=== PATIENT | female | born 1970 | race Caucasian/White ===

== ENCOUNTER 2019-08-10 10:29 | Outpatient (CLI) | payer BC, SELFPAY ==
--- NOTE | ~2019-08-10 | US_ITS ---
EXAMINATION: US thyroid DATE: 08/10/2019 11:09 INDICATION: Nontoxic goiter. Foc's. TECHNIQUE: Multiple ultrasound images of the thyroid were obtained. COMPARISON: None. FINDINGS: The right thyroid lobe measures 6.2 x 3.6 x 2.7 cm. The left thyroid lobe measures 5.5 x 2.1 x 2.5 c m. There is diffuse heterogeneously decreased echogenicity with coarsened echotexture and diffusely increased vascular flow on color Doppler throughout both thyroid lobes consistent with given history of Fco's thyroiditis. Again seen are couple relatively well-defined and homogeneous isoechoic s olid nodules (TI-RADS 3, mildly suspicious , FNA if >=2.5 cm, annual followup is >1.5 cm) in the de ep left thyroid lobe, the larger measuring 2.2 x 1.4 x 1.4 cm and 1.1 x 1.1 x 1.1 cm. Also unchanged is a well-defined round solid hypoechoic nodule with peripheral rim calcification measuring 10 x 9 x 9 mm in the right thyroid lobe. (TI-RADS 4, moderately suspicious , FNA if >=1.5 cm, annual followup is >1 cm). IMPRESSION: 1. Enlarged heterogeneous and hypervascular thyroid consistent with given history of Fco's thyr oiditis. 2. No interval change in a few thyroid nodules which remains below size criteria for biopsy and phillip nued annual ultrasound would be recommended. Reviewed, dictated and finalized at location A. IMPRESSION: 1. Enlarged heterogeneous and hypervascular thyroid consistent with given histo ry of Fco's thyroiditis. 2. No interval change in a few thyroid nodules which remains below size criteri a for biopsy and continued annual ultrasound would be recommended.
== END 2019-08-10 10:30 | disposition home or self-care (01) ==
PROVIDERS: PCP Internal Medicine; Visit Provider Internal Medicine Endocrinology, Diabetes & Metabolism
DX: E04.2 Nontoxic multinodular goiter (principal); E06.3 Autoimmune thyroiditis
CPT/HCPCS: 76536

== ENCOUNTER → 2020-01-04 13:46 | Outpatient (CLI) | payer BC, SELFPAY ==
--- NOTE | ~2020-01-04 | MM_ITS ---
EXAMINATION: MM screening tiago BI w mariam HISTORY: Screening mammogram TECHNIQUE: Craniocaudal and mediolateral oblique 3-D tomosynthesis images were obtained and synthetic 2-D images were generated. CAD analysis was submitted and interpreted. COMPARISON: 10/06/2018, 09/18/2017, 08/22/2016 bilateral digital screening mammogram examinations BREAST PARENCHYMAL COMPOSITION: The breasts are almost entirely fatty. FINDINGS: There is no evidence of suspicious mass, calcification, or architectural distortion to sugg est malignancy in either breast. There has been no suspicious interval change. IMPRESSION: 1. No mammographic evidence of malignancy. 2. Recommend routine screening mammography in one year. BI-RADS Category 1: Negative Reviewed, dictated and finalized at location A.
== END ==
PROVIDERS: PCP Internal Medicine; Visit Provider Nurse Practitioner
DX: Z12.31 Encounter for screening mammogram for malignant neoplasm of breast (principal)
CPT/HCPCS: 77063; 77067

== ENCOUNTER → 2020-06-13 11:17 | Outpatient (CLI) | payer BC, SELFPAY ==
--- NOTE | ~2020-06-13 | US_ITS ---
EXAMINATION: US thyroid DATE: 06/13/2020 11:43 INDICATION: Thyroid nodule. Fco's thyroiditis. TECHNIQUE: Multiple ultrasound images of the thyroid were obtained. COMPARISON: None. FINDINGS: The right thyroid lobe measures 5.2 x 3.3 x 3.1 cm. The left thyroid lobe measures 5.5 x 3.3 x 2.8 c m. Unchanged 10 mm solid hypoechoic TI-RADS 4 nodule with well-defined peripheral margin, in places echogenic and likely partially calcified. There is a new 2.0 cm wider than tall very hypoechoic poten tially anechoic nodules in the right thyroid with posterior acoustic enhancement, unclear whether cys tic TI RADS 1 or solid TI RADS 4 nodule. There are a couple isoechoic solid nodules with smooth faizan ns and without echogenic foci (TI-RADS 3, mildly suspicious , FNA if >=2.5 cm, annual followup is >1. 5 cm) at the deep inferior left thyroid lobe. The larger measures 2.2 x 1.9 x 1.6 cm which is mildly increased from prior measurements of 2.0 x 1.2 x 1.4 cm. The smaller and more cephalad nodule has inc reased from 1.1 cm to 1.3 cm in maximal diameter. There is heterogeneous decreased ecstasy with coars ened echotexture throughout the remainder of the thyroid consistent with given history of Fco's thyroiditis. IMPRESSION: 1. New 2 cm very hypoechoic nodules in the right thyroid lobe, unclear whether cystic TI RADS 1 or so lid TI RADS 4, the latter which would meet criteria for biopsy. Would recommend scheduling patient fo r ultrasound-guided biopsy which could be deferred if upon real-time evaluation the lesion appears de finitively cystic. 2. A few additional bilateral thyroid nodules which remain below consensus criteria for biopsy and wo uld recommend one-year follow-up ultrasound. Reviewed, dictated and finalized at location A. CONSULTANT IMPRESSION: 1. New 2 cm very hypoechoic nodules in the right thyroid lobe, unclear whether cystic TI RADS 1 or solid TI RADS 4, the latter which would meet criteria for b iopsy. Would recommend scheduling patient for ultrasound-guided biopsy which co uld be deferred if upon real-time evaluation the lesion appears definitively cy stic. 2. A few additional bilateral thyroid nodules which remain below consensus crit eria for biopsy and would recommend one-year follow-up ultrasound.
== END ==
PROVIDERS: Visit Provider Internal Medicine Endocrinology, Diabetes & Metabolism
DX: E04.1 Nontoxic single thyroid nodule (principal); R91.8 Other nonspecific abnormal finding of lung field
CPT/HCPCS: 76536

== ENCOUNTER → 2021-01-14 15:46 | Outpatient (CLI) | payer BC, SELFPAY ==
--- NOTE | ~2021-01-14 | MM_ITS ---
EXAMINATION: MM screening tiago BI w mariam HISTORY: Screening TECHNIQUE: Craniocaudal and mediolateral oblique 3-D tomosynthesis images were obtained and synthetic 2-D images were generated. CAD analysis was submitted and interpreted. COMPARISON: Comparison to multiple prior studies sequentially, with oldest reviewed study dated 07/28. BREAST PARENCHYMAL COMPOSITION: There are scattered areas of fibroglandular density. FINDINGS: There is no evidence of suspicious mass, calcification, or architectural distortion to sugg est malignancy in either breast. There has been no suspicious interval change. IMPRESSION: 1. No mammographic evidence of malignancy. 2. Recommend routine screening mammography in one year. BI-RADS Category 1: Negative Reviewed, dictated and finalized at location A.
== END ==
PROVIDERS: PCP Internal Medicine; Visit Provider Nurse Practitioner
DX: Z12.31 Encounter for screening mammogram for malignant neoplasm of breast (principal)
CPT/HCPCS: 77063; 77067

== ENCOUNTER 2022-04-15 00:08 | Day surgery (SDC) | payer BC, SELFPAY ==
[2022-04-01 14:44] VITALS: BMI 40.7
[2022-04-15 06:46] VITALS: BP 143/77; PULSE 95; RESP 18; TEMP 36.9; O2SAT 99
[2022-04-15 06:47] LABS: Glucose Point of Care 104 mg/dl (65-105)
[2022-04-15] MEDS: LACTATED RINGERS 1,000 ML 150 ML IV CONT (06:49)
--- NOTE | 2022-04-15 07:19 | SUR.PREOP ---
Pt reports LMP February 2022. Unable to urinate at this time. Pt denies any possibility of . Ok for no UPreg per Dr Tovar.
--- NOTE | 2022-04-15 07:21 | P.PNAN_ITS ---
Anes - Initial Pre Proc Eval Procedure: Operation Date: 04/15/22 08:00 Proposed Procedures p Screening Colonoscopy - Greg Jasso MD Date/Time: 04/15/22 07:21 Surgeon: Greg Jasso MD Pre Op Diagnosis: neoplasm screening Patient Data Age: 51 Gender: F Height: 1.57 m Weight: 99.9 kg Last Vital Signs Temp 98.5 F 04/15/22 06:46 Pulse 95 04/15/22 06:46 Resp 18 04/15/22 06:46 BP 143/77 H 04/15/22 06:46 Pulse Ox 99 04/15/22 06:46 O2 Del Method Room Air 04/15/22 06:46 Allergies Allergy/AdvReac Type Severity Reaction Status Date / Time No Known Allergies Allergy Verified 04/15/22 06:37 Home Medications Medication Instructions Recorded Confirmed Type icosapent ethyl 1 gram capsule 2 g PO BID 04/01/22 04/15/22 History (Vascepa) levothyroxine 75 mcg tablet 75 mcg PO DAILY 04/01/22 04/15/22 History (Synthroid) lisinopril 20 mg tablet 20 mg PO DAILY 04/01/22 04/15/22 History metformin 500 mg tablet,extended 500 mg PO DAILY 04/01/22 04/15/22 History release 24 hr metoprolol tartrate 25 mg tablet 25 mg PO BID 04/01/22 04/15/22 History semaglutide 0.25 mg or 0.5 mg (2 0.5 mg subcut DAILY 04/01/22 04/15/22 History mg/1.5 mL) subcutaneous pen injector (Ozempic) sertraline 50 mg tablet 50 mg PO DAILY 04/01/22 04/15/22 History Laboratory Tests 04/15/22 06:43 POC Capillary Glucose 104 mg/dl mg/dl (65-105) Patient hx anesthesia problems: none Family hx anesthesia problems: none Results Review: All pre-operative results and documents have been reviewed as part of the pre- operative evaluation. [facility] Family History Family History (Updated 05/26/16 @ 09:57 by DOCTOR UNKNOWN) Other Cerebrovascular accident Depression Diabetes mellitus Family history of malignant neoplasm of bone Family history of malignant neoplasm of thyroid Family history of osteoporosis Family history of thyroid disease Hypertension Social History Social History Smoking status: Never smoker Alcohol intake: never Spiritual care concerns: No Anes - Eval Final PreProcedure Day of Procedure 04/15/22 07:21 Patient weight: morbidly obese Heart: regular rate and rhythm Lungs: clear to auscultation Airway: Mallampati scale class II Neurological: alert and oriented Last oral intake: >/= 8 hours ASA classification: III Emergent: no Anesthetic plan: proceed Anesthesia type and monitoring: general GIVS and standard monitoring Results Review: All pre-operative results and documents have been reviewed as part of the pre- operative evaluation. Informed Consent: The patient's anesthetic plan and its attendant risks and benefits were discussed with the patient/family/POA. Questions were solicited and answers provided to the satisfaction of the patient/family/POA.
--- NOTE | 2022-04-15 07:46 | PM.HPGS ---
History of Present Illness History of Present Illness Consent: Risks, benefits, and alternatives have been discussed and questions answered. Patient agrees to proceed with procedure. Chief complaint: neoplasm screening Narrative: Alice Vazquez is a 51 year old female here for first screening colonoscopy Review of Systems Constitutional: Constitutional: Denies headache(s) and Denies weakness Eyes: Eyes: Denies blurry vision ENT: Reports Normal hearing present, Denies headache(s) and Denies neck pain Cardiovascular: Cardiovascular: Denies chest pain and Denies dyspnea Respiratory: Respiratory: Denies dyspnea Gastrointestinal: Gastrointestinal: Reports no additional gastrointestinal complaints Genitourinary: Genitourinary: Denies dysuria Musculoskeletal: Musculoskeletal: Denies neck pain Integumentary/Breasts: Skin/Breast: Denies dry skin Neurologic: Reports Normal hearing present, Denies headache(s) and Denies weakness Psychiatric: Psychiatric: Denies anxiety Endocrine: Endocrine: Denies change in body appearance Hematologic/Lymphatic: Hematologic/Lymphatic: Denies easy bleeding Allergic/Immunologic: Allergic/Immunologic: Denies urticaria [facility] Past Medical History Medical History (Updated 04/15/22 @ 07:47 by Greg Jasso MD) Colon cancer screening Family History Family History (Updated 05/26/16 @ 09:57 by DOCTOR UNKNOWN) Other Cerebrovascular accident Depression Diabetes mellitus Family history of malignant neoplasm of bone Family history of malignant neoplasm of thyroid Family history of osteoporosis Family history of thyroid disease Hypertension Social History Social History Smoking status: Never smoker Alcohol intake: never Spiritual care concerns: No Meds Home Medications and Allergies Home Medications Medication Instructions Recorded Confirmed Type icosapent ethyl 1 gram capsule 2 g PO BID 04/01/22 04/15/22 History (Vascepa) levothyroxine 75 mcg tablet 75 mcg PO DAILY 04/01/22 04/15/22 History (Synthroid) lisinopril 20 mg tablet 20 mg PO DAILY 04/01/22 04/15/22 History metformin 500 mg tablet,extended 500 mg PO DAILY 04/01/22 04/15/22 History release 24 hr metoprolol tartrate 25 mg tablet 25 mg PO BID 04/01/22 04/15/22 History semaglutide 0.25 mg or 0.5 mg (2 0.5 mg subcut DAILY 04/01/22 04/15/22 History mg/1.5 mL) subcutaneous pen injector (Ozempic) sertraline 50 mg tablet 50 mg PO DAILY 04/01/22 04/15/22 History Allergies Allergy/AdvReac Type Severity Reaction Status Date / Time No Known Allergies Allergy Verified 04/15/22 06:37 Vital Signs Vital Signs - 24 hr 04/15/22 06:46 Temperature 98.5 F Pulse Rate 95 Respiratory Rate 18 Blood Pressure 143/77 H Pulse Oximetry 99 Oxygen Delivery Room Air Exam Const: General: comfortable and no acute distress HENMT: Face/Nose/Sinus: Normal nares present Eyes: General: appearance normal, both eyes and all related structures Neck: Neck: no JVD Resp: Auscultation: clear to auscultation bilaterally Cardio: Rate: regular rate Rhythm: regular rhythm GI: Inspection: non-distended GI Palp: Yes Soft to palpation Skin: General skin exam: normal color Neuro: General: gait normal Speech: normal speech Extrem: General: normal to inspection Psych: Mental Status: mental status grossly normal Assessment and Plan Assessment and plan (1) Colon cancer screening: Code(s): Z12.11 - Encounter for screening for malignant neoplasm of colon Status: Acute Assessment and Plan: colonoscopy
[2022-04-15 08:18] VITALS: BP 98/54; PULSE 83; RESP 22; O2SAT 98
[2022-04-15 08:28] VITALS: BP 103/54; PULSE 84; RESP 22; O2SAT 94
[2022-04-15 08:38] VITALS: BP 108/64; PULSE 80; RESP 20; O2SAT 93
== END 2022-04-15 08:48 | disposition home or self-care (01) ==
PROVIDERS: PCP Internal Medicine; Visit Provider Internal Medicine Gastroenterology
PROC: 0DJD8ZZ Inspection of Lower Intestinal Tract, Via Natural or Artificial Opening Endoscopic (ICD-10-PCS; CPT 45378; principal; 2022-04-15 08:00)
DX: Z12.11 Encounter for screening for malignant neoplasm of colon (principal); D12.2 Benign neoplasm of ascending colon; K57.30 Diverticulosis of large intestine without perforation or abscess without bleeding; K64.8 Other hemorrhoids; Z79.84 Long term (current) use of oral hypoglycemic drugs; Z79.899 Other long term (current) drug therapy; E66.01 Morbid (severe) obesity due to excess calories; Z68.41 Body mass index [BMI] 40.0-44.9, adult
CPT/HCPCS: 45385; 45381; 82948; 88305; J2704; J7120

== ENCOUNTER → 2022-04-18 11:13 | Outpatient (CLI) | payer BC, SELFPAY ==
--- NOTE | ~2022-04-18 | MM_ITS ---
EXAMINATION: MM screening tiago BI w mariam HISTORY: Screening mammogram TECHNIQUE: Craniocaudal and mediolateral oblique 3-D tomosynthesis images were obtained and synthetic 2-D images were generated. CAD analysis was submitted and interpreted. COMPARISON: 01/14/2021, 01/04/2020, 10/06/2018 bilateral screening mammogram examinations BREAST PARENCHYMAL COMPOSITION: The breasts are almost entirely fatty. FINDINGS: There is no evidence of suspicious mass, calcification, or architectural distortion to sugg est malignancy in either breast. There has been no suspicious interval change. IMPRESSION: 1. No mammographic evidence of malignancy. 2. Recommend routine screening mammography in one year. BI-RADS Category 1: Negative Reviewed, dictated and finalized at location A. R OPERATOR
== END ==
PROVIDERS: PCP Internal Medicine; Visit Provider Nurse Practitioner
DX: Z12.31 Encounter for screening mammogram for malignant neoplasm of breast (principal)
CPT/HCPCS: 77063; 77067

== ENCOUNTER 2023-07-15 13:25 | Outpatient (CLI) | payer BC, SELFPAY ==
--- NOTE | ~2023-07-15 | MM_ITS ---
EXAMINATION: MM screening tiago BI w mariam HISTORY: Screening mammogram TECHNIQUE: Craniocaudal and mediolateral oblique 3-D tomosynthesis images were obtained and synthetic 2-D images were generated. CAD analysis was submitted and interpreted. COMPARISON: 04/18/2022, 01/14/2021 bilateral screening mammogram examinations BREAST PARENCHYMAL COMPOSITION: The breasts are almost entirely fatty. FINDINGS: There is no evidence of suspicious mass, calcification, or architectural distortion to sugg est malignancy in either breast. There has been no suspicious interval change. IMPRESSION: 1. No mammographic evidence of malignancy. 2. Recommend routine screening mammography in one year. BI-RADS Category 1: Negative Reviewed, dictated and finalized at location A.
== END 2023-07-15 13:26 ==
LOC: MICIMG 13:26
PROVIDERS: PCP Nurse Practitioner; Visit Provider Nurse Practitioner
DX: Z12.31 Encounter for screening mammogram for malignant neoplasm of breast (principal)
CPT/HCPCS: 77063; 77067

== ENCOUNTER 2023-10-05 10:45 | Outpatient (CLI) | payer BC, SELFPAY ==
--- NOTE | ~2023-10-05 | US_ITS ---
EXAMINATION: US thyroid DATE: 10/05/2023 11:03 INDICATION: Fco's thyroiditis. TECHNIQUE: Multiple ultrasound images of the thyroid were obtained. COMPARISON: Ultrasound 06/13/2020, 02/13/2016, 11/13/17 FINDINGS: The right thyroid lobe measures 7.7 x 3.1 x 2.9 cm. The left thyroid lobe measures 7.0 x 3.6 x 3.2 c m. The thyroid is diffusely heterogeneous and hypoechoic without any normal parenchyma. Vascularity is normal. In the right thyroid lobe, there is a 3.7 cm mixed cystic and solid, hyperechoic, wider th an tall nodule with smooth margin without echogenic foci (TI-RADS TR2). IMPRESSION: 1. Chronically heterogeneous thyroid, likely chronic lymphocytic (Fco) thyroiditis. 2. Right thyroid nodule, likely not clinically significant. No follow-up is needed. Reviewed, dictated and finalized at location E. IMPRESSION: 1. Chronically heterogeneous thyroid, likely chronic lymphocytic (Fco) th yroiditis. 2. Right thyroid nodule, likely not clinically significant. No follow-up is nee ded.
== END 2023-10-05 10:46 ==
PROVIDERS: PCP Nurse Practitioner; Visit Provider Internal Medicine
DX: E06.3 Autoimmune thyroiditis (principal)
CPT/HCPCS: 76536

== ENCOUNTER 2024-05-17 12:35 | Outpatient (CLI) | payer BC, SELFPAY ==
--- NOTE | ~2024-05-17 | US_ITS ---
EXAMINATION: US THYROID BIOPSY DATE: 05/17/2024 17:55 HONING JOB SETTER INDICATION: Bilateral thyroid nodules TECHNIQUE: The procedure for biopsy of the thyroid nodules and its benefits and risks were explained to the wally ent. Potential risk included were not limited to bleeding, infection, and nondiagnostic specimen. The right neck was prepped and draped in the usual sterile manner. 3 cc 1% lidocaine was used for local anesthesia. [6 passes were made with a 25G needle into the righ t-sided thyroid nodule. Appropriate needle location was documented with continuous sonographic willis nce. The specimens were passed to the cytopathologist in the room. All needles were removed and a sterile bandage applied over the biopsy site. Attention was then turned to the left neck. The left neck was prepped and draped in the usual sterile manner. 3 cc 1% lidocaine was used for local anesthesia. [6 passes were made with a 25G needle into the left -sided thyroid nodule. Appropriate needle location was documented with continuous sonographic guidan ce. The specimens were passed to the cytopathologist in the room. All needles were removed and a sterile bandage applied over the biopsy site. The patient tolerated the procedures without immediate complications or complaints. FINDINGS: Sonographic imaging demonstrates the needles advanced into the bilateral thyroid nodules fo r biopsy. IMPRESSION: 1. Successful ultrasound guided biopsy of bilateral thyroid nodules. Please refer to pathology repo rt for final histologic analysis. Reviewed, dictated and finalized at location A. NG JOB SETTER IMPRESSION: 1. Successful ultrasound guided biopsy of bilateral thyroid nodules. Please r efer to pathology report for final histologic analysis.
--- OUTSIDE RECORDS SUMMARY | 2024-05-17 13:09 | XMS_ITS ---
Author Organization [facility] Address [address] [place] [address] Care Team Providers Care Search Engine Optimization Specialist Name Role Phone Gautam Parker MD Primary Care Provider Marcia Watson Unavailable [phone] REASON FOR VISIT SCIT - Traditional Schedule Allergy immunotherapy Medications Medication SIG (Take, Route, Frequency, Duration) Notes Start Date End Date Status SIT (TRADITIONAL) variable per schedule SC per schedule for to be determined Active Encounters Encounter Location Date Provider Diagnosis [facility] [address] [place] [id number] 05/09/2024 Marcia Wade Allergic rhinitis du e to pollen J30.1 ; Other allergic rhinitis J30.89 and Other chronic allergic conjunctivitis H10.45 Assessments Encounter Date Diagnosis (ICD Code) Assessment Notes Treatment Notes Treatment Clinical Notes Section Notes 05/09/2024 Allergic rhinitis due to pollen (ICD-10 - J30.1) 05/09/2024 Other allergic rhinitis (ICD-10 - J30.89) 05/09/2024 Other chronic allergic conjunctivitis (ICD-10 - H10.45) Plan Of Treatment Medication Medication Name Sig Start Date Stop Date Notes SIT (TRADITIONAL) variable per schedule SC per schedule for to be determined Next Appt Details Follow Up: 1 Week, Reason: Provider Name:Marcia brown, 06/06/2024 09:00:00 AM, [address], [place], [address], Progress Notes * Arik VAZQUEZ:1970 (53 yo F)Acc No.[id number]:05/09/2024 SCIT-Aeroallergen Patient:Alice BERNAL Provider:?Marcia Wade MD :1970???Age:53 Y???Sex:Female D ate:05/09/2024 Address:[address] [place], [place] [phone] Pcp:Gautam Parker MD Subjective: * Chief Complaints: * ???SCIT - Traditional [place] Allergy immunotherapy * HPI: ???*Introduction:? The patient is here for scheduled immunotherapy. Please see the attached specialty form regarding the specifics of the administration of these vaccines. As per our protocol, they must undergo a screening health questionnaire (medication changes, reaction(s) to last immunotherapy dose(s), current health status, ACT (if appropriate), self-injectable epinephrine on patient(?) and peak flow (if appropriate)). Also, the patient must wait in our office for 30 minutes after receiving the vaccine(s). Furthermore, every patient must have an epinephrine pen (self-injectable) with them at the time of administration--and carry if for the following 1.5 hours after they leave our office. The patient must also have taken their antihistamine the day of the injection, preferably 2 hours prior. The consent form for SCIT (subcutaneous immunotherapy) is on file. * Medical History:? * Surgical History:? * Hospitalization/Major Diagno stic Procedure:? * Medications:? Objective: * Vitals:? Assessment: * Assessment: 1.?Allergic rhinitis due to pollen - J30.1 (Primary)???2.?Other allergic rhinitis - J30.89???3.?Other chronic allergic conjunctivitis - H10.45??? Plan: * Treatment: * Procedure Codes:?67502 IMMUN OTHERAPY INJECTIONS * Follow Up:?1 Week * Billing Information: * Visit Code:? * Procedure Codes:? 43038 IMMUNOTHERAPY INJECTIONS. * K ARCHER Sign off status: Completed true * Provider:?Marcia Wade MD Date:?04/21 Generated for Karin rosario/Margie/Vernonitting on:?05/17/2024 01:08 PM SHANK ARCHER History and Physical Notes * HPI (History of Present Illness) Category Sub-Category Detail Notes Category Not es *Introduction The patient is here for scheduled immunotherapy. Please see the attached specialty form regarding the specifics of the administration of these vaccines. As per our protocol, they must undergo a screening health questionnaire (medication changes, reaction(s) to last immunotherapy dose(s), current health status, ACT (if appropriate), self-injectable epinephrine on patient(?) and peak flow (if appropriate)). Also, the patient must wait in our office for 30 minutes after receiving the vaccine(s). Furthermore, every patient must have an epinephrine pen (self-injectable) with them at the time of administration--and carry if for the following 1.5 hours after they leave our office. The patient must also have taken their antihistamine the day of the injection, preferably 2 hours prior. The consent form for SCIT (subcutaneous immunotherapy) is on file.
--- OUTSIDE RECORDS SUMMARY | 2024-05-17 13:09 | XMS_ITS | Clinical Summary ---
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 Gender Identity Not on file Sexual Orientation Not on file Plan of Treatment Health Maintenance Due Date Last Done Comments Hepatitis C Virus (HCV) Screening 1970 TdaP Immunization 1970 Hepatitis B Immunization (1 of 3 - 19+ 3-dose series) 1990 Pap Smear 1992 Cervical Cancer Screening (CCS) 2001 HPV/Cotest 2001 Colonoscopy 2016 Colorectal Cancer Screening 2016 Cologuard 2021 Immunochemical Fecal Occult Blood 2021 Mammogram 2021 Pneumococcal Immunization (5 0+ years) (1 of 1 - PCV) 2021 Zoster Immunization (1 of 2) 2021 Influenza Immunization (#1) 2023 04/21/2020 SARS-COV-2 Immunization ( season) 2023 03/12/2021, 08/06/2020, 07/16/2020 Respiratory Syncytial Virus (RSV) Immunization (Adult) (1 - 1-dose 75+ series) 2046 Meningococcal Immunization (ACWY) Aged Out No longer eligible b ased on patient's age to complete this topic Pneumococcal Immunization Combined Aged Out No longer eligible b ased on patient's age to complete this topic Rotavirus Immunization Aged Out No lo nger eligible based on patient's age to complete this topic
--- OUTSIDE RECORDS SUMMARY | 2024-05-17 13:09 | XMS_ITS ---
Author Organization [facility] Address [address] [place] [address] Care Team Providers Care Cold Storage Superintendent Name Role Phone Gautam Parker MD Primary Care Provider Marcia Watson Unavailable [phone] REASON FOR VISIT SCIT - Traditional Schedule Allergy immunotherapy Medications Medication SIG (Take, Route, Frequency, Duration) Notes Start Date End Date Status SIT (TRADITIONAL) variable per schedule SC per schedule for to be determined Active Encounters Encounter Location Date Provider Diagnosis [facility] [address] [place] [phone] 04/11/2024 Marcia Wade Allergic rhinitis du e to pollen J30.1 ; Other allergic rhinitis J30.89 and Other chronic allergic conjunctivitis H10.45 Assessments Encounter Date Diagnosis (ICD Code) Assessment Notes Treatment Notes Treatment Clinical Notes Section Notes 04/11/2024 Allergic rhinitis due to pollen (ICD-10 - J30.1) 04/11/2024 Other allergic rhinitis (ICD-10 - J30.89) 04/11/2024 Other chronic allergic conjunctivitis (ICD-10 - H10.45) Plan Of Treatment Medication Medication Name Sig Start Date Stop Date Notes SIT (TRADITIONAL) variable per schedule SC per schedule for to be determined Next Appt Details Follow Up: 1 Week, Reason: Provider Name:Marcia brown, 06/06/2024 09:00:00 AM, [address], [address], [place], [address], Progress Notes * Arik VAZQUEZ:1970 (53 yo F)Acc No.[id number]:04/11/2024 SCIT-Aeroallergen Patient:Alice BERNAL Provider:?Marcia Wade MD :1970???Age:53 Y???Sex:Female D ate:04/11/2024 Address:[address] [place], [place] [phone] Pcp:Gautam Parker MD Subjective: * Chief Complaints: [...] - H10.45??? Plan: * Treatment: * Procedure Codes:?87332 IMMUN OTHERAPY INJECTIONS * Follow Up:?1 Week * Billing Information: * Visit Code:? * Procedure Codes:? 68992 IMMUNOTHERAPY INJECTIONS. * GER SURGERY Sign off status: Completed true * Provider:?Marcia Wade MD Date:?03/21 Generated for Karin rosario/Margie/Vernonitting on:?05/17/2024 01:09 PM MANAGER SURGERY History and Physical Notes * HPI (History [...]
--- OUTSIDE RECORDS SUMMARY | 2024-05-17 13:09 | XMS_ITS ---
Author Organization 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 [place] Name Role Phone Gautam Parker MD Primary Care Provider Marcia Watson Unavailable [phone] REASON FOR VISIT [facility] - Traditional Schedule Allergy immunotherapy Medications Medication SIG (Take, Route, Frequency, Duration) Notes Start Date End Date Status Levocetirizine Dihydrochloride 5 MG 1 tab(s) orally once a day (in the evening) for 30 day(s) Active Azelastine HCl 137 MCG/SPRAY 2 spray(s) intranasally 2 times a day for 90 days Active Azelastine HCl 137 MCG/SPRAY 2 spray(s) intranasally 2 times a day for 30 day(s) Active Auvi-Q 0.3 MG/0.3ML as directed intramuscularly once for 1 days Active AUVI-Q 0.3 mg as directed once intramuscularly 30 day(s) for 30 Active AZELASTINE HYDROCHLORIDE NASAL 137 mcg/inh 2 spray(s) intranasally 2 times a day for 30 day(s) Active AUVI -Q 0.3 mg as directed intramuscularly once for 1 days Active METOPROLOL TARTRATE 100 mg 1 tab(s) orally Qday Active SYNTHROID 50 mcg (0.05 mg) 1 tab(s) orally Qday Active LISINOPRIL 20 mg 1 tab(s) orally Qday Active AZELASTINE HYDROCHLORIDE NASAL 137 mcg/inh 2 spray(s) intranasally 2 times a day for 90 days Active LEVOCETIRIZINE DIHYDROCHLORIDE 5 mg 1 tab(s) orally once a day (in the evening) for 30 day(s) Active Lisinopril 20 MG 1 tab(s) orally Qday Active SIT (TRADITIONAL) variable per schedule SC per schedule for to be determined Active Auvi-Q 0.3 MG/0.3ML as directed once intramuscularly 30 day(s) for 30 Active Synthroid 50 MCG 1 tab(s) orally Qday Active Metoprolol Tartrate 100 MG 1 tab(s) orally Qday Active Encounters Encounter Location Date Provider Diagnosis [facility] [address] [place] [address] 04/05/2024 Marcia Wade Allergic rhinitis du e to pollen J30.1 ; Other allergic rhinitis J30.89 and Other chronic allergic conjunctivitis H10.45 Assessments Encounter Date Diagnosis (ICD Code) Assessment Notes Treatment Notes Treatment Clinical Notes Section Notes 04/05/2024 Allergic rhinitis due to pollen (ICD-10 - J30.1) 04/05/2024 Other allergic rhinitis (ICD-10 - J30.89) 04/05/2024 Other chronic allergic conjunctivitis (ICD-10 - H10.45) Plan Of Treatment Medication Medication Name Sig Start Date Stop Date Notes SIT (TRADITIONAL) variable per schedule SC per schedule for to be determined Next Appt Details Follow Up: 1 Week, Reason: Provider Name:Marcia brown, 06/06/2024 09:00:00 AM, [address], [address], [place], [address], Progress Notes * Alice VAZQUEZDOB:1970 (53 yo F)Acc No.[id number]:04/05/2024 [facility]-Aeroallerg[facility] Patient:?Alice VAZQUEZ Provider:?Marcia Wade MD :1970???Age:53 Y???Sex:Female D ate:04/05/2024 Address:[address] [place], [place] [id number] Pcp:Gautam Parker MD Subjective: * Chief Complaints: [...] History:? * Hospitalization/Major Diagno stic Procedure:? * Medications:?TakingSIT (TRAD ITIONAL) variable see record per schedule SC per schedule AZELASTINE HYDROCHLORIDE NASAL 137 mcg/inh spray 2 spray(s) intranasally 2 times a day LEVOCETIRIZINE DIHYDROCHLORIDE 5 mg tablet 1 tab(s) orally once a day (in the evening) AUVI -Q 0.3 mg kit as directed intramuscularly once AZELASTINE HYDROCHLORIDE NASAL 137 mcg/inh spray 2 spray(s) intranasally 2 times a day SYNTHROID 50 mcg (0.05 mg) tablet 1 tab(s) orally Qday METOPROLOL TARTRATE 100 mg tablet 1 tab(s) orally Qday LISINOPRIL 20 mg tablet 1 tab(s) orally Qday AUVI-Q 0.3 mg kit as directed once intramuscularly 30 day(s) Azelastine HCl 137 MCG/SPRAY Solution 2 spray(s) intranasally 2 times a day Levocetirizine Dihydrochloride 5 MG Tablet 1 tab(s) orally once a day (in the evening) Auvi-Q 0.3 MG/0.3ML Solution Auto-injector as directed intramuscularly once Azelastine HCl 137 MCG/SPRAY Solution 2 spray(s) intranasally 2 times a day Synthroid 50 MCG Tablet 1 tab(s) orally Qday Metoprolol Tartrate 100 MG Tablet 1 tab(s) orally Qday Lisinopril 20 MG Tablet 1 tab(s) orally Qday Auvi-Q 0.3 MG/0.3ML Solution Auto-injector as directed once intramuscularly 30 day(s) Taking SIT (TRADITIONAL) variable see record per schedule SC per schedule Taking AZELASTINE HYDROCHLORIDE NASAL 137 mcg/inh spray 2 spray(s) intranasally 2 times a day Taking LEVOCETIRIZINE DIHYDROCHLORIDE 5 mg tablet 1 tab(s) orally once a day (in the evening) Taking AUVI -Q 0.3 mg kit as directed intramuscularly once Taking AZELASTINE HYDROCHLORIDE NASAL 137 mcg/inh spray 2 spray(s) intranasally 2 times a day Taking SYNTHROID 50 mcg (0.05 mg) tablet 1 tab(s) orally Qday Taking METOPROLOL TARTRATE 100 mg tablet 1 tab(s) orally Qday Taking LISINOPRIL 20 mg tablet 1 tab(s) orally Qday Taking AUVI-Q 0.3 mg kit as directed once intramuscularly 30 day(s) Taking Azelastine HCl 137 MCG/SPRAY Solution 2 spray(s) intranasally 2 times a day Taking Levocetirizine Dihydrochloride 5 MG Tablet 1 tab(s) orally once a day (in the evening) Taking Auvi-Q 0.3 MG/0.3ML Solution Auto-injector as directed intramuscularly once Taking Azelastine HCl 137 MCG/SPRAY Solution 2 spray(s) intranasally 2 times a day Taking Synthroid 50 MCG Tablet 1 tab(s) orally Qday Taking Metoprolol Tartrate 100 MG Tablet 1 tab(s) orally Qday Taking Lisinopril 20 MG Tablet 1 tab(s) orally Qday Taking Auvi-Q 0.3 MG/0.3ML Solution Auto-injector as directed once intramuscularly 30 day(s) Objective: * Vitals:? Assessment: * Assessment: 1.?Allergic rhinitis due to pollen - J30.1 (Primary)???2.?Other allergic rhinitis - J30.89???3.?Other chronic allergic conjunctivitis - H10.45??? Plan: * Treatment: * Procedure Codes:?72943 IMMUN OTHERAPY INJECTIONS * Follow Up:?1 Week * Billing Information: * Visit Code:? * Procedure Codes:? 15544 IMMUNOTHERAPY INJECTIONS. * [employer] LEAD Sign off status: Completed true * Provider:?Marcia Wade MD Date:?03/20 Generated for Karin rosario/Margie/Kevin on:?05/17/2024 01:08 PM COMMODITY LEAD History and Physical Notes * HPI (History [...]
--- OUTSIDE RECORDS SUMMARY | 2024-05-17 13:09 | XMS_ITS | Data Portability ---
Author Organization [facility] [employer], Main Office Address [address] [place] [address] Care Team Providers Care Stacker Driver Name Role Phone KING PARKER Primary Care Provider [phone] Assessment No assessment recorded. Plan of Treatment Reminders Order Date Submit Date Provider Last Modified By Organization Details Last Modified Time Details Appointments None recorded. Lab lipid panel, serum 2022 023 [email or web address] [facility] (Lab), [address] [place], [address], 3 10:10:44 glycohemogl obin, total, blood 2022 023 [facility] (Lab), [address] [place], [address], 3 13:33:04 microalbumi n/creatinin e, ratio, urine 2022 023 [facility] (Lab), [address] [place], [address], 3 13:08:05 CMP, serum or plasma [id number] (Lab), [address] [place], [address], 3 17:10:52 TSH, serum or plasma [email or web address] (Lab), [address] [place], [address], 3 17:10:52 T4, free, serum 2022 023 [email or web address] [facility] (Lab), [address] [place], [address], 17:10:52 HbA1c (hemoglobin A1c), blood 2022 023 [id number] [facility] (Lab), [address] [place], [address], 09:58:32 microalbumi n/creatinin e, mass ratio, urine 2022 023 [email or web address] [facility] (Lab), [address] [place], [address], 09:58:32 CBC w/ auto diff 2022 023 [email or web address] [facility] (Lab), [address] [place], [address], 09:58:31 CMP, serum or plasma 2022 023 [facility] (Lab), [address] [place], [address], 09:58:31 lipid panel, serum 2022 023 [email or web address] [facility] (Lab), [address] [place], [address], 09:58:31 T4, free, serum 2022 023 [email or web address] [facility] (Lab), [address] [place], [address], 09:58:31 TSH, serum or plasma [email or web address] [place] [address] (Lab), [address] [place], [address], 3 09:58:32 glycohemogl obin, total, blood [email or web address] [place] [address] (Lab), [address] [place], [address], 4 17:32:07 TSH, serum or plasma [id number] [place] [address] (Lab), [address] [place], [address], 4 17:32:07 T4, free, serum [id number] [place] [address] (Lab), [address] [place], [address], 4 17:32:07 lipid panel, serum [id number] [place] [address] (Lab), [address] [place], [address], 4 17:32:06 CMP, serum or plasma [id number] [place] [address] Center (Lab), [address] [place], [address], 4 17:32:07 CBC w/ auto diff [email or web address] [place] [address] (Lab), [address] [place], [address], 4 17:32:06 Referral None recorded. Procedures None recorded. Surgeries None recorded. Imaging None recorded. Medication Orders Ozempic 1 mg/dose (4 mg/3 mL) subcutaneou s pen injector 2022 023 [id number], [address] [facility], [place], [place], [id number], 3 17:10:02 metformin ER 500 mg tablet,exte nded release 24 hr 2022 023 [id number], [address], [place], [place], [id number], 17:10:32 Patient TargetsNo targets recorded. Patient Instructions Encounter Date Encounter Id Patient Instructions Last Modified By Organization Details Last Modified Time 07/16/2022 [id number] Follow-up hypertension -hyperlipidemia - type 2 diabetes-anxiety disorder -obesity -of hypothyroidism all clinically stable. Has had recent blood work performed by endocrinology. Will continue with current Rx at this time. Follow-up in six months [email or web address] Not available 07/16/2022 16:12:56 01/21/2023 [id number] risk assessment* Not availabl e 01/21/2023 15:35:59 INFLUENZA VACCIN E TD/TDAP Recommended today, patient declined Ordered Pat ient will get at local pharmacy/health department PNEUMONIA VACCINE Ordered Recommended today, patient declined Patient will get at local pharmacy/health department Recommend ed at age 65 SHINGLES Ordered Recommended today, patient declined Patient will get at local pharmacy/health department MAMMOGRAM: Last Mammogram DEXA SCAN CERVICAL SCREENING/PELVIC EXAMINATION Recommended today, but patient declined Ordered No screening necessary patient is up to date COLORECTAL SCREENING: Last Colonoscopy DEPRESSION SCREENING Negative BMI Overweight continue your current weight loss efforts try to lose 5% of your body weight try to lose 10% of your body weight NUTRITION PHYSICAL ACTIVITY VISION ALCOHOL USE No alcohol use TOBACCO USE LUNG CANCER SCREENING Non Smoker-not indicated SEXUALLY ACTIVE HEPATITIS C SCREENING Not indicated GLUCOSE SCREENING LIPID SCREENING [email or web address] Not available 01/21/2023 15:24:38 Well patient evaluation and risk assessment stable. Follow-up for hypertension -hyperlipidemia -diabetes mellitus. Check blood work consisting of a CBC, CMP, lipid, thyroid, hemoglobin A1c and microalbumin. Continue on current Rx follow-up in six months FDA recommendations of a influenza, RSV, COVID, pneumococcal immunizations strongly advised. Portions of the record may have been created with voice recognition software. Occasional wrong-word or ? [id number]? substitutions may have occurred due to the inherent limitations of voice recognition software. Read the chart carefully and recognize, using context, where substitutions have occurred. Next Appt: 6 Months Approximate Date: 07/20/2023 [email or web address] Not available 01/21/2023 15:35:41 07/22/2023 [id number] Follow-up hypertension, hyperlipidemia, hypothyroidism, type 2 diabetes and anxiety disorder all clinically stable. Did increase her rosuvastatin recently 20 mg daily. Will check blood work consisting of CBC, CMP, lipid and, thyroid and hemoglobin A1c level. Will hold off for approximately for two weeks to have this done because of the recent increase in dosage of the rosuvastatin. Follow-up in six months Next Appt: 6 Months Approximate Date: 01/18/2024 Portions of the record may have been created with voice recognition software. Occasional wrong-word or ? [id number]? substitutions may have occurred due to the inherent limitations of voice recognition software. Read the chart carefully and recognize, using context, where substitutions have occurred. [email or web address] Not available 07/22/2023 15:34:03 01/20/2024 [id number] Follow-up essent ial hypertension, hyperlipidemia, hypothyroidism, obesity class two as well as Gastroenterology esophageal reflux all clinically stable. Has had recent blood work performed which looked excellent. Will continue on current Rx follow-up in six months Follow Up: 6 Months Approximate Date: 07/18/2024 Portions of the record may have been created with voice recognition software. Occasional wrong-word or ? [id number]-[id number]? substitutions may have occurred due to the inherent limitations of voice recognition software. Read the chart carefully and recognize, using context, where substitutions have occurred. [email or web address] Not available 01/20/2024 15:26:20 Reason for Referral None Reported. Results Created Date Observation Date Name Description Value Unit Range Abnormal Flag Note LastModifiedBy Organization Detail LastModifiedTime 07/08/1907/07/2022 COMPR EHENS IESHA METAB OLIC PANEL sodium 136 mmol/ L 137-14 5 low Not Available [facility] (Lab) [address] [place], [address], 07/07/2022 14:23:55 07/08/1910 0707/07/2022 COMPR EHENS IESHA METAB OLIC PANEL potassium 4.1 mmol/ L 3.5-5. 1 Not Available [facility] (Lab) [address] [place], [address], 07/07/2022 14:23:55 07/08/19 23 07/07/2022 COMPR EHENS IESHA METAB OLIC PANEL chloride 104 mmol/ L 98-107 Not Available [facility] (Lab) [address] [place], [address], 07/07/2022 14:23:55 07/08/19 23 07/07/2022 COMPR EHENS IESHA METAB OLIC PANEL carbon dioxide 25 mmol/ L 22-30 Not Available [facility] (Lab) [address] [place], [address], 07/07/2022 14:23:55 07/08/19 23 07/07/2022 COMPR EHENS IESHA METAB OLIC PANEL anion gap 11.1 mmol/ L 14-22 low Not Available [facility] (Lab) [address] [place], [address], 07/07/2022 14:23:55 07/08/19 23 07/07/2022 COMPR EHENS IESHA METAB OLIC PANEL glucose 90 mg/dL 70-99 Not Available [facility] (Lab) [address] [place], [address], 07/07/2022 14:23:55 07/08/19 23 07/07/2022 COMPR EHENS IESHA METAB OLIC PANEL BUN 12 mg/dL 8-19 Not Available [facility] (Lab) [address] [place], [address], 07/07/2022 14:23:55 07/08/19 23 07/07/2022 COMPR EHENS IESHA METAB OLIC PANEL creatinine 0.77 mg/dL 0.66-1 .25 Not Available [facility] (Lab) [address] [place], [address], 07/07/2022 14:23:55 07/08/19 23 07/07/2022 COMPR EHENS IESHA METAB OLIC PANEL GFR >60 Refer ence Range : [place] ge GFR Healt hy Adult : >60 mL/mi n/1.7 3 m2 Chron ic Kidne y Disea se: 15-60 mL/mi n/1.7 3 m2 Kidne y Failu re: <15/m L/min /1.73 m2 www.n iddk. nih.g ov The MDRD study equat ion has not been valid ated in child pao <18 years of age; pregn ant women ; the elder ly >85 years of age; or in some racia l or ethni c subgr oups, such as Hisnv nics. Outsi de the valid ated richie eters , estim ated GFR is less accur ate, requi ring clini aisha judgm ent on a case- by-ca se basis . Clini aisha inter preta tion for other races and ages must be made by the clini desiree. The MDRD study equat ion has not been valid ated for the evalu ation of serum creat inine relat ed to nutri di l statu s or medic ation usage . For perso ns <18 years of age, a pedia tric GFR calcu lator is avail able on the [facility] websi te: https :[email or web address] snell.awais elizabeth.o rg/pr ofess ional s/kdo qi/gf r_cal culat or Not Available [facility] (Lab) [address] [place], [address], 07/07/2022 14:23:55 07/08/1907/07/2022 COMPR EHENS IESHA METAB OLIC PANEL alkaline phosphatase 65 U/L 38-126 Not Available [facility] (Lab) [address] [place], [address], 07/07/2022 14:23:55 07/08/19 23 07/07/2022 COMPR EHENS IESHA METAB OLIC PANEL alanine aminotransfe rase 27 U/L 0-35 Not Available [facility] (Lab) [address] [place], [address], 07/07/2022 14:23:55 07/08/19 23 07/07/2022 COMPR EHENS IESHA METAB OLIC PANEL aspartate aminotransfe rase 26 U/L 15-37 Not Available [facility] (Lab) [address] [place], [address], 07/07/2022 14:23:55 07/08/19 23 07/07/2022 COMPR EHENS IESHA METAB OLIC PANEL bilirubin, total 0.40 mg/dL 0.20-1 .30 Not Available [facility] (Lab) [address] [place], [address], 07/07/2022 14:23:55 07/08/19 23 07/07/2022 COMPR EHENS IESHA METAB OLIC PANEL calcium 8.8 mg/dL 8.4-10 .2 Not Available [facility] (Lab) [address] [place], [address], 07/07/2022 14:23:55 07/08/19 23 07/07/2022 COMPR EHENS IESHA METAB OLIC PANEL total protein 6.9 g/dL 6.3-8. 2 Not Available [facility] (Lab) [address] [place], [address], 07/07/2022 14:23:55 07/08/19 23 07/07/2022 COMPR EHENS IESHA METAB OLIC PANEL albumin 3.8 g/dL 3.4-5. 0 Not Available [facility] (Lab) [address] [place], [address], 07/07/2022 14:23:55 07/08/19 23 07/07/2022 COMPR EHENS IESHA METAB OLIC PANEL globulin 3.1 g/dL 2.6-4. 2 Not Available [facility] (Lab) [address] [place], [address], 07/07/2022 14:23:55 07/08/19 23 07/07/2022 COMPR EHENS IESHA METAB OLIC PANEL A/G ratio 1.2 ratio 1.0-2. 0 Not Available [facility] (Lab) [address] [place], [address], 07/07/2022 14:23:55 07/08/19 23 07/07/2022 LIPID PANEL cholesterol 184 mg/dL 140-19 9 NIH SURAJ NSUS RECOM MENDA TION FOR ESTEBAN STERO L: ADULT CHILD LOW RISK: <200 <170 BORDE RLINE : <200- 239 ----- HIGH RISK: >240 >200 Not Available [facility] (Lab) [address] [place], [address], 07/07/2022 14:23:59 07/08/1907/07/2022 LIPID PANEL triglyceride s 270 mg/dL 0-150 high NIH SURAJ NSUS REPOR T RECOM MENDA TION FOR TRIGL YCERI LLUVIA: ADULT CHILD LOW RISK: <150 ----- BODER LINE: 150-1 99 ----- HIGH RISK: >200 ----- Not Available [facility] (Lab) [address] [place], [address], 07/07/2022 14:23:59 07/08/1907/07/2022 LIPID PANEL HDL cholesterol 38 mg/dL 40- low Not Available [facility] (Lab) [address] [place], [address], 07/07/2022 14:23:59 07/08/1907/07/2022 LIPID PANEL LDL cholesterol, calculated 92 mg/dL 0-130 NIH SURAJ NSUS REPOR T RECOM MENDA TIONS FOR LDL: ADULT CHILD LOW RISK <130 <110 (OPTI MAL LDL) <100 ----- BORDE RLINE : 130-1 59 ----- HIGH RISK: >160 >130 A TRIGL YCERI DE RESUL T >400 INVAL IDATE S THE CALCU LATIO N FOR LDL FRACT IONAT ION - THE LDL RESUL T WILL NOT BE REPOR ADRYAN. Not Available [facility] (Lab) [address] [place], [address], 07/07/2022 14:23:59 07/08/19 23 07/07/2022 T3 FREE free T3 3.1 pg/mL 2.77-5 .27 Not Available [facility] (Lab) [address] [place], [address], 07/07/2022 14:45:41 07/08/19 23 07/07/2022 T4 FREE free T4 0.90 NG/dL 0.78-2 .19 Not Available [facility] (Lab) [address] [place], [address], 07/07/2022 14:45:47 07/08/19 23 07/07/2022 TSH thyroid-stim ulating hormone 2.160 uIU/m L 0.465- 4.680 Not Available [facility] (Lab) [address] [place], [address], 07/07/2022 14:47:33 07/08/19 23 07/07/2022 HEMOG LOBIN A1C HA1C 6.1 % 4.0-6. 0 high Diabe teresa Scree radha Crite aiden: <5.7% Consi stent with absen ce of diabe teresa 5.7-6 .4% Consi stent with incre ased risk for diabe teresa (pred iabet es) >OR=6 .5% Consi stent with diabe teresa REFER ENCE: Diabe teresa Care 2016, 39(Lee ppl.1 ):s13 -s22 Not Available [facility] (Lab) [address] [place], [address], 07/07/2022 15:03:47 07/08/19 23 07/08/2022 INSUL IN insulin 32.1 uIU/m L 2.6-24 .9 high Perfo rmed at: [facility] n [address] [facility], [place] [address] Lab Direc tor: Reginald aguilar PhD, Phone : [phone] Not Available [facility] (Lab) [address] [place], [address], 07/08/2022 10:13:25 03/04/20 23 03/04/2023 CBC/C OMPLE TE BLD COUNT W/DIF F white blood cells 8.3 x10'3 /uL 4.2-10 .8 Not Available [facility] (Lab) [address] [place], [address], 03/04/2023 12:14:45 03/04/20 23 03/04/2023 CBC/C OMPLE TE BLD COUNT W/DIF F red blood cells 4.61 x10'6 /uL 3.80-5 .20 Not Available [facility] (Lab) [address] [place], [address], 03/04/2023 12:14:45 03/04/20 23 03/04/2023 CBC/C OMPLE TE BLD COUNT W/DIF F hemoglobin 13.1 g/dL 12.0-1 5.6 Not Available [facility] (Lab) [address] [place], [address], 03/04/2023 12:14:45 03/04/20 23 03/04/2023 CBC/C OMPLE TE BLD COUNT W/DIF F hematocrit 40.3 % 35.7-4 5.7 Not Available [facility] (Lab) [address] [place], [address], 03/04/2023 12:14:45 03/04/20 23 03/04/2023 CBC/C OMPLE TE BLD COUNT W/DIF F mean red cell volume 87.4 fL 82.0-9 9.0 Not Available [facility] (Lab) [address] [place], [address], 03/04/2023 12:14:45 03/04/2003/04/2023 CBC/C OMPLE TE BLD COUNT W/DIF F mean red cell hemoglobin 28.4 pg 27.0-3 3.0 Not Available [facility] (Lab) [address] [place], [address], 03/04/2023 12:14:45 03/04/20 23 03/04/2023 CBC/C OMPLE TE BLD COUNT W/DIF F mean RBC HGB concentratio n 32.5 g/dL 31.0-3 6.0 Not Available [facility] (Lab) [address] [place], [address], 03/04/2023 12:14:45 03/04/20 23 03/04/2023 CBC/C OMPLE TE BLD COUNT W/DIF F red cell distribution width 14.4 % 11.8-1 5.5 Not Available [facility] (Lab) [address] [place], [address], 03/04/2023 12:14:45 03/04/20 23 03/04/2023 CBC/C OMPLE TE BLD COUNT W/DIF F platelets 234 x10'3 /uL 150-40 0 Not Available [facility] (Lab) [address] [place], [address], 03/04/2023 12:14:45 03/04/20 23 03/04/2023 CBC/C OMPLE TE BLD COUNT W/DIF F mean platelet volume 10.5 fL 9.0-12 .4 Not Available [facility] (Lab) [address] [place], [address], 03/04/2023 12:14:45 03/04/20 23 03/04/2023 CBC/C OMPLE TE BLD COUNT W/DIF F neutrophils 57.7 % 39.0-7 2.0 Not Available [facility] (Lab) [address] [place], [address], 03/04/2023 12:14:45 03/04/20 23 03/04/2023 CBC/C OMPLE TE BLD COUNT W/DIF F lymphocytes 30.8 % 16.0-4 7.0 Not Available [facility] (Lab) [address] [place], [address], 03/04/2023 12:14:45 03/04/20 23 03/04/2023 CBC/C OMPLE TE BLD COUNT W/DIF F monocytes 8.3 % 5.0-12 .0 Not Available [facility] (Lab) [address] [place], [address], 03/04/2023 12:14:45 03/04/2003/04/2023 CBC/C OMPLE TE BLD COUNT W/DIF F eosinophils 2.0 % 1.0-7. 0 Not Available [facility] (Lab) [address] [place], [address], 03/04/2023 12:14:45 03/04/2003/04/2023 CBC/C OMPLE TE BLD COUNT W/DIF F basophils 0.7 % 0.0-2. 0 Not Available [facility] (Lab) [address] [place], [address], 03/04/2023 12:14:45 03/04/20 23 03/04/2023 CBC/C OMPLE TE BLD COUNT W/DIF F immature granulocytes 0.5 % 0.00-0 .50 Not Available [facility] (Lab) [address] [place], [address], 03/04/2023 12:14:45 03/04/20 23 03/04/2023 CBC/C OMPLE TE BLD COUNT W/DIF F neutrophils, absolute count 4.79 x10'3 /uL 1.5-8. 0 Not Available [facility] (Lab) [address] [facility] [place], [address], 03/04/2023 12:14:45 03/04/20 23 03/04/2023 CBC/C OMPLE TE BLD COUNT W/DIF F lymphocytes, absolute count 2.56 x10'3 /uL 1.07-3 .43 Not Available [facility] (Lab) [address] [place], [address], 03/04/2023 12:14:45 03/04/2003/04/2023 CBC/C OMPLE TE BLD COUNT W/DIF F monocytes, absolute count 0.69 x10'3 /uL 0.29-0 .99 Not Available [facility] (Lab) [address] [place], [address], 03/04/2023 12:14:45 03/04/2003/04/2023 CBC/C OMPLE TE BLD COUNT W/DIF F eosinophils, absolute count 0.17 x10'3 /uL 0.02-0 .53 Not Available [facility] (Lab) [address] [place], [address], 03/04/2023 12:14:45 03/04/2003/04/2023 CBC/C OMPLE TE BLD COUNT W/DIF F basophils, absolute count 0.06 x10'3 /uL 0.01-0 .08 Not Available [facility] (Lab) [address] [place], [address], 03/04/2023 12:14:45 03/04/2003/04/2023 CBC/C OMPLE TE BLD COUNT W/DIF F immature granulocytes ,absolute 0.04 x10'3 /uL 0.00-0 .05 Not Available [facility] (Lab) [address] [place], [address], 03/04/2023 12:14:45 03/04/20 23 03/04/2023 CBC/C OMPLE TE BLD COUNT W/DIF F nucleated red blood cells 0.0 % -0 Not Available [facility] (Lab) [address] [place], [address], 03/04/2023 12:14:45 03/04/20 23 03/04/2023 CBC/C OMPLE TE BLD COUNT W/DIF F NRBC# 0.00 x10'3 /uL Not Available [facility] (Lab) [address] [place], [address], 03/04/2023 12:14:45 03/04/20 23 03/04/2023 MICRO ALBUM N RNDM W/CRE AT RATIO ur creat 36.01 mg/dL REFER ENCE RANGE NOT ESTAB LISHE D FOR RANDO M URINE CREAT ININE Not Available [facility] (Lab) [address] [place], [address], 03/04/2023 13:22:00 03/04/20 23 03/04/2023 MICRO ALBUM N RNDM W/CRE AT RATIO microalbumin , urine <6.0 mg/L 0.0-16 .6 Not Available [facility] (Lab) [address] [place], [address], 03/04/2023 13:22:00 03/04/20 23 03/04/2023 COMPR EHENS IESHA METAB OLIC PANEL sodium 137 mmol/ L 137-14 5 Not Available [facility] (Lab) [address] [place], [address], 03/04/2023 13:30:10 03/04/20 23 03/04/2023 COMPR EHENS IESHA METAB OLIC PANEL potassium 4.0 mmol/ L 3.5-5. 1 Not Available [facility] (Lab) [address] [place], [address], 03/04/2023 13:30:10 03/04/20 23 03/04/2023 COMPR EHENS IESHA METAB OLIC PANEL chloride 103 mmol/ L 98-107 Not Available [facility] (Lab) [address] [place], [address], 03/04/2023 13:30:10 03/04/20 23 03/04/2023 COMPR EHENS IESHA METAB OLIC PANEL carbon dioxide 26 mmol/ L 22-30 Not Available [facility] (Lab) [address] [place], [address], 03/04/2023 13:30:10 03/04/20 23 03/04/2023 COMPR EHENS IESHA METAB OLIC PANEL anion gap 12.0 mmol/ L 14-22 low Not Available [facility] (Lab) [address] [place], [address], 03/04/2023 13:30:10 03/04/20 23 03/04/2023 COMPR EHENS IESHA METAB OLIC PANEL glucose 101 mg/dL 70-99 high Not Available [facility] (Lab) [address] [place], [address], 03/04/2023 13:30:10 03/04/20 23 03/04/2023 COMPR EHENS IESHA METAB OLIC PANEL BUN 10 mg/dL 8-19 Not Available [facility] (Lab) [address] [place], [address], 03/04/2023 13:30:10 03/04/20 23 03/04/2023 COMPR EHENS IESHA METAB OLIC PANEL creatinine 0.79 mg/dL 0.66-1 .25 Not Available [facility] (Lab) [address] [place], [address], 03/04/2023 13:30:10 03/04/20 23 03/04/2023 COMPR EHENS IESHA METAB OLIC PANEL GFR >60 Refer ence Range : [place] ge GFR Healt hy Adult : >60 mL/mi n/1.7 3 m2 Chron ic Kidne y Disea se: 15-60 mL/mi n/1.7 3 m2 Kidne y Failu re: <15/m L/min /1.73 m2 www.n iddk. nih.g ov The MDRD study equat ion has not been valid ated in child pao <18 years of age; pregn ant women ; the elder ly >85 years of age; or in some racia l or ethni c subgr oups, such as Hispa nics. Outsi de the valid ated richie eters , estim ated GFR is less accur ate, requi ring clini aisha judgm ent on a case- by-ca se basis . Clini aisha inter preta tion for other races and ages must be made by the clini desiree. The MDRD study equat ion has not been valid ated for the evalu ation of serum creat inine relat ed to nutri di l statu s or medic ation usage . For perso ns <18 years of age, a pedia tric GFR calcu lator is avail able on the [facility] websi te: https ://rosalva w.awais elizabeth.o rg/pr ofess ional s/kdo qi/gf r_cal culat or Not Available [facility] (Lab) [address] [place], [address], 03/04/2023 13:30:10 03/04/20 23 03/04/2023 COMPR EHENS IESHA METAB OLIC PANEL alkaline phosphatase 59 U/L 38-126 Not Available [facility] (Lab) [address] [place], [address], 03/04/2023 13:30:10 03/04/20 23 03/04/2023 COMPR EHENS IESHA METAB OLIC PANEL alanine aminotransfe rase 27 U/L 0-35 Not Available [facility] (Lab) [address] [place], [address], 03/04/2023 13:30:10 03/04/20 23 03/04/2023 COMPR EHENS IESHA METAB OLIC PANEL aspartate aminotransfe rase 36 U/L 15-37 Not Available [facility] (Lab) [address] [place], [address], 03/04/2023 13:30:10 03/04/20 23 03/04/2023 COMPR EHENS IESHA METAB OLIC PANEL bilirubin, total 0.50 mg/dL 0.20-1 .30 Not Available [facility] (Lab) [address] [place], [address], 03/04/2023 13:30:10 03/04/20 23 03/04/2023 COMPR EHENS IESHA METAB OLIC PANEL calcium 9.2 mg/dL 8.4-10 .2 Not Available [facility] (Lab) [address] [place], [address], 03/04/2023 13:30:10 03/04/20 23 03/04/2023 COMPR EHENS IESHA METAB OLIC PANEL total protein 7.6 g/dL 6.3-8. 2 Not Available [facility] (Lab) [address] [place], [address], 03/04/2023 13:30:10 03/04/20 23 03/04/2023 COMPR EHENS IESHA METAB OLIC PANEL albumin 4.0 g/dL 3.4-5. 0 Not Available [facility] (Lab) [address] [place], [address], 03/04/2023 13:30:10 03/04/20 23 03/04/2023 COMPR EHENS IESHA METAB OLIC PANEL globulin 3.6 g/dL 2.6-4. 2 Not Available [facility] (Lab) [address] [place], [address], 03/04/2023 13:30:10 03/04/20 23 03/04/2023 COMPR EHENS IESHA METAB OLIC PANEL A/G ratio 1.1 ratio 1.0-2. 0 Not Available [facility] (Lab) [address] [place], [address], 03/04/2023 13:30:10 03/04/20 23 03/04/2023 LIPID PANEL cholesterol 200 mg/dL 140-19 9 high NIH SURAJ NSUS RECOM MENDA TION FOR ESTEBAN STERO L: ADULT CHILD LOW RISK: <200 <170 BORDE RLINE : <200- 239 ----- HIGH RISK: >240 >200 Not Available [facility] (Lab) [address] [place], [address], 03/04/2023 13:30:17 03/04/20 23 03/04/2023 LIPID PANEL triglyceride s 258 mg/dL 0-150 high NIH SURAJ NSUS REPOR T RECOM MENDA TION FOR TRIGL YCERI LLUVIA: ADULT CHILD LOW RISK: <150 ----- BODER LINE: 150-1 99 ----- HIGH RISK: >200 ----- Not Available [facility] (Lab) [address] [place], [address], 03/04/2023 13:30:17 03/04/20 23 03/04/2023 LIPID PANEL HDL cholesterol 33 mg/dL 40- low Not Available [facility] (Lab) [address] [place], [address], 03/04/2023 13:30:17 03/04/20 23 03/04/2023 LIPID PANEL LDL cholesterol, calculated 115 mg/dL 0-130 NIH SURAJ NSUS REPOR T RECOM MENDA TIONS FOR LDL: ADULT CHILD LOW RISK <130 <110 (OPTI MAL LDL) <100 ----- BORDE RLINE : 130-1 59 ----- HIGH RISK: >160 >130 A TRIGL YCERI DE RESUL T >400 INVAL IDATE S THE CALCU LATIO N FOR LDL FRACT IONAT ION - THE LDL RESUL T WILL NOT BE REPOR ADRYAN. Not Available [facility] (Lab) [address] [place], [address], 03/04/2023 13:30:17 03/04/20 23 03/04/2023 HEMOG LOBIN A1C HA1C 5.5 % 4.0-6. 0 Diabe teresa Carlinee radha Crite aiden: <5.7% Consi stent with absen ce of diabe teresa 5.7-6 .4% Consi stent with incre ased risk for diabe teresa (pred iabet es) >OR=6 .5% Consi stent with diabe teresa REFER ENCE: Diabe teresa Care 2016, 39( ppl.1 ):s13 -s22 Not Available [facility] (Lab) [address] [place], [address], 03/04/2023 13:33:04 03/04/20 23 03/04/2023 T4 FREE free T4 1.09 NG/dL 0.78-2 .19 Not Available [facility] (Lab) [address] [place], [address], 03/04/2023 13:51:50 03/04/20 23 03/04/2023 TSH thyroid-stim ulating hormone 0.392 uIU/m L 0.465- 4.680 low Not Available [facility] (Lab) [address] [place], [address], 03/04/2023 13:55:05 01/18/20 24 01/18/2024 CBC/C OMPLE TE BLD COUNT W/DIF F white blood cells 8.6 x10'3 /uL 4.2-10 .8 Not Available [facility] (Lab) [address] [place], [address], 01/18/2024 11:40:46 01/18/20 24 01/18/2024 CBC/C OMPLE TE BLD COUNT W/DIF F red blood cells 4.48 x10'6 /uL 3.80-5 .20 Not Available [facility] (Lab) [address] [place], [address], 01/18/2024 11:40:46 01/18/20 24 01/18/2024 CBC/C OMPLE TE BLD COUNT W/DIF F hemoglobin 12.7 g/dL 12.0-1 5.6 Not Available [facility] (Lab) [address] [place], [address], 01/18/2024 11:40:46 01/18/20 24 01/18/2024 CBC/C OMPLE TE BLD COUNT W/DIF F hematocrit 39.9 % 35.7-4 5.7 Not Available [facility] (Lab) [address] [place], [address], 01/18/2024 11:40:46 01/18/20 24 01/18/2024 CBC/C OMPLE TE BLD COUNT W/DIF F mean red cell volume 89.1 fL 82.0-9 9.0 Not Available [facility] (Lab) [address] [place], [address], 01/18/2024 11:40:46 01/18/20 24 01/18/2024 CBC/C OMPLE TE BLD COUNT W/DIF F mean red cell hemoglobin 28.3 pg 27.0-3 3.0 Not Available [facility] (Lab) [address] [place], [address], 01/18/2024 11:40:46 01/18/20 24 01/18/2024 CBC/C OMPLE TE BLD COUNT W/DIF F mean RBC HGB concentratio n 31.8 g/dL 31.0-3 6.0 Not Available [facility] (Lab) [address] [place], [address], 01/18/2024 11:40:46 01/18/20 24 01/18/2024 CBC/C OMPLE TE BLD COUNT W/DIF F red cell distribution width 14.5 % 11.8-1 5.5 Not Available [facility] (Lab) [address] [place], [address], 01/18/2024 11:40:46 01/18/20 24 01/18/2024 CBC/C OMPLE TE BLD COUNT W/DIF F platelets 239 x10'3 /uL 150-40 0 Not Available [facility] (Lab) [address] [place], [address], 01/18/2024 11:40:46 01/18/20 24 01/18/2024 CBC/C OMPLE TE BLD COUNT W/DIF F mean platelet volume 10.7 fL 9.0-12 .4 Not Available [facility] (Lab) [address] [place], [address], 01/18/2024 11:40:46 01/18/20 24 01/18/2024 CBC/C OMPLE TE BLD COUNT W/DIF F neutrophils 52.8 % 39.0-7 2.0 Not Available [facility] (Lab) [address] [place], [address], 01/18/2024 11:40:46 01/18/20 24 01/18/2024 CBC/C OMPLE TE BLD COUNT W/DIF F lymphocytes 35.9 % 16.0-4 7.0 Not Available [facility] (Lab) [address] [place], [address], 01/18/2024 11:40:46 01/18/20 24 01/18/2024 CBC/C OMPLE TE BLD COUNT W/DIF F monocytes 8.1 % 5.0-12 .0 Not Available [facility] (Lab) [address] [place], [address], 01/18/2024 11:40:46 01/18/20 24 01/18/2024 CBC/C OMPLE TE BLD COUNT W/DIF F eosinophils 2.1 % 1.0-7. 0 Not Available [facility] (Lab) [address] [place], [address], 01/18/2024 11:40:46 01/18/20 24 01/18/2024 CBC/C OMPLE TE BLD COUNT W/DIF F basophils 0.7 % 0.0-2. 0 Not Available [facility] (Lab) [address] [place], [address], 01/18/2024 11:40:46 01/18/20 24 01/18/2024 CBC/C OMPLE TE BLD COUNT W/DIF F immature granulocytes 0.4 % 0.00-0 .50 Not Available [facility] (Lab) [address] [place], [address], 01/18/2024 11:40:46 01/18/20 24 01/18/2024 CBC/C OMPLE TE BLD COUNT W/DIF F neutrophils, absolute count 4.53 x10'3 /uL 1.5-8. 0 Not Available [facility] (Lab) [address] [place], [address], 01/18/2024 11:40:46 01/18/20 24 01/18/2024 CBC/C OMPLE TE BLD COUNT W/DIF F lymphocytes, absolute count 3.08 x10'3 /uL 1.07-3 .43 Not Available [facility] (Lab) [address] [place], [address], 01/18/2024 11:40:46 01/18/20 24 01/18/2024 CBC/C OMPLE TE BLD COUNT W/DIF F monocytes, absolute count 0.69 x10'3 /uL 0.29-0 .99 Not Available [facility] (Lab) [address] [place], [address], 01/18/2024 11:40:46 01/18/20 24 01/18/2024 CBC/C OMPLE TE BLD COUNT W/DIF F eosinophils, absolute count 0.18 x10'3 /uL 0.02-0 .53 Not Available [facility] (Lab) [address] [place], [address], 01/18/2024 11:40:46 01/18/20 24 01/18/2024 CBC/C OMPLE TE BLD COUNT W/DIF F basophils, absolute count 0.06 x10'3 /uL 0.01-0 .08 Not Available [facility] (Lab) [address] [place], [address], 01/18/2024 11:40:46 01/18/20 24 01/18/2024 CBC/C OMPLE TE BLD COUNT W/DIF F immature granulocytes ,absolute 0.03 x10'3 /uL 0.00-0 .05 Not Available [facility] (Lab) [address] [place], [address], 01/18/2024 11:40:46 01/18/20 24 01/18/2024 CBC/C OMPLE TE BLD COUNT W/DIF F nucleated red blood cells 0.0 % -0 Not Available [facility] (Lab) [address] [place], [address], 01/18/2024 11:40:46 01/18/20 24 01/18/2024 CBC/C OMPLE TE BLD COUNT W/DIF F NRBC# 0.00 x10'3 /uL Not Available [facility] (Lab) [address] [place], [address], 01/18/2024 11:40:46 01/18/20 24 01/18/2024 LIPID PANEL cholesterol 196 mg/dL 140-19 9 NIH SURAJ NSUS RECOM MENDA TION FOR ESTEBAN STERO L: ADULT CHILD LOW RISK: <200 <170 BORDE RLINE : <200- 239 ----- HIGH RISK: >240 >200 Not Available [facility] (Lab) [address] [place], [address], 01/18/2024 12:03:33 01/18/20 24 01/18/2024 LIPID PANEL triglyceride s 218 mg/dL 0-150 high NIH SURAJ NSUS REPOR T RECOM MENDA TION FOR TRIGL YCERI LLUVIA: ADULT CHILD LOW RISK: <150 ----- BODER LINE: 150-1 99 ----- HIGH RISK: >200 ----- Not Available [facility] (Lab) [address] [place], [address], 01/18/2024 12:03:33 01/18/20 24 01/18/2024 LIPID PANEL HDL cholesterol 41 mg/dL 40- Not Available [facility] (Lab) [address] [place], [address], 01/18/2024 12:03:33 01/18/20 24 01/18/2024 LIPID PANEL LDL cholesterol, calculated 111 mg/dL 0-130 NIH SURAJ NSUS REPOR T RECOM MENDA TIONS FOR LDL: ADULT CHILD LOW RISK <130 <110 (OPTI MAL LDL) <100 ----- BORDE RLINE : 130-1 59 ----- HIGH RISK: >160 >130 A TRIGL YCERI DE RESUL T >400 INVAL IDATE S THE CALCU LATIO N FOR LDL FRACT IONAT ION - THE LDL RESUL T WILL NOT BE REPOR ADRYAN. Not Available [facility] (Lab) [address] [place], [address], 01/18/2024 12:03:33 01/18/20 24 01/18/2024 COMPR EHENS IESHA METAB OLIC PANEL sodium 133 mmol/ L 137-14 5 low Not Available [facility] (Lab) [address] [place], [address], 01/18/2024 12:03:40 01/18/20 24 01/18/2024 COMPR EHENS IESHA METAB OLIC PANEL potassium 4.4 mmol/ L 3.5-5. 1 Not Available [facility] (Lab) [address] [place], [address], 01/18/2024 12:03:40 01/18/20 24 01/18/2024 COMPR EHENS IESHA METAB OLIC PANEL chloride 101 mmol/ L 98-107 Not Available [facility] (Lab) [address] [facility] [place], [address], 01/18/2024 12:03:40 01/18/20 24 01/18/2024 COMPR EHENS IESHA METAB OLIC PANEL carbon dioxide 26 mmol/ L 22-30 Not Available [facility] (Lab) [address] [place], [address], 01/18/2024 12:03:40 01/18/20 24 01/18/2024 COMPR EHENS IESHA METAB OLIC PANEL anion gap 10.4 mmol/ L 14-22 low Not Available [facility] (Lab) [address] [place], [address], 01/18/2024 12:03:40 01/18/20 24 01/18/2024 COMPR EHENS IESHA METAB OLIC PANEL glucose 91 mg/dL 70-99 Not Available [facility] (Lab) [address] [place], [address], 01/18/2024 12:03:40 01/18/20 24 01/18/2024 COMPR EHENS IESHA METAB OLIC PANEL BUN 15 mg/dL 8-19 Not Available [facility] (Lab) [address] [place], [address], 01/18/2024 12:03:40 01/18/20 24 01/18/2024 COMPR EHENS IESHA METAB OLIC PANEL creatinine 0.96 mg/dL 0.66-1 .25 Not Available [facility] (Lab) [address] [place], [address], 01/18/2024 12:03:40 01/18/20 24 01/18/2024 COMPR EHENS IESHA METAB OLIC PANEL GFR >60 Refer ence Range : [place] ge GFR Healt hy Adult : >60 mL/mi n/1.7 3 m2 Chron ic Kidne y Disea se: 15-60 mL/mi n/1.7 3 m2 Kidne y Failu re: <15/m L/min /1.73 m2 www.n iddk. nih.g ov The MDRD study equat ion has not been valid ated in child pao <18 years of age; pregn ant women ; the elder ly >85 years of age; or in some racia l or ethni c subgr oups, such as Hispa nics. Outsi de the valid ated richie eters , estim ated GFR is less accur ate, requi ring clini aisha judgm ent on a case- by-ca se basis . Clini aisha inter preta tion for other races and ages must be made by the clini desiree. The MDRD study equat ion has not been valid ated for the evalu ation of serum creat inine relat ed to nutri di l statu s or medic ation usage . For perso ns <18 years of age, a pedia tric GFR calcu lator is avail able on the [facility] websi te: https ://rosalva snell.awais elizabeth.vanita gunderson/pr eveliaess ional s/kdo qi/gf r_cal culat or Not Available [facility] (Lab) [address] [place], [address], 01/18/2024 12:03:40 01/18/2001/18/2024 COMPR EHENS IESHA METAB OLIC PANEL alkaline phosphatase 59 U/L 38-126 Not Available [facility] (Lab) [address] [place], [address], 01/18/2024 12:03:40 01/18/2001/18/2024 COMPR EHENS IESHA METAB OLIC PANEL alanine aminotransfe rase 26 U/L 0-35 Not Available [facility] (Lab) [address] [place], [address], 01/18/2024 12:03:40 01/18/20 24 01/18/2024 COMPR EHENS IESHA METAB OLIC PANEL aspartate aminotransfe rase 25 U/L 15-37 Not Available [facility] (Lab) [address] [place], [address], 01/18/2024 12:03:40 01/18/20 24 01/18/2024 COMPR EHENS IESHA METAB OLIC PANEL bilirubin, total 0.60 mg/dL 0.20-1 .30 Not Available [facility] (Lab) [address] [place], [address], 01/18/2024 12:03:40 01/18/20 24 01/18/2024 COMPR EHENS IESHA METAB OLIC PANEL calcium 8.9 mg/dL 8.4-10 .2 Not Available [facility] (Lab) [address] [place], [address], 01/18/2024 12:03:40 01/18/20 24 01/18/2024 COMPR EHENS IESHA METAB OLIC PANEL total protein 7.1 g/dL 6.3-8. 2 Not Available [facility] (Lab) [address] [place], [address], 01/18/2024 12:03:40 01/18/20 24 01/18/2024 COMPR EHENS IESHA METAB OLIC PANEL albumin 3.9 g/dL 3.4-5. 0 Not Available [facility] (Lab) [address] [place], [address], 01/18/2024 12:03:40 01/18/20 24 01/18/2024 COMPR EHENS IESHA METAB OLIC PANEL globulin 3.2 g/dL 2.6-4. 2 Not Available [facility] (Lab) [address] [place], [address], 01/18/2024 12:03:40 01/18/20 24 01/18/2024 COMPR EHENS IESHA METAB OLIC PANEL A/G ratio 1.2 ratio 1.0-2. 0 Not Available [facility] (Lab) [address] [place], [address], 01/18/2024 12:03:40 01/18/20 24 01/18/2024 T4 FREE free T4 1.18 NG/dL 0.78-2 .19 Not Available [facility] (Lab) [address] [place], [address], 01/18/2024 12:21:42 01/18/20 24 01/18/2024 TSH thyroid-stim ulating hormone 0.412 uIU/m L 0.465- 4.680 low Not Available [facility] (Lab) [address] [place], [address], 01/18/2024 12:34:36 01/18/20 24 01/18/2024 HEMOG LOBIN A1C HA1C 5.2 % 4.0-6. 0 Diabe teresa Scree radha Crite aiden: <5.7% Consi stent with absen ce of diabe teresa 5.7-6 .4% Consi stent with incre ased risk for diabe teresa (pred iabet es) >OR=6 .5% Consi stent with diabe teresa REFER ENCE: Diabe teresa Care 2016, 39(Lee ppl.1 ):s13 -s22 Not Available [facility] (Lab) [address] [place], [address], 01/18/2024 15:18:26 09/19/19 23 09/18/2022 XR, wrist , 3 or more view [facility] [address] [place] [address] Patien t Name: ALICE VAZQUEZ Access ion #: [id number] Sex: F : 1970 6 Locati on: RAD Attend ing Physic johnny: SUMAN PARKER CE Orderi ng Physic johnny: SUMAN PARKER CE Exam Date: 09/19/19 2:27 PM Exam Name: XR WRIST LT 3V+ Admitt ing Diagno sis(es ): RADIOL OGY REPORT - FINAL EXAM: XR WRIST LT 3V+ HISTOR Y: PAIN LT WRIST COMPAR CARLOS: None. TECHNI QUE: AP, latera l, obliqu e, and navicu lar views. FINDIN GS: Examin ation of the left wrist demons trates normal alignm ent of the radioc arpal and carpom etacar pal joints . There is no radiog raphic eviden ce of opaque foreig n body, a erosiv e proces s, fractu re, destru ctive proces s or signif icant arthri tic change s. IMPRES LORI: Page 1 of 2 [facility] Name: ALICE VAZQUEZ Access ion #: [id number] Sex: F : 1970 6 Exam Date: 09/19/19 2:27 PM Exam Name: XR WRIST LT 3V+ Admitt ing Diagno sis(es ): No radiog raphic eviden ce of bone or joint diseas e of the left wrist. Create d and electr onical ly signed by: Jhonny paulson MD Signed Date: 09/19/19 3:15 PM (CT) Dictat ed by: Jhonny paulson MD (CT) (CT) Page [address] of [address] (Imaging) [address] [place], [address], 09/18/2022 17:02:14 Result Notes None recorded. Problems Name Problem SNOMED Code Status Onset Date Resolution Date Notes Provider Name and Address Organization Details Recorded Time Diabetes mellitus without complicati on 526588174 Active 2021 Not Available [facility] 3 16:19:26 Benign essential hypertensi on 2490846 Active Not Available [facility] 3 16:19:26 Irritable bowel syndrome with diarrhea 592713295 Active 2017 Not Available [facility] 3 16:19:26 Anxiety disorder 407609585 Active Not Available [facility] 3 16:19:26 Fco thyroiditi s 91452690 Active 2016 Not Available [facility] 3 16:19:26 Finding of body mass index 103608733 Active 2021 Not Available [facility] 3 16:19:26 Hypothyroi dism 58718149 Active 2019 Not Available [facility] 3 16:19:26 Obesity 097039868 Active 2021 Not Available [facility] 3 16:19:26 Nodular goiter 264462464 Active 2016 Not Available [facility] 3 16:19:26 Glossitis 67053250 Active 2020 Not Available [facility] 3 16:19:26 Hyperlipid emia 54522170 Active 2021 Not Available [facility] 3 16:19:26 Palpitatio ns 29025811 Active Not Available [facility] 3 16:19:26 Prediabete s 593583726 Active 2022 Not Available [facility] 3 16:19:26 Hypertrigl yceridemia 856016338 Active 2022 Not Available [facility] 3 16:19:26 Pain of left wrist 6802489622059 02 Active 2022 Sunita Burton CMA null, [facility] 3 12:06:25 Well controlled type 2 diabetes mellitus 398628855 Active 2022 Naila Reed MD [address], [place] [address], [place], [address] , [facility], [facility] 3 17:08:50 Mixed hyperlipid emia 438646808 Active 2022 Naila Reed MD [address], [address], [place], [address] , [facility], [facility] 3 17:10:04 Low back strain 133702159 Active 2022 King Parker MD [address], [facility] [address], [place], [address] , [facility] [place] [facility] 3 16:19:54 Gastroesop hageal reflux disease 726351263 Active 2023 King Parker MD [address], [facility] [address], [place], [address] , [facility] 4 15:22:49 Problem Notes Documentation Provider Name and Address Organization Details Recorded Time Endocrinology Note : [facility] ? ? [address], [facility] [id number] Jorge Alberto (id #[id number], : 1970) Documents sent via fax will include the following message: This fax may contain sensitive and confidential personal health information that is being sent for the sole use of the intended recipient. Unintended recipients are directed to securely destroy any materials received. You are hereby notified that the unauthorized disclosure or other unlawful use of this fax or any personal health information is prohibited. To the extent patient information contained in this fax is subject to 42 CFR Part 2, this regulation prohibits unauthorized disclosure of these records. If you received this fax in error, please visit [email or web address] to notify the sender and confirm that the information will be destroyed. If you do not have internet access, please call to notify the sender and confirm that the information will be destroyed. Thank you for your attention and cooperation. [ID:[id number]][facility] [address] [place] [address] , Date: 10/28/2022RE: Alice Vazquez, : 1970, PT ID #[id number] Parker MD, I would like to thank you for referring Alice Vazquez to our practice for consultation and evaluation of FU ON LABS Pt needs a refill on Metformin , on 10/28/2022. I have enclosed a copy of the office evaluation for your records. Once again, thank you for allowing me to participate in the care of this patient. Sincerely, Electronically Signed by: NAILA REED MD Encounter Reason/Date FU ON LABS Pt needs a refill on Metformin 10/28/2022 - 04:00PM - S_[facility] Dolores Alvarenga Problems:Reviewed Problems Nodular goiter - Onset: 05/29/2016 Hypothyroidism - Onset: 01/25/2020 Fco thyroiditis - Onset: 12/04/2016 Hypertriglyceridemia - Onset: 07/12/2022 Mixed hyperlipidemia - Onset: 10/28/2022 Hyperlipidemia - Onset: 01/15/2022 Obesity - Onset: 07/10/2021 Anxiety disorder Benign essential hypertension Glossitis - Onset: 01/15/2021 Irritable bowel syndrome with diarrhea - Onset: 12/03/2017 Palpitations Prediabetes - Onset: 07/12/2022 Finding of body mass index - Onset: 01/15/2022 Diabetes mellitus without complication - Onset: 01/15/2022 Pain of left wrist - Onset: 09/18/2022 Type 2 diabetes mellitus well controlled - Onset: 10/28/2022 Allergies: Reviewed Allergies NKDA Medications: Reviewed Medications NameDate Source Auvi-Q 0.3 mg/0.3 mL injection, auto-injectorUSE TODRKKYT67/27/22?filled MIGRATION.[id number] azelastine 137 mcg (0.1 %) nasal spray aerosolUSE 2 SPRAYS IN EACH NOSTRIL TWICE DAILY12/28/21?filled MIGRATION.[id number] lisinopriL 20 mg tabletTAKE 1 TABLET BY MOUTH EVERY DAY FOR HIGH BLOOD VAMPFXHF61/05/22?filled MIGRATION.[id number] metFORMIN ER 500 mg tablet,extended release 24 hrTAKE 1 TABLET BY MOUTH EVERY DAY AT OJKMTN54/11/23?prescribed Naila Reed MD metoprolol tartrate 25 mg tabletTAKE 1 TABLET BY MOUTH TWICE DAILY07/22/22?renewed King Parker MD Ozempic 0.25 mg or 0.5 mg (2 mg/1.5 mL) subcutaneous pen injectorINJECT 0.5 MG UNDER THE SKIN EVERY WEEK AT DBXNEC01/02/22?filled MIGRATION.[id number] Ozempic 1 mg/dose (4 mg/3 mL) subcutaneous pen injectorInject 1 mg every week by subcutaneous route at dinner for 90 days.10/28/22?prescribed Naila Reed MD sertraline 50 mg tabletTAKE 1 TABLET BY MOUTH EVERY DAY01/22/22?filled MIGRATION.[id number] Synthroid 75 mcg tabletTAKE 1 TABLET BY MOUTH EVERY DAY IN THE EXCWDNF93/22/23?renewed Naila Reed MD Vascepa 1 gram capsuleTake 2 capsule(s) twice a day by oral route before meals for 90 days.12/26/21?filled MIGRATION.5640915170 Vitamin D3 25 mcg (1,000 unit) tabletTake 1 tablet 3 times a week by oral route., start ?starte d MIGRATION.[id number] Centrum Silver OTC Family History: Father - Diabetes mellitus ?? - Malignant tumor of stomach Paternal Grandmother - Goiter Mother Living 68 years old Cholesterol Father Living 71 years old CVA and GB No brothers or sisters Social History:Substance UseDo you or have you ever smoked tobacco?: Never smokerWhich illicit or recreational drugs have you used?: noneHow much tobacco do you smoke?: NoneDo you or have you ever used e-cigarettes or vape?: Never used electronic cigarettesDo you or have you ever used smokeless tobacco?: Never used smokeless tobaccoHow much tobacco do you chew?: noneWhat is your level of alcohol consumption?: NoneWhat is your level of caffeine consumption?: ModeratePublic Health and TravelHave you recently traveled abroad?: NoIn the 14 days before symptom onset, have you had close contact with a laboratory-confirmed COVID-19 while that case was ill?: NoIn the 14 days before symptom onset, have you had close contact with a person who is under investigation for COVID-19 while that person was ill?: NoGender Identity and LGBTQ IdentityGender identity: Identifies as FemaleAssigned sex at : FemaleSOCIAL HISTORY: Does not smoke cigarettes. Drinking Hx: 2 Cups of tea per day, < 6 cans of soft drinks per day. 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 last seen in Dec at that time we continued synthroid 75 mcg daily. we added vascepa for high TG we continued metformin and added ozempic for glucose control-she is now taking 0.5 mg once weekly close to 9 months ago and tolerating well. She has no nausea or GI upset. She has lost 10 pounds since Dec and maintaining. labs from 07/10:insulin 32.1 uU/mlA1C 6.1%TSH of 2.160 uIU/mlFT4 of 0.9 ng/dLFT3 of 3.1 pg/mL184/270/38/92glucose 90 mg/dLCr normalLFT normalReview of Systems: Patient reports normal appetite, no significant weight change, exercise; how often? , and no decrease in height. She reports no double vision (diplopia), no trouble with peripheral vision, not bulging (proptosis), no dry eyes, and no gritty eyes. She reports no difficulty swallowing (dysphagia), no hoarseness, no voice changes, no deepening of the voice, no lump or swelling, and no throat/neck pain. She reports no widening of nose. She reports no chest pain, no racing heart rate, and controlled blood pressure. She reports no shortness of breath, no snoring, and no sleep apnea. She reports no urinary frequency, not getting up at night to use bathroom, and no history of kidney stones. She reports no abdominal pain, no diarrhea, no constipation, no heartburn, no rectal bleeding, and does not use antacids. She reports no muscle weakness, no muscle aches, no joint pain, no bone pain, and no bone fractures. She reports able to brush hair without difficulty and able to get out of chair independently. She reports no dry skin, no thin skin, no bruising tendency, no acne, no purple stretch samuel, no brittle nails, and no recurrent infections or slow healing wounds. She reports no low blood sugars, no excessive thirst (polydipsia), not tired all the time, no increased hair growth (on face, chest, etc.), no hair falling out, no trouble sleeping, no temperature intolerance to heat, no temperature intolerance to cold, no spells of headache, racing heart, and sweating ALL at the same time, no history of low potassium, no recent steroid use, and no increase in size of hands or feet. She reports complies with diabetic diet, eats milk, cheese, or yogurt daily, calcium supplement, takes multivitamin, and vitamin D supplement. She reports no headaches, no confusion, no dizziness, no lightheadedness, no numbness or tingling in hands or feet, no night sweats, no confusion during middle of night, no excessive sweating, hands don't shake, and no frequent falls while walking. She reports no anxiety and no depression. She reports no trouble conceiving, no low sex drive or libido, able to reach orgasm, no painful intercourse, no hot flashes, no erectile dysfunction, no leakage of milk from nipples, and no vaginal dryness. Physical ExamConstitutional:General Appearance: not anxious/nervous, no sweating, andoverweight. Level of Distress: no acute distress. Eyes:Lids and Conjunctivae: no discharge, pallor, lid lag, or periorbital edema and non-injected. Neck:Neck: supple, trachea midline, no masses, and full range of motion. Thyroid: no enlargement or nodules and non-tender. Neck vessels: no carotid bruits or thyroid bruits. Lymph Nodes: no anterior cervical LAD, posterior cervical LAD, submandibular LAD, submental LAD, preauricular LAD, or supraclavicular LAD. Cardiovascular:Apical Impulse: not displaced. Heart Auscultation: normal S1 and S2; no murmurs, rubs, or gallops; and regular rate and rhythm. Lungs:Auscultation: no wheezing, rales/crackles, or rhonchi and breath sounds normal, good air movement, and clear to auscultation. Psychiatric:Mental Status: normal mood and affect, no diffuse anxiety or paranoid ideations, and active and alert.Procedure DocumentationNone recordedAssessment/Plan1. Type 2 diabetes mellitus well controlled-a1c of 6.1% in control- continue on metformin and ozempic 1 mg once weekly for continued glucose control. Discussed carb counting and how to read food labels. Recommended patient to utilize the diabetesPresentain.EMBI from the ADA website to help with food preparation as this presents ideal carb content per meal so this will make carb counting much easier for patient. Recommended she incorporate natural insulin sensitizers such as pears, apples, cinnamon, raúl and sweet potatoes to help mobilize her endogenous insulin. Recommended up to 150 minutes of moderate level activity/exercise weekly.E11.9: Type 2 diabetes mellitus without complications HEMOGLOBIN A1C MICROALBUMN RNDM W/CREAT RATIO COMP MET PANEL/LIVER Ozempic 1 mg/dose (4 mg/3 mL) subcutaneous pen injector - Inject 1 mg every week by subcutaneous route at dinner for 90 days. ? Qty: (3)?3 mL syringe ? Refills: 1 ? Pharmacy: [id number] metformin ER 500 mg tablet,extended release 24 hr - TAKE 1 TABLET BY MOUTH EVERY DAY AT DINNER ? Qty: (90)?tablet ? Refills: 1 ? Pharmacy: [facility] #[id number] 2. Hypothyroidism-Continue synthroid 75 mcg daily as thyroid levels in ideal control.E03.9: Hypothyroidism, unspecified TSH T4 FREE 3. Mixed hyperlipidemia-continue on vascepa for mixed dyslipidemia. Spent up to 25 minutes preparing to see the patient (eg, review of tests), obtaining and/or reviewing separately obtained history, performing a medically appropriate examination and evaluation, counseling and educating the patient, ordering medications, tests, along with documenting clinical information in the electronic health record, independently interpreting results and communicating results to the patient. RTC as needed.E78.2: Mixed hyperlipidemia LIPID PANEL Return to Office to see King Parker MD at [facility] Internal Med [address] on or around 01/16/2023 Sunita Burton CMA [facility], [place] - [facility] 10/29/2022 11:08:16 Procedures Surgical History None recorded. Imaging Results Imaging Date Name Status LastModified by Organiz [facility] Details LastModified Time 09/18/2022 XR, wrist, 3 or more view completed [id number] [facility] (Imaging) [address], [place], [address], 09/18/2022 17:02:14 Procedure Notes None recorded. Medical Equipment None Reported. Allergies No known drug allergies Medications Name Sig Start Date Stop Date Status Note LastModified by Organization Details LastModified Time amoxicillin 500 mg capsule Take 1 capsule 3 times a day by oral route for 10 days. 01/26 completed Not Available Not Available Not Available clotrimazol e 10 mg blas Take 1 tablet 4 times a day by oral route. active Not Available Not Available No t Available benzonatate 200 mg capsule Take 1 capsule 3 times a day by oral route. 01/26 completed Not Available Not Available Not Available lisinopril 20 mg tablet TAKE 1 TABLET BY MOUTH EVERY DAY FOR HIGH BLOOD PRESSURE active Not Available Not Available No t Available terconazole 0.8 % vaginal cream INSERT 1 APPLICATO RFUL VAGINALLY AT BEDTIME FOR 3 DAYS 01/08 completed Not Available Not Available Not Available Tessalon Perles 100 mg capsule Take 1 capsule 3 times a day by oral route. active Not Available Not Available No t Available Synthroid 25 mcg tablet TK 1 T PO QD IN THE MORNING active Not Available Not Available No t Available baclofen 10 mg tablet TAKE 1 TABLET BY MOUTH THREE TIMES DAILY active Not Available Not Available No t Available clotrimazol e-betametha sone 1 %-0.05 % topical cream active Not Available Not Available Not Available Synthroid 75 mcg tablet TAKE 1 TABLET BY MOUTH DAILY active Not Available Not Available No t Available Synthroid 50 mcg tablet TAKE 1 TABLET BY MOUTH EVERY DAY IN THE MORNING 07/25 completed Not Available Not Available Not Available hydrochloro thiazide 25 mg tablet one tablet mon, wed, fri 2013 active Not Available Not Available Not Avai lable Levaquin 500 mg tablet Take 1 tablet every 24 hours by oral route. 11/21 completed Not Available Not Available Not Available azelastine 137 mcg (0.1 %) nasal spray USE 2 SPRAYS NASALLY TWICE DAILY active Not Available Not Available No t Available methylpredn isolone 4 mg tablets in a dose pack FOLLOW PACKAGE DIRECTION S 07/21 completed Not Available Not Available Not Available Zoloft 100 mg tablet Take 1 tablet every day by oral route. 03/08 completed Not Available Not Available Not Available metformin ER 500 mg tablet,exte nded release 24 hr TAKE 1 TABLET BY MOUTH DAILY active Not Available Not Available No t Available sertraline 50 mg tablet TAKE 1 TABLET BY MOUTH EVERY DAY 2023 active Not Available Not Available Not Avai lable Vitamin D3 25 mcg (1,000 unit) tablet Take 1 tablet 3 times a week by oral route. 2017 active Not Available Not Available Not Avai lable rosuvastati n 20 mg tablet Take 1 tablet every day by oral route. active Not Available Not Available No t Available metoprolol tartrate 25 mg tablet Take 0.5 tablets twice a day by oral route. active Not Available Not Available No t Available lisinopril 10 mg take one tablet daily 2012 active Not Available Not Available Not Avai lable icosapent ethyl 1 gram capsule TAKE 2 CAPSULES BY MOUTH TWICE DAILY active Not Available Not Available No t Available Auvi-Q 0.3 mg/0.3 mL injection, auto-inject or INJECT NEEDED FOR SEVERE ALLERGIC REACTION INCLUDING ANAPHYLAX IS DIRECTED active Not Available Not Available No t Available Ozempic 0.25 mg or 0.5 mg (2 mg/1.5 mL) subcutaneou s pen injector INJECT 0.5 MG UNDER THE SKIN EVERY WEEK AT DINNER 01/21 completed Not Available Not Available Not Available Ozempic 1 mg/dose (4 mg/3 mL) subcutaneou s pen injector ADMINISTE R 1 MG UNDER THE SKIN WEEKLY active Not Available Not Available No t Available Ozempic 2 mg/dose (8 mg/3 mL) subcutaneou s pen injector ADMINISTE R 2 MG UNDER THE SKIN WEEKLY active Not Available Not Available No t Available Ozempic 0.25 mg or 0.5 mg (2 mg/3 mL) subcutaneou s pen injector INJECT 0.5 MG UNDER THE SKIN EVERY WEEK AT DINNER 01/21 completed Not Available Not Available Not Available Vitals Date Recorded Body height Body mass index (BMI) Body weight Body temperature Heart rate Oxygen saturation Oxygen saturation in Arterial blood by Pulse oximetry Systolic blood pressure Diastolic blood pressure Provider Name and Address Organization Details Last Updated DateTime 3 157.48 cm 40.2 kg/m2 71772.3 2 g 96.9 [degF] 87 /min 96 % 96 % 126 mm[Hg] 70 mm[Hg] Vee Williamson MA [facility] [employer] [facility] 3 15:56:11 Date Recorded Body height Body mass index (BMI) Body weight Body temperature Heart rate Systolic blood pressure Diastolic blood pressure Provider Name and Address Organization Details Last Updated DateTime 3 157.48 cm 40.3 kg/m2 826314. 48 g 97.9 [degF] 74 /min 148 mm[Hg] 71 mm[Hg] Pili Pisano [facility] [employer] [facility] 3 16:49:16 Date Recorded Body height Body mass index (BMI) Body weight Heart rate Body temperature Oxygen saturation Oxygen saturation in Arterial blood by Pulse oximetry Systolic blood pressure Diastolic blood pressure Provider Name and Address Organization Details Last Updated DateTime 3 157.48 cm 39.1 kg/m2 52276.7 7 g 80 /min 97 [degF] 96 % 96 % 120 mm[Hg] 78 mm[Hg] Mona Horaico [facility] [employer] [facility] 3 15:17:34 Date Recorded Body height Body mass index (BMI) Body weight Heart rate Body temperature Oxygen saturation Oxygen saturation in Arterial blood by Pulse oximetry Systolic blood pressure Diastolic blood pressure Provider Name and Address Organization Details Last Updated DateTime 4 157.48 cm 39.6 kg/m2 35933.7 5 g 86 /min 97 [degF] 92 % 92 % 122 mm[Hg] 84 mm[Hg] [facility] [employer] [facility] 4 15:23:30 Date Recorded Body height Body mass index (BMI) Body weight Heart rate Body temperature Oxygen saturation Oxygen saturation in Arterial blood by Pulse oximetry Systolic blood pressure Diastolic blood pressure Provider Name and Address Organization Details Last Updated DateTime 4 157.48 cm 39.5 kg/m2 04315.9 5 g 80 /min 97 [degF] 98 % 98 % 118 mm[Hg] 82 mm[Hg] Kamille Santillan Monik [facility] [employer] [facility] 4 14:58:25 Social History Question Answer Notes LastModified by Organizat ion Details LastModified Time Tobacco Smoking Status Never Smoker Not Available [facility] 06/18/2022 01:03:35 What Is Your Level Of Alcohol Consumption? None [id number] Information not available 06/18/2022 What Is Your Level Of Caffeine Consumption? Moderate [id number] Information not available 06/18/2022 How Much Tobacco Do You Chew? None [id number] Information not available 06/18/2022 In The 14 Days Before Symptom Onset, Have You Had Close Contact With A Laboratory-confir med COVID-19 While That Case Was Ill? No [id number] Information not available 06/18/2022 In The 14 Days Before Symptom Onset, Have You Had Close Contact With A Person Who Is Under Investigation For COVID-19 While That Person Was Ill? No [id number] Information not available 06/18/2022 Which Illicit Or Recreational Drugs Have You Used? None [id number] Information not available 06/18/2022 Do You Or Have You Ever Used E-cigarettes Or Vape? Never Used Electronic Cigarettes [id number] Information not available 06/18/2022 Do You Or Have You Ever Used Smokeless Tobacco? Never Used Smokeless Tobacco [id number] Information not available 06/18/2022 How Much Tobacco Do You Smoke? No [id number] Information not available 06/18/2022 Have You Recently Traveled Abroad? No [id number] Information not available 06/18/2022 Sex: Female Functional Status None recorded. Mental Status None recorded. Family History Relationship Description Onset Age of this Age Resolved Age Notes LastModified by Organization Details LastModified Time Father Diabetes mellitus [id number] Not available 06/18/2022 01:06:08 Father Malignant tumor of stomach [id number] Not available 06/18/2022 01:06:08 Paternal Grandmother Goiter [id number] Not available 06/18/2022 01:06:08 Notes:Mother Living 68 years old Cholesterol Father Living 71 years old CVA and GB No brothers or sisters Medical History Condition Response NERVE DISEASE N KIDNEY STONES N DIVERTICULITIS N BLADDER PROBLEMS N SLEEP APNEA N CHICKENPOX N OTHER # 1 N POLIO N PROSTATE N Other # 2 N EYE PROBLEMS Y EAR OR HEARING PROBLEMS N CHRONIC PAIN SYNDROME N MUMPS N HYPOTHYROIDISM Y CONSTIPATION N CAROTID BLOCKAGE N BOWEL PROBLEMS N BACK / NECK PROBLEMS N ATHEROSCLEROSIS N ULCERS N MEASLES N BREAST PROBLEMS N HYPOTENSION N DIALYSIS N MYOCARDIAL INFARCTION N ECZEMA N URINARY/BLADDER/KIDNEY PROBLEMS N CORONARY ARTERY DISEASE (CAD) N ADDICTION CONCERNS N Impotence N ENDOMETRIOSIS N APPENDICITIS N BAD TEETH N GASTROINTESTINAL DISORDER N ENT N PERIPHERAL VASCULAR DISEASE N HEARTBURN / REFLUX N MUSCLE,JOINT OR BONE PROBLEMS N GASTROINTESTINAL BLEEDING N AUTISM SPECTRUM DISORDER (ASD) N ASTHMA N CATARACTS N SLEEP DISORDER N Brain Problems N ERECTILE DYSFUNCTION N DEMENTIA N VARICOSITIES N VASCULAR DISEASE N PACEMAKER N Blood Disorder N INFERTILITY N CHEMOTHERAPY / RADIATION N MULTIPLE SCLEROSIS N MALE HYPOGONADISM N HYPERTENSION Y Deficiency N CARDIAC ARRHYTHMIA N ANXIETY DISORDER Y Gall Stones N CHRONIC EAR INFECTIONS N PULMONARY EMBOLISM N BRONCHITIS N FOOT PROBLEM N Gynecological HistoryNo gynecological history recorded. Obstetrics History GPAL:G 0 P 0 0 0 0 Immunizations Vaccine Type Date Status Note Provider Nam e and Address Organization Details Recorded Time Influenza, split virus, quadrivalent, PF 3 completed King Parker MD [address] [place] [address], [place], [address], [facility] [employer] 01/21/2023 16:48:37 SARS-COV-2 (COVID-19) vaccine, UNSPECIFIED 1 completed Not Available [facility] 08/24/2022 16:19:27 SARS-COV-2 (COVID-19) vaccine, UNSPECIFIED 1 completed Not Available [facility] 08/24/2022 16:19:27 SARS-COV-2 (COVID-19) vaccine, UNSPECIFIED 1 completed Not Available [facility] 08/24/2022 16:19:27 Influenza, split virus, trivalent, preservative 3 completed Not Available [facility] 08/24/2022 16:19:27 Influenza, split virus, quadrivalent, PF 1 completed Not Available [facility] 08/24/2022 16:19:27 Influenza, split virus, quadrivalent, PF 0 completed Not Available [facility] 08/24/2022 16:19:27 Influenza, split virus, quadrivalent, preservative 7 completed Not Available [facility] 08/24/2022 16:19:27 Influenza, split virus, trivalent, PF 4 completed Sunita Burton, CINTHIA null, [place] [facility] 01/20/2024 15:44:08 Past Encounters Encounter ID Performer Location Encounter Start Date Encounter Closed Date Diagnosis/Indication Diagnosis SNOMED-CT Code Diagnosis ICD10 Code Diagnosis Note [id number] _ATHENA_M IGRATION_ DEFAULT_1 _1 , 06/28/2020 00:00:00 06/28/2020 11:00:54 [id number] [facility] [address] [address] 07/25/2020 00:00:00 07/25/2020 12:46:51 [id number] [facility] Endo Shaq Alvarenga [address] [place] [address] 01/08/2021 00:00:00 01/08/2021 15:33:18 [id number] [facility] Internal Med Abbe coronado [address] [facility] , [facility] [place] [address] 01/15/2021 00:00:00 01/15/2021 16:08:29 [id number] _ATHENA_M IGRATION_ DEFAULT_1 _1 , 06/20/2021 00:00:00 06/20/2021 10:02:53 [id number] [facility] Internal Med [facility] [address] [address] 07/10/2021 00:00:00 07/10/2021 11:49:36 [id number] _ATHENA_M IGRATION_ DEFAULT_1 _1 , 12/26/2021 00:00:00 12/26/2021 10:15:45 [id number] [facility] Internal Med [facility] [address] [place] [address] [address] 01/15/2022 00:00:00 01/15/2022 16:05:23 [id number] King Parker MD [facility] Internal Med [facility] [address] [address] 07/16/2022 15:55:49 07/16/2022 17:52:22 Benign essential hypertension 5655564 I10 Hyperlipidemia 43261598 E78.5 Diabetes zuri gomez without complication 392364902 E11.9 Anxiety disorder 4744376 06 F41.9 Obesity 482810670 E66.9 Hypothyroidism 04829894 E03.9 [id number] Naila Reed MD [facility] Endo [address] [place] [address] 10/28/2022 16:42:31 10/28/2022 17:33:28 Well controlled type 2 diabetes mellitus 238713777 E11.9 a1c of 6.1% in control- continue on metformin and ozempic 1 mg once weekly for continued glucose control. Discussed carb counting and how to read food labels. Recommende d patient to utilize the diabetesModiv Media.EMBI from the ADA website to help with food preparatio n as this presents ideal carb content per meal so this will make carb counting much easier for patient. Recommende d she incorporat e natural insulin roller structural mill s such as pears, apples, cinnamon, raúl and sweet potatoes to help mobilize her endogenous insulin. Recommende d up to 150 minutes of moderate level activity/e xercise weekly. Hypothyroidism 39711626 E03.9 Continue synthroid 75 mcg daily as thyroid levels in ideal control. Mixed hyperlipidemia 267 125004 E78.2 continue on vascepa for mixed dyslipidem ia. Spent up to 25 minutes preparing to see the patient (eg, review of tests), obtaining and/or reviewing separately obtained history, performing a medically appropriat e examinatio n and evaluation , counseling and educating the patient, ordering medication s, tests, along with documentin g clinical informatio n in the electronic health record, independen tly interpreti ng results and communicat ing results to the patient. RTC as needed. [id number] King Parker MD [facility] Internal Med [address] [facility], [address] [place] [address] 01/21/2023 14:41:22 01/21/2023 15:39:46 Administration of influenza vaccine 34908679 Z23 Adult heal th examination 032611095 Z00.00 Depression screening 171 532344 Z13.31 Diabetes m ellitus without complication 264962840 E11.9 Benign ess ential hypertension 3862325 I10 Mixed hyperlipidemia 267 884270 E78.2 [id number] King Parker MD [facility] [address] [address] 07/22/2023 14:52:30 07/22/2023 15:38:16 Hyperlipidemia 00680110 E78.5 Hypothyroidism 81749975 E03.9 Well contr olled type 2 diabetes mellitus 471982174 E11.9 Benign ess ential hypertension 5465683 I10 Anxiety disorder 0630945 06 F41.9 [id number] King Parker MD [facility] [address] [address] 01/20/2024 14:43:55 01/20/2024 15:30:08 Benign essential hypertension 2927210 I10 Hyperlipidemia 80841759 E78.5 Hypothyroidism 29271324 E03.9 Obesity 652764815 E66.9 Gastroesop hageal reflux disease 437054750 K21.9 Administra tion of influenza vaccine 33161617 Z23 Health Concerns Section Related Observation LastModified by Organization Detai ls LastModified Time None Recorded Concern Status LastModified by Organization Details LastModified Time None Recorded Advance Directives Directive None Recorded Payers Encounter Date Sequence Insurance Name Policy Number Policy Castellano Covered Member ID Castellano Member ID Guarantor Name 07/16/2022 1 [place]) [address] Alice L George [id number] Alice L George 10/28/2022 1 [place] 113 Alice L George [id number] Alice L George 01/21/2023 1 [place] 113 Alice L George [id number] Alice L George 07/22/2023 1 [place] 113 Alice L George [id number] Alice L George 01/20/2024 1 [place] 113 Alice L George [id number] Alice Oscarert Notes Date Note Type Note Provider Name and Address Organization Details Recorded Time 3 text/html Patient Name: Alice Vazquezte Of Service: Thursday ( 07.16.2022 ): 1970 Age: 52 There has been approximately a 9 lb weight loss since 01/15/2022. This represents approximately a 3.9% change in weight. Weight change attributable to lifestyle changes. Vital Signs:Blood Pressure: Sitting Rt. Arm 126/70Pulse: Sitting 87 /min and RegularRespirations: 12Height 62 in or 1.6 mWeight 220 lb or 99.8 kgBMI 40.2Temperature: 96 F or 35.6 CPulse Oximetry: 96 % at rest on no oxygen Chief Complaint: Addressed in HPI Problems or conditions discussed in the HPI were the only ones reviewed during the encounter.Only social and family history addressed in the HPI were reviewed during this encounter. Attendant(s): None Constitutional and Systemic Symptoms: none Medication Reconciliation: from medication list. History of Present Illness #1. Essential Hypertension: Stage: Stage I Interval Neurological Complaints no headaches, dizziness, weakness, visual changes, ataxia, aphasia and apraxia. No shortness of breath, orthopnea or cardiovascular symptoms. No other symptoms related to end organ damage. Pressure has been under fair control. Currently normal. No other end organ symptoms or findings. Therapy reviewed regarding management of hypertension and includes salt restriction and Lisinopril and Lopressor. #2. Type II Hypercholesterolaemia: Currently taking medication and tolerating well. No interval complaints of any muscle pain or arthralgia. No significant liver changes with medications. Last lipid panel: fair control. Therapy reviewed regarding treatment of cholesterol management and include diet and Rosuvastatin and Vascepa. #3. Type II Diabetes: Has had no polyuria polyphagia or polydipsia. Has had no hypoglycemic like responses. No new history of any numbness, tingling, weakness or visual problems. No nausea, anorexia or other constitutional symptoms. There has been no foot problems or non healing lesions. The last HAIC was DCCT HAIC: 6.1 Calculated MB mg%. Average blood sugars 100-115 mg%. Checking sugars : several times a week Medication Types Include: Metformin and GLP-1 Secondary complications include none. Macro-vascular complications include none. Therapy reviewed regarding diabetic management and include Glucophage and Wegovy Compliance: good Renal Protection: TASHA inhibitors Lipid management: statins Urinary microalbumin: A1 . Ophthalmological: has seen eye doctor within the last year #4. Anxiety Disorder: History of anxiety disorder. There has been no panic attacks. No interval complaints of any vegetative or other signs of depression. Taking Zoloft. Discussed possibility of decreasing and weaning off medication. Feels that current regimen is working fine and wishes not to change the current treatment regimen. Medication not causing any sedation or cognitive dysfunction and there is no contraindication to continue current therapy. #5. Hx of obesity. Currently mildly obese. Has tried numerous dietary support and supplements with no benefit. Instructed on the health consequences of the obese status particularly cancer diabetes and heart disease. Potential candidate for bariatric surgery: No. Wishes to be evaluated by Dietary: No and was offered to be evaluated by dietary.#6. History of hypothyroidism currently taking Synthroid 0.25 mg daily. Overall is doing well. Followed by Endocrinology.Medication List Reviewed and Reconciled 07/16/2022Lopressor 25 MG One BidZoloft 100 MG (TABLET - ORAL) One Daily For DepressionLisinopril 20 MG (TABLET - ORAL) One Daily For HtnVitamin D Three Times A WeekGlucophage 500 MG (TABLET - ORAL) One Tablet Every Day At BedtimeSynthroid 0.025 MG (TABLET - ORAL) QdRosuvastatin 10 MG TABLET One DailyWegovy .25 MG/.5ML INJECTION, SOLUTION Once WeeklyVascepa 1000 MG CAPSULE 4 DailyVaccination and Emjllckpllib5624-61 Covid Booster Yvavik4566-71 Covid Cgiiwf3724-02 Leetimwgu2092-68 Vxvw2820-02 Zostavax (shingles)Surgical HistoryThyroid BiopsyPreventative Testing Confirmed by Our Nmfeohg3107/07/2022 ALBUMIN 3.8 G/DL07/07/2022 HAIC 6.1 % 04/18/2022 MAMMOGRAM COLONOSCOPY ( 3 YEARS ) 04/15/2025Social HistorySOCIAL HISTORY:Does not smoke cigarettes. Drinking Hx: 2 Cups of tea perday, < 6 cans of soft drinks per day.Exercise: InfrequentlySexual Hx: Sexually ActiveOccupation: Office WorkerFamily HistoryFAMILY HISTORY:Mother Living 75 years old CholesterolFather 71 years old neuroendocrine cancer of stomach, CVA and GBNo brothers or sisters King Parker MD [address] [facility], [facility] [address], [place], [address], [employer] 07/16/2022 16:13:18 3 text/html 52 yo female comes in for follow up in management of well controlled type 2 DM (A1C of 6.1%), hypertriglyceridemia and hypothyroidism. last seen in Dec at that time we continued synthroid 75 mcg daily. we added vascepa for high TG we continued metformin and added ozempic for glucose control-she is now taking 0.5 mg once weekly close to 9 months ago and tolerating well. She has no nausea or GI upset. She has lost 10 pounds since Dec and . labs from 07/10:insulin 32.1 uU/mlA1C 6.1%TSH of 2.160 uIU/mlFT4 of 0.9 ng/dLFT3 of 3.1 pg/mL184/270/38/92glucose 90 mg/dLCr normalLFT normal Naila Reed MD [address], [facility] [address], [place], [address], [employer] 10/28/2022 22:09:04 3 text/html Patient Name: Alice Mckeon Of Service: Thursday ( 01.21.2023 ): 1970 Age: 52 There has been approximately a 6 lb weight loss since 07/16/2022. This represents approximately a 2.7% change in weight. Weight change attributable to lifestyle changes. Vital Signs:Blood Pressure: Sitting Rt. Arm 120/78Pulse: Sitting 80 /min and RegularRespiratory Rate: 12Height 62 in or 1.6 mWeight 214 lb or 97.1 kgBMI 39.1Temperature: 97 F or 36.1 CPulse Oximetry: 96 % at rest on no oxygen Chief Complaint: Addressed in HPI Problems or conditions discussed in the HPI were the only ones reviewed during the encounter.Only social and family history addressed in the HPI were reviewed during this encounter. Attendant(s): NoneConstitutional and Systemic Symptoms:none Medication Reconciliation: from medication list. History of Present Illness #1. Essential Hypertension: Stage: Stage I Interval Neurological Complaints no headaches, dizziness, weakness, visual changes, ataxia, aphasia and apraxia. No shortness of breath, orthopnea or cardiovascular symptoms. No other symptoms related to end organ damage. Pressure has been under excellent control. Currently normal. No other end organ symptoms or findings. Therapy reviewed regarding management of hypertension and includes salt restriction and Lisinopril and Lopressor. #2. Type I Hypercholesterolaemia: Currently taking medication and tolerating well. No interval complaints of any muscle pain or arthralgia. No significant liver changes with medications. Last lipid panel: fair control. Therapy reviewed regarding treatment of cholesterol management and include diet and Rosuvastatin. #3. Type II Diabetes: Has had no polyuria polyphagia or polydipsia. Has had no hypoglycemic like responses. No new history of any numbness, tingling, weakness or visual problems. No nausea, anorexia or other constitutional symptoms. There has been no foot problems or non healing lesions. [facility]: 6.1 Calculated MB mg%. Average blood sugars 100-115 mg%. Checking sugars : several times a week Medication Types Include: TZD and GLP-1 Secondary complications include none. Macro-vascular complications include none. Therapy reviewed regarding diabetic management and include Glucophage and Wegovy Compliance: good Renal Protection: TASHA inhibitors Lipid management: statins Urinary microalbumin: A1 . Ophthalmological: has seen eye doctor within the last year #4. Hx of obesity. Currently Class 2 Obesity BMI 35-39.99. Has tried numerous dietary support and supplements with no benefit. Instructed on the health consequences of the obese status particularly cancer - diabetes and heart disease. Discussed new modalities of weight loss including GLP-1 medications that are used to treat diabetes. Potential candidate for bariatric surgery: No. Wishes to be evaluated by Dietary: No dietary restrictions at this time. Is currently taking Ozempic quite well. Will continue on this. Will check a hemoglobin A1c level..Medication List Reviewed and Reconciled 01/21/2023Lopressor 25 MG One BidZoloft 100 MG (TABLET - ORAL) One Daily For DepressionLisinopril 20 MG (TABLET - ORAL) One Daily For HtnVitamin D Three Times A WeekGlucophage 500 MG (TABLET - ORAL) One Tablet Every Day At BedtimeSynthroid 0.025 MG (TABLET - ORAL) QdRosuvastatin 10 MG TABLET One DailyWegovy 1 MG/.5ML INJECTION, SOLUTION Once WeeklyVascepa 1000 MG CAPSULE 4 DailyVaccination and [id number] Ddkepwdgc0089-33 Qbtmrdnig7395-83 Covid Booster Fhzwtu7077-28 Covid Gytxje6028-78 Djpgvmzzt0989-98 Nqyf2159-67 Zostavax (shingles)Surgical HistoryThyroid BiopsyPreventative Testing Confirmed by Our Dmfbjdg6207/07/2022 ALBUMIN 3.8 G/DL07/07/2022 HAIC 6.1 % 04/18/2022 MAMMOGRAM COLONOSCOPY ( 3 YEARS ) 04/15/2025Social HistorySOCIAL HISTORY:Does not smoke cigarettes. Drinking Hx: 2 Cups of tea perday, < 6 cans of soft drinks per day.Exercise: InfrequentlySexual Hx: Sexually ActiveOccupation: Office WorkerFamily HistoryFAMILY HISTORY:Mother Living 75 years old CholesterolFather 71 years old neuroendocrine cancer of stomach, CVA and GBNo brothers or sisters King Parker MD [address] [facility], [place] [address], [place], [address], [place] - [employer] 01/21/2023 16:48:47 4 text/html Patient Name: Alice VazquezDate Of Service: Thursday ( 01.20.2024 ): 1970 Age: 53 Vital Signs:Blood Pressure: Sitting Rt. Arm 118/82Pulse: Sitting 80 /min and RegularRespiratory Rate: 14Height 62 in or 1.6 mWeight 216 lb or 98.0 kgBMI 39.5Temperature: 97 F or 36.1 CDCCT HAIC: 5.2 Calculated MB mg%Pulse Oximetry: 98 % at rest on no oxygen Chief Complaint: Addressed in HPI Problems or conditions discussed in the HPI were the only ones reviewed during the encounter.Only social and family history addressed in the HPI were reviewed during this encounter. Attendant(s): NoneConstitutional and Systemic Symptoms:none Medication Reconciliation: from medication list. History of Present Illness #1. Essential Hypertension: Stage: pre hypertension Interval Neurological Complaints no headaches, dizziness, weakness, visual changes, ataxia, aphasia and apraxia. No shortness of breath, orthopnea or cardiovascular symptoms. No other symptoms related to end organ damage. Pressure has been under excellent control. Currently normal. No other end organ symptoms or findings. Therapy reviewed regarding management of hypertension and includes salt restriction and Lisinopril and Lopressor. #2. Type II Hypercholesterolaemia: Currently taking medication and tolerating well. No interval complaints of any muscle pain or arthralgia. No significant liver changes with medications. Last lipid panel: excellent control. Therapy reviewed regarding treatment of cholesterol management and include diet. #3. Hx of hypothyroidism currently stable. Heat intolerance: no Fatigue: no Weight gain: no Difficulty concentrating: no Muscle Symptoms: none Skin Texture: normal Skin Color: normal Currently taking synthroid. #4. Hx of obesity. Currently overweight. Has tried numerous dietary support and supplements with no benefit. Instructed on the health consequences of the obese status particularly cancer - diabetes and heart disease. Discussed other modalities of weight loss no . Potential candidate for bariatric surgery: Yes. Wishes to be evaluated by Dietary: No and was offered to be evaluated and instructed by mud mixer operator on weight loss diet.#5. GERD current on no medication for this. Likely secondary to the Ozempic the patient is taking. Will add some Protonix 40 mg once daily to current regimen. Active Medication ListLopressor 25 MG One BidZoloft 100 MG (TABLET - ORAL) One Daily For DepressionLisinopril 20 MG (TABLET - ORAL) One Daily For HtnVitamin D Three Times A WeekGlucophage 500 MG (TABLET - ORAL) One Tablet Every Day At BedtimeSynthroid 0.025 MG (TABLET - ORAL) QdRosuvastatin 20 MG TABLET One DailyOzempic 1 MG/.5ML INJECTION, SOLUTION Once WeeklyVascepa 1000 MG CAPSULE 4 Daily Vaccination and Immunization(X) 2023- INFLUENZA(X) 2011- TDAP( ) 2020- COVID PFIZER(X) 2020- COVID BOOSTER PFIZER Surgical [id number] Thyroid Biopsy Preventative Testing( ) 01/18/2024 Albumin 3.9 G/DL( ) 01/18/2024 HAIC 5.2 %( ) 03/04/2023 Micro Albumin <6.0 MG/L N(X) 04/18/2022 Mammogram 04/18/2023( ) 04/15/2022 Colonoscopy ( 3 Years ) 04/15/2025 Social HistorySOCIAL HISTORY:Does not smoke cigarettes. 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 01/20/2024 15:26:36 OBGyn Episode No OBEpisode recorded.
== END 2024-05-17 12:36 | disposition home or self-care (01) ==
PROVIDERS: PCP Internal Medicine; Visit Provider Internal Medicine
DX: E04.1 Nontoxic single thyroid nodule (principal)
CPT/HCPCS: 10005; 10006; 88172; 88173; 88305

== ENCOUNTER 2024-06-06 10:14 | Outpatient (CLI) | payer BC, SELFPAY ==
--- NOTE | ~2024-06-06 | US_ITS ---
EXAMINATION: US transvaginal DATE: 06/06/2024 10:50 INDICATION: Postmenopausal bleeding. TECHNIQUE: Multiple transvaginal sonographic images of the pelvis were obtained. COMPARISON: None. FINDINGS: The uterus measures 7.6 x 3.6 x 5.3 cm. There is no free fluid in the pelvis. The endometrial complex measures 6 mm in thickness. The right ovary measures 7.3 x 3.8 x 5.0 cm. There are 4.7 and 3.[address] sts in right ovary. The left ovary measures 2.6 x 1.9 x 2.7 cm. IMPRESSION: 1. Mildly thickened endometrial complex. The differential diagnosis includes endometrial hyperplasia, polyp, and carcinoma. Biopsy is recommended. 2. Right ovarian cysts measuring up to 4.7 cm, likely benign. Pelvis ultrasound is recommended in one year. Reviewed, dictated and finalized at location A. L ERECTING PUSHER IMPRESSION: 1. Mildly thickened endometrial complex. The differential diagnosis includes en dometrial hyperplasia, polyp, and carcinoma. Biopsy is recommended. 2. Right ovarian cysts measuring up to 4.7 cm, likely benign. Pelvis ultrasound is recommended in one year.
== END 2024-06-06 10:15 | disposition home or self-care (01) ==
PROVIDERS: PCP Nurse Practitioner; Visit Provider Nurse Practitioner
DX: N83.291 Other ovarian cyst, right side (principal); N85.00 Endometrial hyperplasia, unspecified; R93.89 Abnormal findings on diagnostic imaging of other specified body structures
CPT/HCPCS: 76830

== ENCOUNTER 2024-06-22 12:20 | Outpatient (CLI) | payer BC, SELFPAY ==
[2024-06-22 13:16] LABS: Anion Gap 13 mmol/L (4-12); Blood Urea Nitrogen 11 mg/dL (7-17); Calcium 9.3 mg/dL (8.4-10.2); Carbon Dioxide 25 mmol/L (22-30); Chloride 103 mmol/L (98-107); Estimated Glomerular Filt Rate > 60; Glucose 101 mg/dL (65-110); Potassium 4.5 mmol/L (3.4-5.0); Sodium 141 mmol/L (137-145)
--- OUTSIDE RECORDS SUMMARY | 2024-06-22 13:45 | XMS_ITS ---
Author Organization [facility] Address [address] [place] [address] Care Team Providers Care Auctioneer Automobile Name Role Phone Gautam Parker MD Primary Care Provider Marcia Watson Unavailable [phone] REASON FOR VISIT SCIT - Traditional Schedule Allergy immunotherapy Medications Medication SIG (Take, Route, Frequency, Duration) Notes Start Date End Date Status SIT (TRADITIONAL) variable per schedule SC per schedule for to be determined Active Encounters Encounter Location Date Provider Diagnosis [facility] [address] [place] [phone] 04/11/2024 Marcia Wade Allergic rhinitis du e [...] Up: 1 Week, Reason: Provider Name:Marcia brown, 07/04/2024 09:00:00 AM, [address], [address], [place], [address], Progress Notes * Arik VAZQUEZ:1970 (53 yo F)Acc No.[id number]:04/11/2024 SCIT-Aeroallergen Patient: Alice SUNSHINE Provider: Lolita Wade MD :1970 A ge:53 Y S ex:Female Date:04/11/2024 Address:[address] [place], [place] [id number] Pcp:Gautam Parker MD Subjective: * Chief Complaints: * S CIT - Traditional Schedule Allergy immunotherapy * HPI: * Introduction: The patient is here for scheduled immunotherapy. [...] (subcutaneous immunotherapy) is on file. * Medical History: * Surgical History: * Hospitalization/Major Diagno stic Procedure: * Medications: Objective: * Vitals: Assessment: * Assessment: 1. A llergic rhinitis due to pollen - J30.1 (Primary) 2 . O ther allergic rhinitis - J30.89 3 . O ther chronic allergic conjunctivitis - H10.45 ? Plan: * Treatment: * Procedure Codes: 9 5117 IMMUNOTHERAPY INJECTIONS * Follow Up: 1 Week * Billing Information: * Visit Code: * Procedure Codes: 37651 IMMUNOTHERAPY INJECTIONS. * UTIVE CHAIRMAN OF THE BOARD Sign off status: Completed true * Provider: Lolita Wade MD Date: 06/12/2023 Generated for Kodii marlene/Margie/eTransmitting on: 0 06/22/2024 01:45 PM EXECUTIVE CHAIRMAN OF THE BOARD History and Physical Notes * HPI (History [...]
--- OUTSIDE RECORDS SUMMARY | 2024-06-22 13:45 | XMS_ITS | Referral Summary ---
Author Organization [facility] Address [address] [facility] [place] [address] Care Team Providers Care Waterproofer Name Role Phone Unavailable Primary Care Provider Unavailabl e Source Comments [facility],non-owned Affiliates and Associated Physician Practices is amultiple site organization consisting of ambulatory clinics and hospital sitesin [place], [place], [place] and [place]. This disclosure is being madepursuant to the Care Everywhere program and may not contain all information available regarding this patient. Last updated 18.[facility] [employer] Social History Tobacco Use Types Packs/Day Years Used Date Smoking Tobacco: Never Assessed Sex and Gender Information Value Date Recorded Sex Assigned at Not on file Gender Identity Not on file Sexual Orientation Not on file Plan of Treatment Upcoming Encounters Date Type Department Care Team (Late st Contact Info) Description 06/24/2024 1:30 PM EMPLOYEE REPRESENTATIVE Office Visit [facility] [facility], [place] [address] Kevin Melendez MD [address] [place] [address] [place] [phone] Alice Vazquez Personal/Family Self 1970
--- OUTSIDE RECORDS SUMMARY | 2024-06-22 13:45 | XMS_ITS | Clinical Summary ---
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
--- OUTSIDE RECORDS SUMMARY | 2024-06-22 13:45 | XMS_ITS ---
Author Organization [facility] Address [address] [place] [address] Care Team Providers Care Multi Operation Machine Operator Name Role Phone Gautam Parker MD Primary Care Provider Marcia Watson Unavailable [phone] REASON FOR VISIT SCIT - Traditional Schedule Allergy immunotherapy Medications Medication SIG (Take, Route, Frequency, Duration) Notes Start Date End Date Status SIT (TRADITIONAL) variable per schedule SC per schedule for to be determined Active Encounters Encounter Location Date Provider Diagnosis [facility] [address] [place] [phone] 05/09/2024 Marcia Wade Allergic rhinitis du e [...] Provider Name:Marcia brown, 07/04/2024 09:00:00 AM, [address], [address], [place], [address], Progress Notes * Arik VAZQUEZ:1970 (53 yo F)Acc No.[id number]:05/09/2024 SCIT-Aeroallergen Patient: Alice SUNSHINE Provider: Lolita Wade MD :1970 A ge:53 Y S ex:Female Date:05/09/2024 Address:[address] [place], [place] [phone] Pcp:Gautam Parker MD Subjective: * Chief Complaints: [...] Information: * Visit Code: * Procedure Codes: 90600 IMMUNOTHERAPY INJECTIONS. * GAS SPECIALIST Sign off status: Completed true * Provider: Lolita Wade MD Date: 0 05/09/2024 Generated for Kodii marlene/Margie/Vernonitting on: 0 06/22/2024 01:45 PM BULK GAS SPECIALIST History and Physical Notes * HPI (History [...]
--- OUTSIDE RECORDS SUMMARY | 2024-06-22 13:46 | XMS_ITS | Data Portability ---
Author Organization [facility] [employer], Main Office Address [address] [place] [address] Care Team Providers Care Alley Worker Name Role Phone KING PARKER Primary Care Provider [phone] Assessment No assessment recorded. Plan of Treatment Reminders Order Date Submit Date Provider Last Modified By Organization Details Last Modified Time Details Appointments None recorded. Lab glycohemogl obin, total, blood 2023 024 [email or web address] [facility] (Lab), [address] [place], [address], 4 17:32:07 TSH, serum or plasma 2023 024 [email or web address] [facility] (Lab), [address] [place], [address], 4 17:32:07 T4, free, serum 2023 024 [id number] [facility] (Lab), [address] [place], [address], 4 17:32:07 lipid panel, serum 2023 024 [email or web address] [facility] (Lab), [address] [place], [address], 4 17:32:06 CMP, serum or plasma 2023 024 [id number] [facility] (Lab), [address] [place], [address], 4 17:32:07 CBC w/ auto diff 04/03/ 2024 04/03/2 024 [id number] [facility] (Lab), [address] [place], [address], 4 17:32:06 HbA1c (hemoglobin A1c), blood 2022 023 [id number] [facility] (Lab), [address] [place], [address], 3 09:58:32 microalbumi n/creatinin e, mass ratio, urine 2022 023 [id number] [facility] (Lab), [address] [place], [address], 3 09:58:32 CBC w/ auto diff [id number] [place] [address] (Lab), [address] [place], [address], 3 09:58:31 CMP, serum or plasma [id number] [place] [address] (Lab), [address] [place], [address], 3 09:58:31 lipid panel, serum [id number] [place] [address] (Lab), [address] [place], [address], 3 09:58:31 T4, free, serum [email or web address] [place] [address] (Lab), [address] [place], [address], 3 09:58:31 TSH, serum or plasma [id number] [place] [address] (Lab), [address] [place], [address], 3 09:58:32 lipid panel, serum [address] (Lab), [address] [place], [address], 3 10:10:44 glycohemogl obin, total, blood 2022 023 [facility] (Lab), [address] [place], [address], 3 13:33:04 microalbumi n/creatinin e, ratio, urine 2022 023 [facility] (Lab), [address] [place], [address], 3 13:08:05 CMP, serum or plasma [address] (Lab), [address] [place], [address], 3 17:10:52 TSH, serum or plasma [address] (Lab), [address] [place], [address], 3 17:10:52 T4, free, serum [address] (Lab), [address] [place], [address], 3 17:10:52 Referral None recorded. Procedures None recorded. Surgeries None recorded. Imaging None recorded. Medication Orders Ozempic 1 mg/dose (4 mg/3 mL) subcutaneou s pen injector 2022 023 [id number], [address] [facility], [place], [place], [id number], 3 17:10:02 metformin ER 500 mg tablet,exte nded release 24 hr 2022 023 [id number], [address], [place], [place], [id number], 17:10:32 Patient TargetsNo targets recorded. Patient Instructions Encounter Date Encounter Id Patient Instructions Last Modified By Organization Details Last Modified Time 07/16/2022 [id number] Follow-up hypertension -hyperlipidemia - type 2 diabetes-anxiety disorder -obesity -of hypothyroidism all clinically stable. Has had recent blood work performed by endocrinology. Will continue with current Rx at this time. Follow-up in six months [email or web address] Not available 07/16/2022 16:12:56 01/21/2023 [id number] risk assessment* [email or web address] Not availabl e 01/21/2023 15:35:59 INFLUENZA VACCIN E TD/TDAP Recommended today, patient declined Ordered Pat ient will get at local pharmacy/health department PNEUMONIA VACCINE Ordered Recommended today, patient declined Patient will get at local pharmacy/health department Recommend ed at age 66 SHINGLES Ordered Recommended today, patient declined Patient will get at local pharmacy/health department MAMMOGRAM: Last Mammogram No screening necessary patient is up to date DEXA SCAN CERVICAL SCREENING/PELVIC EXAMINATION Recommended today, but patient declined Ordered No screening necessary patient is up to date COLORECTAL SCREENING: Last Colonoscopy No screening necessary patient is up to date DEPRESSION SCREENING Negative BMI Overweight continue your current weight loss efforts try to lose 5% of your body weight try to lose 10% of your body weight NUTRITION PHYSICAL ACTIVITY Need more exercise/physical activity VISION ALCOHOL USE No alcohol use TOBACCO USE non smoker LUNG CANCER SCREENING Non Smoker-not indicated SEXUALLY ACTIVE HEPATITIS C SCREENING Not indicated GLUCOSE SCREENING LIPID SCREENING [email or web address] Not available 01/21/2023 15:24:38 Well patient evaluation [...] with voice recognition software. Occasional wrong-word or s ound-a-like substitutions may have occurred due to the inherent limitations of voice recognition software. Read the chart carefully and recognize, using context, where substitutions have occurred. Next Appt: 6 Months Approximate Date: 07/20/2023 Not available 01/21/2023 15:35:41 07/22/2023 [id number] Follow-up hypertension, hyperlipidemia, hypothyroidism, type 2 diabetes [...] with voice recognition software. Occasional wrong-word or s ound-a-like substitutions may have occurred due to the inherent limitations of voice recognition software. Read the chart carefully and recognize, using context, where substitutions have occurred. Not available 07/22/2023 15:34:03 01/20/2024 [id number] Follow-up essent ial hypertension, hyperlipidemia, hypothyroidism, obesity class two as well as Gastroenterology esophageal reflux all clinically stable. Has had recent blood work performed which looked excellent. Will continue on current Rx follow-up in six months Follow Up: 6 Months Approximate Date: 07/18/2024 Portions of the record may have been created with voice recognition software. Occasional wrong-word or s ound-a-like substitutions may have occurred due to the inherent limitations of voice recognition software. Read the chart carefully and recognize, using context, where substitutions have occurred. [email or web address] Not available 01/20/2024 15:26:20 Reason for Referral None Reported. Results Created Date Observation Date Name Description Value Unit Range Abnormal Flag Note LastModifiedBy Organization Detail LastModifiedTime 07/08/19 23 07/07/2022 COMPR EHENS IESHA METAB OLIC PANEL sodium 136 mmol/ L 137-14 5 low Not Available [facility] (Lab) [address] [place], [address], 07/07/2022 14:23:55 07/08/19 23 07/07/2022 COMPR EHENS IESHA METAB OLIC PANEL potassium 4.1 mmol/ L 3.5-5. 1 Not Available [facility] (Lab) [address] [place], [address], 07/07/2022 14:23:55 07/08/19 23 07/07/2022 COMPR EHENS IESHA METAB OLIC PANEL chloride 104 mmol/ L 98-107 Not Available [facility] (Lab) [address] [place], [address], 07/07/2022 14:23:55 07/08/19 23 07/07/2022 COMPR EHENS IESHA METAB OLIC PANEL carbon dioxide 25 mmol/ L 22-30 Not Available [facility] (Lab) [address] [place], [address], 07/07/2022 14:23:55 07/08/19 23 07/07/2022 COMPR EHENS IESHA METAB OLIC PANEL anion gap 11.1 mmol/ L 14-22 low Not Available [facility] (Lab) [address] [place], [address], 07/07/2022 14:23:55 07/08/19 23 07/07/2022 COMPR EHENS IESHA METAB OLIC PANEL glucose 90 mg/dL 70-99 Not Available [facility] (Lab) [address] [place], [address], 07/07/2022 14:23:55 07/08/19 23 07/07/2022 COMPR EHENS IESHA METAB OLIC PANEL BUN 12 mg/dL 8-19 Not Available [facility] (Lab) [address] [place], [address], 07/07/2022 14:23:55 07/08/19 23 07/07/2022 COMPR EHENS IESHA METAB OLIC PANEL creatinine 0.77 mg/dL 0.66-1 .25 Not Available [facility] (Lab) [address] [place], [address], 07/07/2022 14:23:55 07/08/1907/07/2022 COMPR EHENS IESHA METAB OLIC PANEL GFR >60 Refer ence Range : [place] ge GFR Healt hy Adult : >60 [...] or ethni c subgr oups, such as Hisok nics. Outsi de the valid ated richie [...] calcu lator is avail able on the [facility] websi te: https :[email or web address] [email or web address] rg/pr eveliaess ional s/kdo qi/gf r_cal culat or Not Available [facility] (Lab) [address] [place], [address], 07/07/2022 14:23:55 07/08/1907/07/2022 COMPR EHENS IESHA METAB OLIC PANEL alkaline phosphatase 65 U/L 38-126 Not Available [facility] (Lab) [address] [place], [address], 07/07/2022 14:23:55 07/08/19 23 07/07/2022 COMPR EHENS IESHA METAB OLIC PANEL alanine aminotransfe rase 27 U/L 0-35 Not Available [facility] (Lab) [address] [place], [address], 07/07/2022 14:23:55 07/08/19 23 07/07/2022 COMPR EHENS IESHA METAB OLIC PANEL aspartate aminotransfe rase 26 U/L 15-37 Not Available [facility] (Lab) [address] [place], [address], 07/07/2022 14:23:55 07/08/19 23 07/07/2022 COMPR EHENS IESHA METAB OLIC PANEL bilirubin, total 0.40 mg/dL 0.20-1 .30 Not Available [facility] (Lab) [address] [place], [address], 07/07/2022 14:23:55 07/08/19 23 07/07/2022 COMPR EHENS IESHA METAB OLIC PANEL calcium 8.8 mg/dL 8.4-10 .2 Not Available [facility] (Lab) [address] [place], [address], 07/07/2022 14:23:55 07/08/19 23 07/07/2022 COMPR EHENS IESHA METAB OLIC PANEL total protein 6.9 g/dL 6.3-8. 2 Not Available [facility] (Lab) [address] [place], [address], 07/07/2022 14:23:55 07/08/19 23 07/07/2022 COMPR EHENS IESHA METAB OLIC PANEL albumin 3.8 g/dL 3.4-5. 0 Not Available [facility] (Lab) [address] [place], [address], 07/07/2022 14:23:55 07/08/19 23 07/07/2022 COMPR EHENS IESHA METAB OLIC PANEL globulin 3.1 g/dL 2.6-4. 2 Not Available [facility] (Lab) [address] [place], [address], 07/07/2022 14:23:55 07/08/19 23 07/07/2022 COMPR EHENS IESHA METAB OLIC PANEL A/G ratio 1.2 ratio 1.0-2. 0 Not Available [facility] (Lab) [address] [place], [address], 07/07/2022 14:23:55 07/08/19 23 07/07/2022 LIPID PANEL cholesterol 184 mg/dL 140-19 9 NIH SURAJ NSUS RECOM MENDA TION FOR ESTEBAN STERO L: ADULT CHILD LOW RISK: <200 <170 BORDE RLINE : <200- 239 ----- HIGH RISK: >240 >200 Not Available [facility] (Lab) [address] [place], [address], 07/07/2022 14:23:59 07/08/19 23 07/07/2022 LIPID PANEL triglyceride s 270 mg/dL 0-150 high NIH SURAJ NSUS REPOR T RECOM MENDA TION FOR TRIGL YCERI LLUVIA: ADULT CHILD LOW RISK: <150 ----- BODER LINE: 150-1 99 ----- HIGH RISK: >200 ----- Not Available [facility] (Lab) [address] [place], [address], 07/07/2022 14:23:59 07/08/19 23 07/07/2022 LIPID PANEL HDL cholesterol 38 mg/dL 40- low Not Available [facility] (Lab) [address] [place], [address], 07/07/2022 14:23:59 07/08/19 23 07/07/2022 LIPID PANEL LDL cholesterol, calculated 92 mg/dL 0-130 NIH SURAJ NSUS REPOR T RECOM MENDA TIONS FOR LDL: ADULT CHILD LOW RISK <130 <110 (OPTI MAL LDL) <100 ----- JOVANDE RLINE : 130-1 59 ----- HIGH RISK: >160 >130 A TRIGL YCERI DE RESUL T >400 INVAL IDATE S THE CALCU LATIO N FOR LDL FRACT IONAT ION - THE LDL RESUL T WILL NOT BE REPOR ADRYAN. Not Available [facility] (Lab) [address] [place], [address], 07/07/2022 14:23:59 07/08/19 23 07/07/2022 T3 FREE free T3 3.1 pg/mL 2.77-5 .27 Not Available [facility] (Lab) [address] [place], [address], 07/07/2022 14:45:41 07/08/19 23 07/07/2022 T4 FREE free T4 0.90 NG/dL 0.78-2 .19 Not Available [facility] (Lab) [address] [place], [address], 07/07/2022 14:45:47 07/08/19 23 07/07/2022 TSH thyroid-stim ulating hormone 2.160 uIU/m L 0.465- 4.680 Not Available [facility] (Lab) [address] [place], [address], 07/07/2022 14:47:33 07/08/19 23 07/07/2022 HEMOG LOBIN A1C HA1C 6.1 % 4.0-6. 0 high Diabe teresa Scree radha Crite aiden: <5.7% Consi stent with absen ce of diabe teresa 5.7-6 .4% Consi stent with incre ased risk for diabe teresa (pred iabet es) >OR=6 .5% Consi stent with diabe teresa REFER ENCE: Diabe teresa Care 2016, 39(Lee ppl.1 ):s13 -s22 Not Available [facility] (Lab) [address] [place], [address], 07/07/2022 15:03:47 07/08/19 23 07/08/2022 INSUL IN insulin 32.1 uIU/m L 2.6-24 .9 high Perfo rmed at: CB - [facility] [address] [facility], [place] [address] Lab Direc tor: Reginald aguilar PhD, Phone : [phone] Not Available [facility] (Lab) [address] [place], [address], 07/08/2022 10:13:25 03/04/20 23 03/04/2023 CBC/C OMPLE TE BLD COUNT W/DIF F white blood cells 8.3 x10'3 /uL 4.2-10 .8 Not Available [facility] (Lab) [address] [place], [address], 03/04/2023 12:14:45 03/04/20 23 03/04/2023 CBC/C OMPLE TE BLD COUNT W/DIF F red blood cells 4.61 x10'6 /uL 3.80-5 .20 Not Available [facility] (Lab) [address] [place], [address], 03/04/2023 12:14:45 03/04/20 23 03/04/2023 CBC/C OMPLE TE BLD COUNT W/DIF F hemoglobin 13.1 g/dL 12.0-1 5.6 Not Available [facility] (Lab) [address] [place], [address], 03/04/2023 12:14:45 03/04/20 23 03/04/2023 CBC/C OMPLE TE BLD COUNT W/DIF F hematocrit 40.3 % 35.7-4 5.7 Not Available [facility] (Lab) [address] [place], [address], 03/04/2023 12:14:45 03/04/20 23 03/04/2023 CBC/C OMPLE TE BLD COUNT W/DIF F mean red cell volume 87.4 fL 82.0-9 9.0 Not Available [facility] (Lab) [address] [place], [address], 03/04/2023 12:14:45 03/04/2003/04/2023 CBC/C OMPLE TE BLD COUNT W/DIF F mean red cell hemoglobin 28.4 pg 27.0-3 3.0 Not Available [facility] (Lab) [address] [place], [address], 03/04/2023 12:14:45 03/04/2003/04/2023 CBC/C OMPLE TE BLD COUNT W/DIF F mean RBC HGB concentratio n 32.5 g/dL 31.0-3 6.0 Not Available [facility] (Lab) [address] [place], [address], 03/04/2023 12:14:45 03/04/2003/04/2023 CBC/C OMPLE TE BLD COUNT W/DIF F red cell distribution width 14.4 % 11.8-1 5.5 Not Available [facility] (Lab) [address] [place], [address], 03/04/2023 12:14:45 03/04/2003/04/2023 CBC/C OMPLE TE BLD COUNT W/DIF F platelets 234 x10'3 /uL 150-40 0 Not Available [facility] (Lab) [address] [place], [address], 03/04/2023 12:14:45 03/04/2003/04/2023 CBC/C OMPLE TE BLD COUNT W/DIF F mean platelet volume 10.5 fL 9.0-12 .4 Not Available [facility] (Lab) [address] [place], [address], 03/04/2023 12:14:45 03/04/2003/04/2023 CBC/C OMPLE TE BLD COUNT W/DIF F neutrophils 57.7 % 39.0-7 2.0 Not Available [facility] (Lab) [address] [place], [address], 03/04/2023 12:14:45 03/04/20 23 03/04/2023 CBC/C OMPLE TE BLD COUNT W/DIF F lymphocytes 30.8 % 16.0-4 7.0 Not Available [facility] (Lab) [address] [place], [address], 03/04/2023 12:14:45 03/04/2003/04/2023 CBC/C OMPLE TE BLD COUNT W/DIF F monocytes 8.3 % 5.0-12 .0 Not Available [facility] (Lab) [address] [place], [address], 03/04/2023 12:14:45 03/04/2003/04/2023 CBC/C OMPLE TE BLD COUNT W/DIF F eosinophils 2.0 % 1.0-7. 0 Not Available [facility] (Lab) [address] [place], [address], 03/04/2023 12:14:45 03/04/2003/04/2023 CBC/C OMPLE TE BLD COUNT W/DIF F basophils 0.7 % 0.0-2. 0 Not Available [facility] (Lab) [address] [place], [address], 03/04/2023 12:14:45 03/04/2003/04/2023 CBC/C OMPLE TE BLD COUNT W/DIF F immature granulocytes 0.5 % 0.00-0 .50 Not Available [facility] (Lab) [address] [place], [address], 03/04/2023 12:14:45 03/04/2003/04/2023 CBC/C OMPLE TE BLD COUNT W/DIF F neutrophils, absolute count 4.79 x10'3 /uL 1.5-8. 0 Not Available [facility] (Lab) [address] [place], [address], 03/04/2023 12:14:45 03/04/20 23 03/04/2023 CBC/C OMPLE TE BLD COUNT W/DIF F lymphocytes, absolute count 2.56 x10'3 /uL 1.07-3 .43 Not Available [facility] (Lab) [address] [place], [address], 03/04/2023 12:14:45 03/04/2003/04/2023 CBC/C OMPLE TE BLD COUNT W/DIF F monocytes, absolute count 0.69 x10'3 /uL 0.29-0 .99 Not Available [facility] (Lab) [address] [place], [address], 03/04/2023 12:14:45 03/04/20 23 03/04/2023 CBC/C OMPLE TE BLD COUNT W/DIF F eosinophils, absolute count 0.17 x10'3 /uL 0.02-0 .53 Not Available [facility] (Lab) [address] [place], [address], 03/04/2023 12:14:45 03/04/2003/04/2023 CBC/C OMPLE TE BLD COUNT W/DIF F basophils, absolute count 0.06 x10'3 /uL 0.01-0 .08 Not Available [facility] (Lab) [address] [place], [address], 03/04/2023 12:14:45 03/04/20 23 03/04/2023 CBC/C OMPLE TE BLD COUNT W/DIF F immature granulocytes ,absolute 0.04 x10'3 /uL 0.00-0 .05 Not Available [facility] (Lab) [address] [place], [address], 03/04/2023 12:14:45 03/04/20 23 03/04/2023 CBC/C OMPLE TE BLD COUNT W/DIF F nucleated red blood cells 0.0 % -0 Not Available [facility] (Lab) [address] [place], [address], 03/04/2023 12:14:45 03/04/20 23 03/04/2023 CBC/C OMPLE TE BLD COUNT W/DIF F NRBC# 0.00 x10'3 /uL Not Available [facility] (Lab) [address] [place], [address], 03/04/2023 12:14:45 03/04/20 23 03/04/2023 MICRO ALBUM N RNDM W/CRE AT RATIO ur creat 36.01 mg/dL REFER ENCE RANGE NOT ESTAB LISHE D FOR RANDO M URINE CREAT ININE Not Available [facility] (Lab) [address] [place], [address], 03/04/2023 13:22:00 03/04/20 23 03/04/2023 MICRO ALBUM N RNDM W/CRE AT RATIO microalbumin , urine <6.0 mg/L 0.0-16 .6 Not Available [facility] (Lab) [address] [place], [address], 03/04/2023 13:22:00 03/04/20 23 03/04/2023 COMPR EHENS IESHA METAB OLIC PANEL sodium 137 mmol/ L 137-14 5 Not Available [facility] (Lab) [address] [place], [address], 03/04/2023 13:30:10 03/04/20 23 03/04/2023 COMPR EHENS IESHA METAB OLIC PANEL potassium 4.0 mmol/ L 3.5-5. 1 Not Available [facility] (Lab) [address] [place], [address], 03/04/2023 13:30:10 03/04/20 23 03/04/2023 COMPR EHENS IESHA METAB OLIC PANEL chloride 103 mmol/ L 98-107 Not Available [facility] (Lab) [address] [place], [address], 03/04/2023 13:30:10 03/04/20 23 03/04/2023 COMPR EHENS IESHA METAB OLIC PANEL carbon dioxide 26 mmol/ L 22-30 Not Available [facility] (Lab) [address] [place], [address], 03/04/2023 13:30:10 03/04/20 23 03/04/2023 COMPR EHENS IESHA METAB OLIC PANEL anion gap 12.0 mmol/ L 14-22 low Not Available [facility] (Lab) [address] [place], [address], 03/04/2023 13:30:10 03/04/20 23 03/04/2023 COMPR EHENS IESHA METAB OLIC PANEL glucose 101 mg/dL 70-99 high Not Available [facility] (Lab) [address] [place], [address], 03/04/2023 13:30:10 03/04/20 23 03/04/2023 COMPR EHENS IESHA METAB OLIC PANEL BUN 10 mg/dL 8-19 Not Available [facility] (Lab) [address] [place], [address], 03/04/2023 13:30:10 03/04/20 23 03/04/2023 COMPR EHENS IESHA METAB OLIC PANEL creatinine 0.79 mg/dL 0.66-1 .25 Not Available [facility] (Lab) [address] [place], [address], 03/04/2023 13:30:10 03/04/20 23 03/04/2023 COMPR EHENS IESHA METAB OLIC PANEL GFR >60 Refer ence Range : [place] ge GFR Healt hy Adult : >60 [...] calcu lator is avail able on the [facility] websi te: https :[email or web address] [email or web address] [email or web address] michelineal s/kdo qi/gf r_cal culat or Not Available [facility] (Lab) [address] [place], [address], 03/04/2023 13:30:10 03/04/20 23 03/04/2023 COMPR EHENS IESHA METAB OLIC PANEL alkaline phosphatase 59 U/L 38-126 Not Available [facility] (Lab) [address] [place], [address], 03/04/2023 13:30:10 03/04/20 23 03/04/2023 COMPR EHENS IESHA METAB OLIC PANEL alanine aminotransfe rase 27 U/L 0-35 Not Available [facility] (Lab) [address] [place], [address], 03/04/2023 13:30:10 03/04/20 23 03/04/2023 COMPR EHENS IESHA METAB OLIC PANEL aspartate aminotransfe rase 36 U/L 15-37 Not Available [facility] (Lab) [address] [place], [address], 03/04/2023 13:30:10 03/04/20 23 03/04/2023 COMPR EHENS IESHA METAB OLIC PANEL bilirubin, total 0.50 mg/dL 0.20-1 .30 Not Available [facility] (Lab) [address] [place], [address], 03/04/2023 13:30:10 03/04/20 23 03/04/2023 COMPR EHENS IESHA METAB OLIC PANEL calcium 9.2 mg/dL 8.4-10 .2 Not Available [facility] (Lab) [address] [place], [address], 03/04/2023 13:30:10 03/04/20 23 03/04/2023 COMPR EHENS IESHA METAB OLIC PANEL total protein 7.6 g/dL 6.3-8. 2 Not Available [facility] (Lab) [address] [place], [address], 03/04/2023 13:30:10 03/04/20 23 03/04/2023 COMPR EHENS IESHA METAB OLIC PANEL albumin 4.0 g/dL 3.4-5. 0 Not Available [facility] (Lab) [address] [place], [address], 03/04/2023 13:30:10 03/04/20 23 03/04/2023 COMPR EHENS IESHA METAB OLIC PANEL globulin 3.6 g/dL 2.6-4. 2 Not Available [facility] (Lab) [address] [place], [address], 03/04/2023 13:30:10 03/04/20 23 03/04/2023 COMPR EHENS IESHA METAB OLIC PANEL A/G ratio 1.1 ratio 1.0-2. 0 Not Available [facility] (Lab) [address] [place] [address], [address], 03/04/2023 13:30:10 03/04/20 23 03/04/2023 LIPID PANEL cholesterol 200 mg/dL 140-19 9 high NIH SURAJ NSUS RECOM MENDA TION FOR ESTEBAN STERO L: ADULT CHILD LOW RISK: <200 <170 BORDE RLINE : <200- 239 ----- HIGH RISK: >240 >200 Not Available [facility] (Lab) [address] [place] [address], [address], 03/04/2023 13:30:17 03/04/20 23 03/04/2023 LIPID PANEL triglyceride s 258 mg/dL 0-150 high NIH SURAJ NSUS REPOR T RECOM MENDA TION FOR TRIGL YCERI LLUVIA: ADULT CHILD LOW RISK: <150 ----- BODER LINE: 150-1 99 ----- HIGH RISK: >200 ----- Not Available [facility] (Lab) [address] [place] [address], [address], 03/04/2023 13:30:17 03/04/20 23 03/04/2023 LIPID PANEL HDL cholesterol 33 mg/dL 40- low Not Available [facility] (Lab) [address] [place] [address], [address], 03/04/2023 13:30:17 03/04/20 23 03/04/2023 LIPID PANEL [...] WILL NOT BE REPOR ADRYAN. Not Available [facility] (Lab) [address] [place], [address], 03/04/2023 13:30:17 03/04/20 23 03/04/2023 HEMOG LOBIN A1C HA1C 5.5 % 4.0-6. 0 Diabe teresa Scree radha Crite aiden: <5.7% Consi stent with absen ce of diabe tereas 5.7-6 .4% Consi stent with incre ased risk for diabe teresa (pred iabet es) >OR=6 .5% Consi stent with diabe teresa REFER ENCE: Diabe teresa Care 2016, 39(Lee ppl.1 ):s13 -s22 Not Available [facility] (Lab) [address] [place], [address], 03/04/2023 13:33:04 03/04/20 23 03/04/2023 T4 FREE free T4 1.09 NG/dL 0.78-2 .19 Not Available [facility] (Lab) [address] [place], [address], 03/04/2023 13:51:50 03/04/20 23 03/04/2023 TSH thyroid-stim ulating hormone 0.392 uIU/m L 0.465- 4.680 low Not Available [facility] (Lab) [address] [place], [address], 03/04/2023 13:55:05 01/18/20 24 01/18/2024 CBC/C OMPLE TE BLD COUNT W/DIF F white blood cells 8.6 x10'3 /uL 4.2-10 .8 Not Available [facility] (Lab) [address] [place], [address], 01/18/2024 11:40:46 01/18/20 24 01/18/2024 CBC/C OMPLE TE BLD COUNT W/DIF F red blood cells 4.48 x10'6 /uL 3.80-5 .20 Not Available [facility] (Lab) [address] [place], [address], 01/18/2024 11:40:46 01/18/20 24 01/18/2024 CBC/C OMPLE TE BLD COUNT W/DIF F hemoglobin 12.7 g/dL 12.0-1 5.6 Not Available [facility] (Lab) [address] [place], [address], 01/18/2024 11:40:46 01/18/20 24 01/18/2024 CBC/C OMPLE TE BLD COUNT W/DIF F hematocrit 39.9 % 35.7-4 5.7 Not Available [facility] (Lab) [address] [place], [address], 01/18/2024 11:40:46 01/18/20 24 01/18/2024 CBC/C OMPLE TE BLD COUNT W/DIF F mean red cell volume 89.1 fL 82.0-9 9.0 Not Available [facility] (Lab) [address] [place], [address], 01/18/2024 11:40:46 01/18/20 24 01/18/2024 CBC/C OMPLE TE BLD COUNT W/DIF F mean red cell hemoglobin 28.3 pg 27.0-3 3.0 Not Available [facility] (Lab) [address] [place], [address], 01/18/2024 11:40:46 01/18/20 24 01/18/2024 CBC/C OMPLE TE BLD COUNT W/DIF F mean RBC HGB concentratio n 31.8 g/dL 31.0-3 6.0 Not Available [facility] (Lab) [address] [place], [address], 01/18/2024 11:40:46 01/18/20 24 01/18/2024 CBC/C OMPLE TE BLD COUNT W/DIF F red cell distribution width 14.5 % 11.8-1 5.5 Not Available [facility] (Lab) [address] [place], [address], 01/18/2024 11:40:46 01/18/20 24 01/18/2024 CBC/C OMPLE TE BLD COUNT W/DIF F platelets 239 x10'3 /uL 150-40 0 Not Available [facility] (Lab) [address] [place], [address], 01/18/2024 11:40:46 01/18/20 24 01/18/2024 CBC/C OMPLE TE BLD COUNT W/DIF F mean platelet volume 10.7 fL 9.0-12 .4 Not Available [facility] (Lab) [address] [place], [address], 01/18/2024 11:40:46 01/18/20 24 01/18/2024 CBC/C OMPLE TE BLD COUNT W/DIF F neutrophils 52.8 % 39.0-7 2.0 Not Available [facility] (Lab) [address] [place], [address], 01/18/2024 11:40:46 01/18/20 24 01/18/2024 CBC/C OMPLE TE BLD COUNT W/DIF F lymphocytes 35.9 % 16.0-4 7.0 Not Available [facility] (Lab) [address] [place], [address], 01/18/2024 11:40:46 01/18/20 24 01/18/2024 CBC/C OMPLE TE BLD COUNT W/DIF F monocytes 8.1 % 5.0-12 .0 Not Available [facility] (Lab) [address] [place], [address], 01/18/2024 11:40:46 01/18/20 24 01/18/2024 CBC/C OMPLE TE BLD COUNT W/DIF F eosinophils 2.1 % 1.0-7. 0 Not Available [facility] (Lab) [address] [place], [address], 01/18/2024 11:40:46 01/18/20 24 01/18/2024 CBC/C OMPLE TE BLD COUNT W/DIF F basophils 0.7 % 0.0-2. 0 Not Available [facility] (Lab) [address] [place], [address], 01/18/2024 11:40:46 01/18/20 24 01/18/2024 CBC/C OMPLE TE BLD COUNT W/DIF F immature granulocytes 0.4 % 0.00-0 .50 Not Available [facility] (Lab) [address] [place], [address], 01/18/2024 11:40:46 01/18/20 24 01/18/2024 CBC/C OMPLE TE BLD COUNT W/DIF F neutrophils, absolute count 4.53 x10'3 /uL 1.5-8. 0 Not Available [facility] (Lab) [address] [place], [address], 01/18/2024 11:40:46 01/18/20 24 01/18/2024 CBC/C OMPLE TE BLD COUNT W/DIF F lymphocytes, absolute count 3.08 x10'3 /uL 1.07-3 .43 Not Available [facility] (Lab) [address] [place], [address], 01/18/2024 11:40:46 01/18/20 24 01/18/2024 CBC/C OMPLE TE BLD COUNT W/DIF F monocytes, absolute count 0.69 x10'3 /uL 0.29-0 .99 Not Available [facility] (Lab) [address] [place], [address], 01/18/2024 11:40:46 01/18/20 24 01/18/2024 CBC/C OMPLE TE BLD COUNT W/DIF F eosinophils, absolute count 0.18 x10'3 /uL 0.02-0 .53 Not Available [facility] (Lab) [address] [place], [address], 01/18/2024 11:40:46 01/18/20 24 01/18/2024 CBC/C OMPLE TE BLD COUNT W/DIF F basophils, absolute count 0.06 x10'3 /uL 0.01-0 .08 Not Available [facility] (Lab) [address] [place], [address], 01/18/2024 11:40:46 01/18/20 24 01/18/2024 CBC/C OMPLE TE BLD COUNT W/DIF F immature granulocytes ,absolute 0.03 x10'3 /uL 0.00-0 .05 Not Available [facility] (Lab) [address] [place], [address], 01/18/2024 11:40:46 01/18/20 24 01/18/2024 CBC/C OMPLE TE BLD COUNT W/DIF F nucleated red blood cells 0.0 % -0 Not Available [facility] (Lab) [address] [place], [address], 01/18/2024 11:40:46 01/18/20 24 01/18/2024 CBC/C OMPLE TE BLD COUNT W/DIF F NRBC# 0.00 x10'3 /uL Not Available [facility] (Lab) [address] [place], [address], 01/18/2024 11:40:46 01/18/20 24 01/18/2024 LIPID PANEL cholesterol 196 mg/dL 140-19 9 NIH SURAJ NSUS RECOM MENDA TION FOR ESTEBAN STERO L: ADULT CHILD LOW RISK: <200 <170 BORDE RLINE : <200- 239 ----- HIGH RISK: >240 >200 Not Available [facility] (Lab) [address] [place], [address], 01/18/2024 12:03:33 01/18/2001/18/2024 LIPID PANEL triglyceride s 218 mg/dL 0-150 high NIH SURAJ NSUS REPOR T RECOM MENDA TION FOR TRIGL YCERI LLUVIA: ADULT CHILD LOW RISK: <150 ----- BODER LINE: 150-1 99 ----- HIGH RISK: >200 ----- Not Available [facility] (Lab) [address] [place], [address], 01/18/2024 12:03:33 01/18/2001/18/2024 LIPID PANEL HDL cholesterol 41 mg/dL 40- Not Available [facility] (Lab) [address] [place], [address], 01/18/2024 12:03:33 01/18/20 24 01/18/2024 LIPID PANEL LDL cholesterol, calculated 111 mg/dL 0-130 NIH SURAJ NSUS REPOR T RECOM MENDA TIONS FOR LDL: ADULT CHILD LOW RISK <130 <110 (OPTI MAL LDL) <100 ----- LAN RLINE : 130-1 59 ----- HIGH RISK: >160 >130 A TRIGL YCERI DE RESUL T >400 INVAL IDATE S THE CALCU LATIO N FOR LDL FRACT IONAT ION - THE LDL RESUL T WILL NOT BE REPOR ADRYAN. Not Available [facility] (Lab) [address] [place], [address], 01/18/2024 12:03:33 01/18/2001/18/2024 COMPR EHENS IESHA METAB OLIC PANEL sodium 133 mmol/ L 137-14 5 low Not Available [facility] (Lab) [address] [place], [address], 01/18/2024 12:03:40 01/18/20 24 01/18/2024 COMPR EHENS IESHA METAB OLIC PANEL potassium 4.4 mmol/ L 3.5-5. 1 Not Available [facility] (Lab) [address] [place], [address], 01/18/2024 12:03:40 01/18/20 24 01/18/2024 COMPR EHENS IESHA METAB OLIC PANEL chloride 101 mmol/ L 98-107 Not Available [facility] (Lab) [address] [facility] [place], [address], 01/18/2024 12:03:40 01/18/20 24 01/18/2024 COMPR EHENS IESHA METAB OLIC PANEL carbon dioxide 26 mmol/ L 22-30 Not Available [facility] (Lab) [address] [place], [address], 01/18/2024 12:03:40 01/18/20 24 01/18/2024 COMPR EHENS IESHA METAB OLIC PANEL anion gap 10.4 mmol/ L 14-22 low Not Available [facility] (Lab) [address] [place], [address], 01/18/2024 12:03:40 01/18/20 24 01/18/2024 COMPR EHENS IESHA METAB OLIC PANEL glucose 91 mg/dL 70-99 Not Available [facility] (Lab) [address] [place], [address], 01/18/2024 12:03:40 01/18/20 24 01/18/2024 COMPR EHENS IESHA METAB OLIC PANEL BUN 15 mg/dL 8-19 Not Available [facility] (Lab) [address] [place], [address], 01/18/2024 12:03:40 01/18/20 24 01/18/2024 COMPR EHENS IESHA METAB OLIC PANEL creatinine 0.96 mg/dL 0.66-1 .25 Not Available [facility] (Lab) [address] [place], [address], 01/18/2024 12:03:40 09/30/20 24 01/18/2024 COMPR EHENS IESHA METAB OLIC PANEL GFR >60 Refer ence Range : [place] ge GFR Healt hy Adult : >60 [...] calcu lator is avail able on the [facility] websi te: [email or web address] :[email or web address] [email or web address]/pr eveliaess michelineal s/kdo qi/gf r_cal culat or Not Available [facility] (Lab) [address] [place], [address], 01/18/2024 12:03:40 01/18/20 24 01/18/2024 COMPR EHENS IESHA METAB OLIC PANEL alkaline phosphatase 59 U/L 38-126 Not Available [facility] (Lab) [address] [place], [address], 01/18/2024 12:03:40 01/18/20 24 01/18/2024 COMPR EHENS IESHA METAB OLIC PANEL alanine aminotransfe rase 26 U/L 0-35 Not Available [facility] (Lab) [address] [place], [address], 01/18/2024 12:03:40 01/18/20 24 01/18/2024 COMPR EHENS IESHA METAB OLIC PANEL aspartate aminotransfe rase 25 U/L 15-37 Not Available [facility] (Lab) [address] [place], [address], 01/18/2024 12:03:40 01/18/20 24 01/18/2024 COMPR EHENS IESHA METAB OLIC PANEL bilirubin, total 0.60 mg/dL 0.20-1 .30 Not Available [facility] (Lab) [address] [place], [address], 01/18/2024 12:03:40 01/18/20 24 01/18/2024 COMPR EHENS IESHA METAB OLIC PANEL calcium 8.9 mg/dL 8.4-10 .2 Not Available [facility] (Lab) [address] [place], [address], 01/18/2024 12:03:40 01/18/20 24 01/18/2024 COMPR EHENS IESHA METAB OLIC PANEL total protein 7.1 g/dL 6.3-8. 2 Not Available [facility] (Lab) [address] [place], [address], 01/18/2024 12:03:40 01/18/20 24 01/18/2024 COMPR EHENS IESHA METAB OLIC PANEL albumin 3.9 g/dL 3.4-5. 0 Not Available [facility] (Lab) [address] [place], [address], 01/18/2024 12:03:40 01/18/20 24 01/18/2024 COMPR EHENS IESHA METAB OLIC PANEL globulin 3.2 g/dL 2.6-4. 2 Not Available [facility] (Lab) [address] [place], [address], 01/18/2024 12:03:40 01/18/20 24 01/18/2024 COMPR EHENS IESHA METAB OLIC PANEL A/G ratio 1.2 ratio 1.0-2. 0 Not Available [facility] (Lab) [address] [place], [address], 01/18/2024 12:03:40 01/18/20 24 01/18/2024 T4 FREE free T4 1.18 NG/dL 0.78-2 .19 Not Available [facility] (Lab) [address] [place], [address], 01/18/2024 12:21:42 01/18/20 24 01/18/2024 TSH thyroid-stim ulating hormone 0.412 uIU/m L 0.465- 4.680 low Not Available [facility] (Lab) [address] [place], [address], 01/18/2024 12:34:36 01/18/20 24 01/18/2024 HEMOG LOBIN A1C HA1C 5.2 % 4.0-6. 0 Diabe teresa Scree radha Crite aiden: <5.7% Consi stent with absen ce of diabe teresa 5.7-6 .4% Consi stent with incre ased risk for diabe teresa (pred iabet es) >OR=6 .5% Consi stent with diabe teresa REFER ENCE: Diabe teresa Care 2016, 39(Lee ppl.1 ):s13 -s22 Not Available [facility] (Lab) [address] [place], [address], 01/18/2024 15:18:26 09/19/19 23 09/18/2022 XR, wrist , 3 or more view [facility] [address] [place] [address] Patien t Name: ALICE VAZQUEZ Access ion #: [id number] Sex: F : 1970 6 Locati [...] s. IMPRES LORI: Page 1 of 2 [facility] Name: ALICE VAZQUEZ Access ion #: [id number] Sex: F : 1970 6 Exam [...] MD (CT) (CT) Page [address] of [address] (Imaging) [address] [place], [address], 09/18/2022 17:02:14 05/18/1905/17/2024 biops y, thyro id (PROC ) No observ ation record ed. [place] [id number] [facility] [address], [place], [address], 05/18/2024 10:07:39 Result Notes None recorded. Problems Name Problem SNOMED Code Status Onset Date Resolution Date Notes Provider Name and Address Organization Details Recorded Time Diabetes mellitus without complicati on 057888948 Active 2021 Not Available [facility] 3 16:19:26 Benign essential hypertensi on 6693354 Active Not Available [facility] 3 16:19:26 Irritable bowel syndrome with diarrhea 765301878 Active 2017 Not Available [facility] 3 16:19:26 Anxiety disorder 445911492 Active Not Available [facility] 3 16:19:26 Fco thyroiditi s 04176440 Active 2016 Not Available [facility] 3 16:19:26 Finding of body mass index 141925546 Active 2021 Not Available [facility] 3 16:19:26 Hypothyroi dism 22849789 Active 2019 Not Available [facility] 3 16:19:26 Obesity 970885780 Active 2021 Not Available [facility] 3 16:19:26 Nodular goiter 890518711 Active 2016 Not Available [facility] 3 16:19:26 Glossitis 03980622 Active 2020 Not Available [facility] 3 16:19:26 Hyperlipid emia 02972400 Active 2021 Not Available [facility] 3 16:19:26 Palpitatio ns 28497482 Active Not Available [facility] 3 16:19:26 Prediabete s 298005369 Active 2022 Not Available [facility] 3 16:19:26 Hypertrigl yceridemia 591686866 Active 2022 Not Available [facility] 3 16:19:26 Pain of left wrist 2798328381939 02 Active 2022 Sunita [place], CINTHIA null, [place] [facility] 3 12:06:25 Well controlled type 2 diabetes mellitus 522301820 Active 2022 Naila Reed MD [address], [place], [address] , [facility] 3 17:08:50 Mixed hyperlipid emia 237480252 Active 2022 Naila Reed MD [address], [place], [address] , [facility] - [facility] 3 17:10:04 Low back strain 754792950 Active 2022 King Parker MD [address], [place], [address] , [facility] 3 16:19:54 Gastroesop hageal reflux disease 452209011 Active 2023 King Parker MD [address] [facility] [place] [address], [place], [address] , [facility] 4 15:22:49 Problem Notes Documentation Provider Name and Address Organization Details Recorded Time Endocrinology Note : [facility] [address] [facility], [place] [facility] [address]FVCASV, Erika L (id #[id number], : 1970) Documents sent via [...] received this fax in error, please visit [email or web address] to notify the sender and confirm that the information will be destroyed. If you do not have internet access, please call to notify the sender and confirm that the information will be destroyed. Thank you for your attention and cooperation. [ID:[id number]][facility] [email or web address] [address] [place] [address] , Date: 10/28/2022RE: Alice Vazquez, : 1970, PT ID #[id number] Parker MD, I would like to thank [...] on Metformin 10/28/2022 - 04:00PM - [facility] Endo Antoine Alvarenga Problems:Reviewed Problems Nodular goiter - Onset: [...] Source Auvi-Q 0.3 mg/0.3 mL injection, auto-injectorUSE SAJOKEFG53/27/22 filled MIGRATION.[id number] azelastine 137 mcg (0.1 %) nasal spray aerosolUSE 2 SPRAYS IN EACH NOSTRIL TWICE DAILY12/28/21 filled MIGRATION.[id number] lisinopriL 20 mg tabletTAKE 1 TABLET BY MOUTH EVERY DAY FOR HIGH BLOOD DTUSWOLD54/05/22 filled MIGRATION.[id number] metFORMIN ER 500 mg tablet,extended release 24 hrTAKE 1 TABLET BY MOUTH EVERY DAY AT SPOTDI90/11/23 prescribed Naila Reed MD metoprolol tartrate 25 mg tabletTAKE 1 TABLET BY MOUTH TWICE DAILY07/22/22 renewed King Parker MD Ozempic 0.25 mg or 0.5 mg (2 mg/1.5 mL) subcutaneous pen injectorINJECT 0.5 MG UNDER THE SKIN EVERY WEEK AT TRKQLL76/02/22 filled MIGRATION.[id number] Ozempic 1 mg/dose (4 mg/3 mL) subcutaneous pen injectorInject 1 mg every week by subcutaneous route at dinner for 90 days.10/28/22 prescribed Naila Reed MD sertraline 50 mg tabletTAKE 1 TABLET BY MOUTH EVERY DAY01/22/22 filled MIGRATION.[id number] Synthroid 75 mcg tabletTAKE 1 TABLET BY MOUTH EVERY DAY IN THE WGSEVTG58/22/23 renewed Naila Reed MD Vascepa 1 gram capsuleTake 2 capsule(s) twice a day by oral route before meals for 90 days.12/26/21 filled MIGRATION.[id number] Vitamin D3 25 mcg (1,000 unit) tabletTake 1 tablet 3 times a week by oral route., start started MIGRATION.[id number] [facility] [place] [facility] Family History: Father - Diabetes mellitus - Malignant tumor of stomach Paternal Grandmother [...] Exercise: Infrequently Sexual Hx: Sexually Active 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 Recommended patient to utilize the diabetesGift [employer]point.[employer] from the ADA website to help with [...] subcutaneous route at dinner for 90 days. Qty: (3) 3 mL syringe Refills: 1 Pharmacy: [facility] #[id number] metformin ER 500 mg tablet,extended release 24 hr - TAKE 1 TABLET BY MOUTH EVERY DAY AT DINNER Qty: (90) tablet Refills: 1 Pharmacy: [facility] #[id number] 2. Hypothyroidism-Continue synthroid 75 mcg daily as [...] Office to see King Parker MD at [facility] Internal Med [address] on or around 01/16/2023 CINTHIA Zavaleta [place] - [facility] 10/29/2022 11:08:16 Procedures Surgical History None recorded. Imaging Results Imaging Date Name Status LastModified by [facility]iz [facility] Details LastModified Time 09/18/2022 XR, wrist, 3 or more view completed [email or web address] [facility] (Imaging) [address] [place], [address], 09/18/2022 17:02:14 05/17/2024 biopsy, thyroid (PROC) completed [address] [facility] [address], [place], [address], 05/18/2024 10:07:39 Procedure Notes None recorded. Medical Equipment None [...] Updated DateTime 3 157.48 cm 40.2 kg/m2 96406.3 2 g 96.9 [degF] 87 /min 96 % 96 % 126 mm[Hg] 70 mm[Hg] Vee Williamson MA [facility] [employer] [facility] 3 15:56:11 Date Recorded Body height Body mass index (BMI) Body weight Body temperature Heart rate Systolic blood pressure Diastolic blood pressure Provider Name and Address Organization Details Last Updated DateTime 3 157.48 cm 40.3 kg/m2 311104. 48 g 97.9 [degF] 74 /min 148 mm[Hg] 71 mm[Hg] KIMBERLY Fan [place] [employer] [facility] [employer] [facility] 3 16:49:16 Date Recorded Body height Body mass index (BMI) Body weight Heart rate Body temperature Oxygen saturation Oxygen saturation in Arterial blood by Pulse oximetry Systolic blood pressure Diastolic blood pressure Provider Name and Address Organization Details Last Updated DateTime 3 157.48 cm 39.1 kg/m2 09672.7 7 g 80 /min 97 [degF] 96 % 96 % 120 mm[Hg] 78 mm[Hg] Mona Leonard [employer] [facility] [employer] [facility] 3 15:17:34 Date Recorded Body height Body mass index (BMI) Body weight Heart rate Body temperature Oxygen saturation Oxygen saturation in Arterial blood by Pulse oximetry Systolic blood pressure Diastolic blood pressure Provider Name and Address Organization Details Last Updated DateTime 4 157.48 cm 39.6 kg/m2 74105.7 5 g 86 /min 97 [degF] 92 % 92 % 122 mm[Hg] 84 mm[Hg] Mona Leonard [employer] [facility] [employer] 4 15:23:30 Date Recorded Body height Body mass index (BMI) Body weight Heart rate Body temperature Oxygen saturation Oxygen saturation in Arterial blood by Pulse oximetry Systolic blood pressure Diastolic blood pressure Provider Name and Address Organization Details Last Updated DateTime 4 157.48 cm 39.5 kg/m2 07610.9 5 g 80 /min 97 [degF] 98 % 98 % 118 mm[Hg] 82 mm[Hg] KIMBERLY Sigala [place] - [facility] 14:58:25 Social History Question Answer Notes LastModified by Organizat ion Details LastModified Time Tobacco Smoking Status Never Smoker Not Available [employer] 06/18/2022 01:03:35 What Is Your Level Of Alcohol Consumption? None [id number] Information not available 06/18/2022 What Is Your Level Of Caffeine Consumption? Moderate MIGRATION.[id number] 5252 Information not available 06/18/2022 How Much Tobacco Do You Chew? None MIGRATION.424643 [id number] Information not available 06/18/2022 In The 14 Days Before Symptom Onset, Have You Had Close Contact With A Laboratory-confir med COVID-19 While That Case Was Ill? No MIGRATION.632139 [id number] Information not available 06/18/2022 In The 14 Days Before Symptom Onset, Have You Had Close Contact With A Person Who Is Under Investigation For COVID-19 While That Person Was Ill? No MIGRATION.314369 6317 Information not available 06/18/2022 Which Illicit Or Recreational Drugs Have You Used? None MIGRATION.[id number] Information not available 06/18/2022 Do You Or Have You Ever Used E-cigarettes Or Vape? Never Used Electronic Cigarettes MIGRATION.285439 6245 Information not available 06/18/2022 Do You Or Have You Ever Used Smokeless Tobacco? Never Used Smokeless Tobacco MIGRATION.964267 5836 Information not available 06/18/2022 How Much Tobacco Do You Smoke? No MIGRATION.077790 4818 Information not available 06/18/2022 Have You Recently Traveled Abroad? No MIGRATION.826076 6518 Information not available 06/18/2022 Sex: Female Functional Status None recorded. Mental Status None recorded. Family History Relationship Description Onset Age of this Age Resolved Age Notes LastModified by Organization Details LastModified Time Father Diabetes mellitus MIGRATION.183 [id number] Not available 06/18/2022 01:06:08 Father Malignant tumor of stomach MIGRATION.205 [id number] Not available 06/18/2022 01:06:08 Paternal Grandmother Goiter MIGRATION.012 [id number] Not available 06/18/2022 01:06:08 Notes:Mother Living 68 years old Cholesterol Father Living 71 years old CVA and GB No brothers or sisters Medical History Condition Response NERVE DISEASE N BLADDER PROBLEMS N KIDNEY STONES N DIVERTICULITIS N SLEEP APNEA N CHICKENPOX N OTHER # 1 N POLIO N PROSTATE N Other # 2 N EYE PROBLEMS Y EAR OR HEARING PROBLEMS N CHRONIC PAIN SYNDROME N MUMPS N HYPOTHYROIDISM Y CAROTID BLOCKAGE N CONSTIPATION N BACK / NECK PROBLEMS N BOWEL PROBLEMS N ATHEROSCLEROSIS N ULCERS N MEASLES [...] N CARDIAC ARRHYTHMIA N ANXIETY DISORDER Y CHRONIC EAR INFECTIONS N Gall Stones N PULMONARY EMBOLISM N BRONCHITIS N FOOT PROBLEM N Gynecological HistoryNo gynecological history recorded. Obstetrics History GPAL:G 0 P 0 0 0 0 Immunizations Vaccine Type Date Status Note Provider Nam e and Address Organization Details Recorded Time Influenza, split virus, quadrivalent, PF 3 completed King Parker MD [address] [facility] [address], [place], [address], [facility] [employer] 01/21/2023 16:48:37 SARS-COV-2 (COVID-19) vaccine, UNSPECIFIED 1 completed Not Available [facility] 08/24/2022 16:19:27 SARS-COV-2 (COVID-19) vaccine, UNSPECIFIED 1 completed Not Available [facility] 08/24/2022 16:19:27 SARS-COV-2 (COVID-19) vaccine, UNSPECIFIED 1 completed Not Available [facility] 08/24/2022 16:19:27 Influenza, split virus, trivalent, preservative 3 completed Not Available [facility] 08/24/2022 16:19:27 Influenza, split virus, quadrivalent, PF 1 completed Not Available [facility] 08/24/2022 16:19:27 Influenza, split virus, quadrivalent, PF 0 completed Not Available [facility] 08/24/2022 16:19:27 Influenza, split virus, quadrivalent, preservative 7 completed Not Available [facility] 08/24/2022 16:19:27 Influenza, split virus, trivalent, PF 4 completed Sunita [place] CMA null, [place] [facility] 01/20/2024 15:44:08 Past Encounters Encounter ID Performer Location Encounter Start Date Encounter Closed Date Diagnosis/Indication Diagnosis SNOMED-CT Code Diagnosis ICD10 Code Diagnosis Note [id number] _ATHENA_M IGRATION_ DEFAULT_1 _1 , 06/28/2020 00:00:00 06/28/2020 11:00:54 [id number] [facility] Internal Med [facility] [address] [address] 07/25/2020 00:00:00 07/25/2020 12:46:51 [id number] [facility] [place] [address] [place] [address] 01/08/2021 00:00:00 01/08/2021 15:33:18 [id number] [facility] Internal Med Abbe coronado [address] [facility] , [facility] [place] [address] 01/15/2021 00:00:00 01/15/2021 16:08:29 [id number] _ATHENA_M IGRATION_ DEFAULT_1 _1 , 06/20/2021 00:00:00 06/20/2021 10:02:53 [id number] [facility] Internal Med [facility] [address] [address] 07/10/2021 00:00:00 07/10/2021 11:49:36 [id number] _ATHENA_M IGRATION_ DEFAULT_1 _1 , 12/26/2021 00:00:00 12/26/2021 10:15:45 [id number] [facility] Internal Med [facility] [address] [address] 01/15/2022 00:00:00 01/15/2022 16:05:23 [id number] King Parker MD [facility] Med [place] [address] [place], [facility] [address] [place] [address] 07/16/2022 15:55:49 07/16/2022 17:52:22 Benign essential hypertension 4840181 I10 Hyperlipidemia 61708387 E78.5 Diabetes zuri gomez without complication 056776689 E11.9 Anxiety disorder 6029379 06 F41.9 Obesity 824432097 E66.9 Hypothyroidism 12618535 E03.9 [id number] Naila Reed MD [facility] Endo Antoine Alvarenga [address] [place] [address] 10/28/2022 16:42:31 10/28/2022 17:33:28 Well controlled type 2 diabetes mellitus 281450178 E11.9 a1c of 6.1% in control- continue on metformin and ozempic 1 mg once weekly for continued glucose control. Discussed carb counting and how to read food labels. Recommende d patient to utilize the diabetesfo [employer] from the ADA website to help with food preparatio n as this presents ideal carb content per meal so this will make carb counting much easier for patient. Recommende d she incorporat e natural insulin gut puller s such as pears, apples, cinnamon, raúl and sweet potatoes to help mobilize her endogenous insulin. Recommende d up to 150 minutes of moderate level activity/e xercise weekly. Hypothyroidism 05201646 E03.9 Continue synthroid 75 mcg daily as thyroid levels in ideal control. Mixed hyperlipidemia 267 870433 E78.2 continue on vascepa for mixed dyslipidem [...] results to the patient. RTC as needed. [id number] King Parker MD [facility] [address], [facility] [address] [place] [address] 01/21/2023 14:41:22 01/21/2023 15:39:46 Administration of influenza vaccine 39824766 Z23 Adult [facility] th examination 413327733 Z00.00 Depression screening 171 472369 Z13.31 Diabetes m ellitus without complication 121478594 E11.9 Benign ess ential hypertension 5789360 I10 Mixed hyperlipidemia 267 602584 E78.2 [id number] King Parker MD [facility] Internal Med [facility] [address] [address] 0 07/22/2023 14:52:30 07/22/2023 15:38:16 Hyperlipidemia 55593749 E78.5 Hypothyroidism 92121590 E03.9 Well contr olled type 2 diabetes mellitus 493373375 E11.9 Benign ess ential hypertension 5579871 I10 Anxiety disorder 3892144 06 F41.9 [id number] King Parker MD [facility] Internal Med [facility] [address] [address] 01/20/2024 14:43:55 01/20/2024 15:30:08 Benign essential hypertension 5137409 I10 Hyperlipidemia 93346233 E78.5 Hypothyroidism 78397528 E03.9 Obesity 789560941 E66.9 Gastroesop hageal reflux disease 285690648 K21.9 Administra tion of influenza vaccine 98323456 Z23 Health Concerns Section Related Observation LastModified by Organization Detai ls LastModified Time None Recorded Concern Status LastModified by Organization Details LastModified Time None Recorded Advance Directives Directive None Recorded Payers Encounter Date Sequence Insurance Name Policy Number Policy Castellano Covered Member ID Castellano Member ID Guarantor Name 07/16/2022 1 [place] 113 Alice L George [id number] Alice L George 10/28/2022 1 [place] 113 Alice L George [id number] Alice L George 01/21/2023 1 [place] 113 Alice L George [id number] Alice L George 07/22/2023 1 [place] 113 Alice L George [id number] Alice L George 01/20/2024 1 [place] [facility] EMPLOYEE PROGRAM (PPO) 113 Alice Vazquez [id number] Alice Vazquez Notes Date Note Type Note Provider Name and Address Organization Details Recorded Time 3 text/html Patient Name: Alice VazquezDate Of Service: Thursday ( 07.16.2022 ): 1970 [...] WeeklyVascepa 1000 MG CAPSULE 4 DailyVaccination and Fvgmytpifnui1792-70 Covid Booster Zqldnl2293-62 Covid Flhchy7515-76 Nlclvkfob7897-49 Irku9161-07 Zostavax (shingles)Surgical HistoryThyroid BiopsyPreventative Testing Confirmed by Our Zoicbck1407/07/2022 ALBUMIN 3.8 G/DL07/07/2022 HAIC 6.1 % 04/18/2022 MAMMOGRAM / COLONOSCOPY ( 3 YEARS ) 04/15/2025Social HistorySOCIAL HISTORY:Does not smoke cigarettes. Drinking Hx: 2 Cups of tea perday, < 6 cans of soft drinks per day.Exercise: InfrequentlySexual Hx: Sexually ActiveOccupation: Office WorkerFamily HistoryFAMILY HISTORY:Mother Living 75 years old CholesterolFather 71 years old neuroendocrine cancer of stomach, CVA and GBNo brothers or sisters King Parker MD [address] [address], [place], [address], [employer] 07/16/2022 16:13:18 3 text/html 52 yo female [...] mg/dLCr normalLFT normal Naila Reed MD [address] [facility], [address] [address], [place], [address], [employer] 10/28/2022 22:09:04 3 text/html Patient Name: Alice VazquezCarroll Of Service: Thursday ( 01.21.2023 ): 1970 [...] non healing lesions. [facility]1 Calculated MB mg%. Average blood [...] WeeklyVascepa 1000 MG CAPSULE 4 DailyVaccination and Ldcpgceiptat6135-84 Ytlllglba4515-90 Zzwlgihzf5264-04 Covid Booster Tbkhrb3189-20 Covid Cgemmc6887-28 Tmxtdkmwd8863-30 Cloy8004-24 Zostavax (shingles)Surgical HistoryThyroid BiopsyPreventative Testing Confirmed by Our Dujikgy9207/07/2022 ALBUMIN 3.8 G/DL07/07/2022 HAIC 6.1 % 04/18/2022 MAMMOGRAM COLONOSCOPY ( 3 YEARS ) 04/15/2025Social HistorySOCIAL HISTORY:Does not smoke cigarettes. Drinking Hx: 2 Cups of tea perday, < 6 cans of soft drinks per day.Exercise: InfrequentlySexual Hx: Sexually ActiveOccupation: Office WorkerFamily HistoryFAMILY HISTORY:Mother Living 75 years old CholesterolFather 71 years old neuroendocrine cancer of stomach, CVA and GBNo brothers or sisters King Parker MD [address] [place] [address], [address] [address], [place], [address], [place] [employer] 01/21/2023 16:48:47 4 text/html Patient Name: Alice Azul CelestinavibhaCarroll Of Service: Thursday ( 01.20.2024 ): 1970 [...] offered to be evaluated and instructed by operations planner on weight loss diet.#5. GERD current on [...] 4 Daily Vaccination and Immunization(X) 2023- INFLUENZA(X) 2011-11 TDAP( ) 2020- COVID PFIZER(X) 2020- COVID BOOSTER PFIZER Surgical Znoefeh6942-15 Thyroid Biopsy Preventative Testing( ) 01/18/2024 Albumin 3.9 G/DL( ) 01/18/2024 HAIC 5.2 %( ) 03/04/2023 Micro Albumin <6.0 MG/L N(X) 04/18/2022 Mammogram 04/18/2023( ) 04/15/2022 Colonoscopy ( 3 Years ) 04/15/2025 Social HistorySOCIAL HISTORY:Does not smoke cigarettes. 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
--- OUTSIDE RECORDS SUMMARY | 2024-06-22 13:46 | XMS_ITS | Clinical Summary ---
Author Organization [facility] Address [address] [facility] [place] [address] Care Team Providers Care District Court Judge Name Role Phone Unavailable Primary Care Provider Unavailabl e Source Comments [facility],non-owned Affiliates and Associated Physician Practices is amultiple site organization consisting of ambulatory clinics and hospital sitesin [place], [place], [place] and [place]. This disclosure is being madepursuant to the Care Everywhere program and may not contain all information available regarding this patient. Last updated 18.[facility] Stop Being Watched Social History Tobacco Use Types Packs/Day Years Used Date Smoking Tobacco: Never Assessed Sex and Gender Information Value Date Recorded Sex Assigned at Not on file Gender Identity Not on file Sexual Orientation Not on file Plan of Treatment Upcoming Encounters Date Type Department Care Team (Late st Contact Info) Description 06/24/2024 1:30 PM SCIENTIFIC RECRUITER Office Visit [facility] [facility], [place] [address] Kevin Melendez MD [address] [place] [address] [place] [address] Health Maintenance Due Date Last Done Comments COLOGUARD (AGES 45-75) - COL ON CA SCREENING 1971 COLON MONITORING 1971 COLONOSCOPY - COLON CA SCREENING 1971 CT COLONOGRAPHY - COLON CA SCREENING 1971 Colorectal Cancer Screening 1971 FIT - COLON CA SCREENING 1971 FLEX SIG - COLON CA SCREENING 1971 LIPID TESTING 1971 MAMMOGRAM 1971 PAP SMEAR 1971 HIV SCREENING 1986 HEPATITIS C SCREENING 05/14/1989 DTAP/TDAP/TD VACCINES (1 - Tdap) 1990 HEPATITIS B VACCINE (1 of 3 - 19+ 3-dose series) 1990 PNEUMOCOCCAL VACCINE 50+ (1 of 1 - PCV) 2021 ZOSTER VACCINE (1 of 2) 2021 COVID-19 VACCINE (1 - 2023-2 5 season) 2023 INFLUENZA VACCINE (#1) 2023 DEPRESSION SCREENING 04/20/2024 HIB VACCINE Aged Out No longer eligi ble based on patient's age to complete this topic HPV VACCINE Aged Out No longer eligi ble based on patient's age to complete this topic MENINGOCOCCAL (Group B) VACCINE Aged Out No longer eligible based on patient's age to complete this topic MENINGOCOCCAL VACCINE Aged Out No sarwat lexus eligible based on patient's age to complete this topic Alice Vazquez Personal/Family Self 1970
--- OUTSIDE RECORDS SUMMARY | 2024-06-22 13:46 | XMS_ITS | Patient Health Summary ---
Author Organization [facility] Address [address] [facility] [place] [address] Care Team Providers Care High School Science Tutor Name Role Phone Unavailable Primary Care Provider Unavailabl e Note from [facility],non-owned Affiliates and Associated Physician Practices is amultiple site organization consisting of ambulatory clinics and hospital sitesin [place], [place], [place] and [place]. This disclosure is being madepursuant to the Care Everywhere program and may not contain all information available regarding this patient. Last updated 18.[facility] Social History Tobacco Use Types Packs/Day Years Used Date Smoking Tobacco: Never Assessed Sex and Gender Information Value Date Recorded Sex Assigned at Not on file Gender Identity Not on file Sexual Orientation Not on file
== END 2024-06-22 12:21 | disposition home or self-care (01) ==
LOC: ANHSURGERY 12:26
PROVIDERS: Anesthesiology; PCP Nurse Practitioner; Visit Provider Obstetrics & Gynecology Gynecology
DX: E11.9 Type 2 diabetes mellitus without complications (principal)
CPT/HCPCS: 36415; 80048

== ENCOUNTER 2024-06-27 00:46 | Day surgery (SDC) | payer BC, SELFPAY ==
[2024-06-15 17:41] VITALS: BMI 40.2
--- NOTE | 2024-06-15 17:47 | SUR.PREOP ---
Report to the Outpatient Waiting Room, entrance under the green pavilion located off [facility], at time 0830 on date _06/27/24_. Planned Procedure Time: 1030.? Time changes happen often and if your time is changed the preop area will call you the afternoon before. - You and your visitor will be asked to self-screen and do not enter if you have any COVID symptoms. Please call surgeon if you need to reschedule. - A mask is optional within the hospital at this time. Patients may have clear liquids (water, carbonated beverages, clear teas, apple juice) until 3 hours prior to surgery with a maximum of 20 ounces. - No food from midnight until time of surgery and no smoking, or chewing tobacco (or any form of nicotine). No chewing gum, candy or mints. - Infants may have breast milk until 4 hours before surgery, formula 6 hours prior to surgery. - Children will be allowed to drink immediately following surgery.? If applicable, please bring a bottle or sippy cup to assist with drinking. Juice, water, soda, and popsicles are readily available.? For infants on formula, please bring formula the day of surgery.? Pacifiers are allowed. Take only the following medications with a SIP of water on the morning of surgery: __sertaline, synthroid DO NOT STOP ANY OF YOUR OTHER PRESCRIPTION MEDICATIONS PRIOR TO SURGERY EXCEPT THE FOLLOWING Hold all vitamins and supplements for 3 days per anesthesiologist. Medications to discontinue per physician n/a Date to take last dose Please no make-up, nail south sudanese, hairspray, perfume, deodorant, or body powder the day of surgery.? No jewelry (including any body piercings) or valuables the day of surgery, leave them at home.? Please take a shower or bath the night before, or the morning of, surgery with an antibacterial soap.? Wear comfortable, loose fitting clothing.? Children are encouraged to wear pajamas. - Jewelry must be removed prior to entering the operating room.? Rings and piercings that are not removed may be cut off. - The hospital will not accept responsibility for valuables.? - Please leave all valuables, including medications, at home the day of surgery. If you are going home after surgery, a licensed motor coach driver must drive you home.? - NO public transportation without another adult if you receive anesthesia. - We recommend that an adult stay with you for 24 hours following discharge. - We also recommend that you do not drive, make important decision, drink alcoholic beverages, or take any drugs that were not prescribed by your health care provider for at least 24 hours after your discharge time. For Pediatric surgeries, we recommend two adults accompany the child home. Follow any additional instructions given to you from your surgeon. Telephone instructions given to _patient_and asked if any additional questions and then verbalized understanding. Patient advised to call surgeon office or pre surgery nurse liaison [phone] if any additional questions.
--- OUTSIDE RECORDS SUMMARY | 2024-06-27 00:50 | XMS_ITS ---
Author Organization [facility] Address [address] [place] [address] Care Team Providers Care Trimmer Hand Name Role Phone Gautam Parker MD Primary Care Provider Marcia Watson Unavailable [phone] REASON FOR VISIT SCIT - Traditional Schedule Allergy immunotherapy Medications Medication SIG (Take, Route, Frequency, Duration) Notes Start Date End Date Status SIT (TRADITIONAL) variable per schedule SC per schedule for to be determined Active Encounters Encounter Location Date Provider Diagnosis [facility] [address] [place] [address] 04/11/2024 Marcia Wade Allergic rhinitis du e [...] Provider Name:Marcia brown, 07/04/2024 09:00:00 AM, [address], [place], [address], Progress Notes * Arik VAZQUEZ:1970 (53 yo F)Acc No.[id number]:04/11/2024 SCIT-Aeroallergen Patient: Alice SUNSHINE Provider: Lolita Wade MD :1970 A ge:53 Y S ex:Female Date:04/11/2024 Address:[address] [place], [place] [address] Pcp:Gautam Pakrer MD Subjective: * Chief Complaints: * S [...] Information: * Visit Code: * Procedure Codes: 86778 IMMUNOTHERAPY INJECTIONS. * CAL RECORDS CODER Sign off status: Completed true * Provider: Lolita Wade MD Date: 06/12/2023 Generated for Kodii marlene/Margie/eTransmitting on: 0 06/27/2024 12:49 AM CDT History and Physical Notes * HPI (History [...]
--- OUTSIDE RECORDS SUMMARY | 2024-06-27 00:50 | XMS_ITS | Clinical Summary ---
Author Organization [facility] Address [address] [place] [address] Care Team Providers Care Rn Hedis Name Role Phone Unavailable Primary Care Provider Unavailabl e Immunizations Immunization Administration Dates Next Due Covid-19, Mrna, Lnp-s, Pf, 30 Mcg/0.3 Ml Dose (P fizer) 03/12/2021 Social History Tobacco Use Types Packs/Day Years Used Date Smoking Tobacco: Never Assessed Comments Unknown Sex and Gender Information Value Date Recorded Sex Assigned at Not on file Legal Sex Female 5:30 PM CLAIMS SPECIALIST Gender Identity Not on file Sexual Orientation [...]
--- OUTSIDE RECORDS SUMMARY | 2024-06-27 00:50 | XMS_ITS | Clinical Summary ---
Author Organization [facility] [employer] Address [address] [facility] [place] [address] Care Team Providers Care Fraternity House Cook Name Role Phone Unknown, Provider Primary Care Provider Unavaila ble Source Comments [facility],non-owned Affiliates and Associated Physician Practices is amultiple site organization consisting of ambulatory clinics and hospital sitesin [place], [place], [place] and [place]. This disclosure is being madepursuant to the Care Everywhere program and may not contain all information available regarding this patient. Last updated 18.[employer] Allergies No known active allergies Medications * Be aware that medications may not be up to date on this document. Alwaysverify current medications with the patient. Medication Sig Dispensed Refills Start Date End Date Status EPINEPHrine (Epipen) 0.3 MG/0.3ML auto-injector pen Inject 0.3 mL into muscle once as needed Active icosapent ethyl (Vascepa) 1 g capsule Take 2 (two) capsules by mouth 2 times daily Active Synthroid 75 MCG tablet Take 1 (one) tablet by mouth once daily Active lisinopril (Prinivil; Zestril) 20 MG tablet Take 1 (one) tablet by mouth once daily Active metFORMIN ER 24hr (Glucophage XR) 500 MG tablet Take 1 (one) tablet by mouth once daily Active metoprolol tartrate IR (Lopressor) 25 MG tablet Take 1 (one) tablet by mouth once daily Active sertraline (Zoloft) 50 MG tablet Take 1 (one) tablet by mouth once daily 04/18/2024 Active Encounters Date Type Department Care Team Description 06/24/2024 1:30 PM HOME ECONOMIST Office Visit [facility] [address] [place] [address] Kevin Melendez MD Arrived 06/24/2024 Travel from Last 3 Months Immunizations Name Administration Dates Next Due INFLUENZA VACCINE, TRIV. (AF LURIA, FLUZONE TRIVALENT; 6MO+) (IIV3) 01/26/2013 FLU VACCINE QUAD IIV4 SPLIT 0.25 ML IM 02/09/2017 FLU VACCINE TRI IIV3 SPLIT P F IM (FLUVIRIN) 01/20/2024,03/21/2015 INFLUENZA VACCINE 02/08/2014 INFLUENZA VACCINE, QUADR. (F LUZONE; FLULAVAL; FLUARIX; AFLURIA QUADRIVALENT; 6MO+), 0.5 ML (IIV4) 01/21/2023,02/25/2021,01/25/2020, 018 Social History Tobacco Use Types Packs/Day Years Used Date Smoking Tobacco: Never Smokeless Tobacco: Never Tobacco Cessation:Counseling Given: Not Answered Alcohol Use Standard Drinks/Week Comments Not Currently 0 (1 standard drink = 0.6 oz pur e alcohol) Sex and Gender Information Value Date Recorded Sex Assigned at Not on file Gender Identity Not on file Sexual Orientation Not on file Last Filed Vital Signs Vital Sign Reading Time Taken Comments Blood Pressure 176/85 06/24/2024 1:19 PM HOME ECONOMIST Pulse 112 06/24/2024 1:19 PM HOME ECONOMIST Temperature - - Respiratory Rate - - Oxygen Saturation - - Inhaled Oxygen Concentration - - Weight 101.6 kg (224 lb) 06/24/2024 1:19 PM HOME ECONOMIST Height - - Body Mass Index - - Plan of Treatment Health Maintenance Due Date Last Done Comments COLOGUARD (AGES 45-75) - COLON CA SCREENING 1971 COLON MONITORING 1971 COLONOSCOPY [...] VACCINE (1 of 2) 2021 COVID-19 VACCINE (2 - season) 2023 03/12/2021 DEPRESSION SCREENING 04/20/2024 INFLUENZA VACCINE Completed 01/20/2024, , 02/25/2021, Additional history exists HIB VACCINE Aged Out No longer eligi [...] on patient's age to complete this topic Care Teams Fraternity House Cook Relationship Specialty Start Date End Date Unknown, Provider PCP - General 06/24/24
--- OUTSIDE RECORDS SUMMARY | 2024-06-27 00:50 | XMS_ITS | Patient Health Summary ---
Author Organization [facility] Address [address] [facility] [place] [address] Care Team Providers Care Dermatologist And Dermatopathologist Name Role Phone Unknown, Provider Primary Care Provider Unavaila ble Note from [facility],non-owned Affiliates and Associated Physician Practices is amultiple site organization consisting of ambulatory clinics and hospital sitesin [place], [place], [place] and [place]. This disclosure is being madepursuant to the Care Everywhere program and may not contain all information available regarding this patient. Last updated 18.[facility] Allergies No known active allergies Medications * Be aware that medications may not be up to date on this document. Alwaysverify current medications with the patient. * EPINEPHrine (Epipen) 0.3 MG/0.3ML auto-injector pen Inject 0.3 mL into muscle once as needed * icosapent ethyl (Vascepa) 1 g capsule Take 2 (two) capsules by mouth 2 times daily * Synthroid 75 MCG tablet Take 1 (one) tablet by mouth once daily * lisinopril (Prinivil; Zestril) 20 MG tablet Take 1 (one) tablet by mouth once daily * metFORMIN ER 24hr (Glucophage XR) 500 MG tablet Take 1 (one) tablet by mouth once daily * metoprolol tartrate IR (Lopressor) 25 MG tablet Take 1 (one) tablet by mouth once daily * sertraline (Zoloft) 50 MG tablet(Started 04/18/2024) Take 1 (one) tablet by mouth once daily Immunizations * INFLUENZA VACCINE, TRIV. (AFLURIA, FLUZONE TRIVALENT; 6MO+) (IIV3)(Given 01/26/2013) * FLU VACCINE QUAD IIV4 SPLIT 0.25 ML IM(Given 02/09/2017) * FLU VACCINE TRI IIV3 SPLIT PF IM (FLUVIRIN)(Given 01/20/2024, 03/21/2015) * INFLUENZA VACCINE(Given 02/08/2014) * INFLUENZA VACCINE, QUADR. (FLUZONE; FLULAVAL; FLUARIX; AFLURIA QUADRIVALENT; 6MO+), 0.5 ML (IIV4)(Given 01/21/2023, 02/25/2021, 01/25/2020, 02/11/2018) Social History Tobacco Use Types Packs/Day Years [...] Comments Blood Pressure 176/85 06/24/2024 1:19 PM APPOINTMENT CLERK Pulse 112 06/24/2024 1:19 PM APPOINTMENT CLERK Temperature - - Respiratory Rate - - Oxygen Saturation - - Inhaled Oxygen Concentration - - Weight 101.6 kg (224 lb) 06/24/2024 1:19 PM APPOINTMENT CLERK Height - - Body Mass Index - - Care Teams Dermatologist And Dermatopathologist Relationship Specialty Start Date End Date Unknown, Provider PCP - General 06/24/24
--- OUTSIDE RECORDS SUMMARY | 2024-06-27 00:50 | XMS_ITS | Patient Health Record ---
Author Organization [facility] Address [address] [place] [address] Care Team Providers [employer] Name Role Phone Gautam Parker MD Primary Care Provider Marcia Watson Unavailable [phone] [employer], Provider Unavailable Unavailab le Allergies No Known Allergies Reason For Referral No Information Medications Medication SIG (Take, Route, Frequency, Duration) Notes Start Date End Date Status Synthroid 50 MCG 1 tab(s) orally Qday Active AZELASTINE HYDROCHLORIDE NASAL 137 mcg/inh 2 spray(s) intranasally 2 times a day for 30 day(s) Active Lisinopril 20 MG 1 tab(s) orally Qday Active AUVI -Q 0.3 mg as directed intramuscularly once for 1 days Active Metoprolol Tartrate 100 MG 1 tab(s) orally Qday Active METOPROLOL TARTRATE 100 mg 1 tab(s) orally Qday Active SYNTHROID 50 mcg (0.05 mg) 1 tab(s) orally Qday Active Auvi-Q 0.3 MG/0.3ML as directed once intramuscularly 30 day(s) for 30 Active AUVI-Q 0.3 mg as directed once intramuscularly 30 day(s) for 30 Active LISINOPRIL 20 mg 1 tab(s) orally Qday Active Levocetirizine Dihydrochloride 5 MG 1 tab(s) orally once a day (in the evening) for 30 day(s) Active Azelastine HCl 137 MCG/SPRAY 2 spray(s) intranasally 2 times a day for 90 days Active AZELASTINE HYDROCHLORIDE NASAL 137 mcg/inh 2 spray(s) intranasally 2 times a day for 90 days Active Azelastine HCl 137 MCG/SPRAY 2 spray(s) intranasally 2 times a day for 30 day(s) Active Auvi-Q 0.3 MG/0.3ML as directed intramuscularly once for 1 days Active LEVOCETIRIZINE DIHYDROCHLORIDE 5 mg 1 tab(s) orally once a day (in the evening) for 30 day(s) Active SIT (TRADITIONAL) variable per schedule SC per schedule for to be determined Active Immunizations Vaccine Route Administration Date Status Comme nts Influenza Unknown 01/25/2019 Administered Portal Infor matmicheline NOC Flucelevax Quadrivalent Unknown 04/21/2020 Administered Social History Tobacco Use: Social History Observation Description Date Details (start date - stop date) Never Smoker NA - NA Smoking Smart Form: Question Answer Notes Are you a: never smoker Problems Problem Type SNOMED Code ICD Code Onset Dates Problem Status W/U Status Risk Notes Problem Chronic allergic conjunctivitis (15924000) Other chronic allergic conjunctivitis (H10.45) Active confirmed Problem Allergic rhinitis caused by pollen (disorder) (64588280) Allergic rhinitis due to pollen (J30.1) Active confirmed Problem Allergic rhinitis (30957762) Other allergic rhinitis (J30.89) Active confirmed Problem Cough (78298906) Cough (R05) Active confirmed Problem Allergic rhinitis caused by pollen (disorder) (32409492) Allergic rhinitis due to pollen (J30.1) Active confirmed Problem Allergic rhinitis caused by animal hair and dander (489623571444290) Allergic rhinitis due to animal (cat) (dog) hair and dander (J30.81) Active confirmed Problem Allergic rhinitis (97889437) Other allergic rhinitis (J30.89) Active confirmed Problem Chronic allergic conjunctivitis (01684792) Other chronic allergic conjunctivitis (H10.45) Active confirmed Problem Essential hypertension (42832504) Essential (primary) hypertension (I10) Active confirmed Encounters Encounter Location Date Provider Diagnosis [facility] [address] [place] [address] 10/03/2023 Provider [employer] Allergic rhinitis due to pollen J30.1 [facility] [address] [facility] [address] [place] [address] 07/14/2023 Marcia Wade Allergic rhinitis du e to pollen J30.1 ; Other allergic rhinitis J30.89 and Other chronic allergic conjunctivitis H10.45 [facility] [address] [facility] [address] [place] [phone] 08/11/2023 Marcia Mauro Allergic rhinitis du e to pollen J30.1 ; Other allergic rhinitis J30.89 and Other chronic allergic conjunctivitis H10.45 [facility] [address] [facility] [address] [place] [phone] 09/08/2023 Marcia Mauro Allergic rhinitis du e to pollen J30.1 ; Other allergic rhinitis J30.89 and Other chronic allergic conjunctivitis H10.45 [facility] [address] [facility] [address] [place] [phone] 10/06/2023 Marcia Mauro Allergic rhinitis du e to pollen J30.1 ; Other allergic rhinitis J30.89 and Other chronic allergic conjunctivitis H10.45 [facility] [address] [place], [place] [address] [address] [place] [phone] 11/03/2023 Marcialuis Kunzm Allergic rhinitis du e to pollen J30.1 ; Other allergic rhinitis J30.89 and Other chronic allergic conjunctivitis H10.45 [facility] [address] [place], [place] [address] [address] [place] [phone] 12/01/2023 Marcialuis Kunzm Allergic rhinitis du e to pollen J30.1 ; Other allergic rhinitis J30.89 and Other chronic allergic conjunctivitis H10.45 [facility] [address] [place], [place] [address] [address] [place] [phone] 01/05/2024 Marcia Kunzm Allergic rhinitis du e to pollen J30.1 ; Other allergic rhinitis J30.89 and Other chronic allergic conjunctivitis H10.45 [facility] [address] [place] [phone] 02/02/2024 Marcia Mauro Allergic rhinitis du e to pollen J30.1 ; Other allergic rhinitis J30.89 and Other chronic allergic conjunctivitis H10.45 [facility] [employer] [address] [place] [phone] 03/01/2024 Marcia Mauro Allergic rhinitis du e to pollen J30.1 ; Other allergic rhinitis J30.89 and Other chronic allergic conjunctivitis H10.45 [facility] [address] [place] [address] [employer] [address] [phone] 03/29/2024 Marcia Mauro Allergic rhinitis du e to pollen J30.1 ; Other allergic rhinitis J30.89 and Other chronic allergic conjunctivitis H10.45 [facility] [address] [place] [phone] 04/05/2024 Marcia Mauro Allergic rhinitis du e to pollen J30.1 ; Other allergic rhinitis J30.89 and Other chronic allergic conjunctivitis H10.45 [facility] [address] [place] [phone] 04/11/2024 Marcialuis Kunzm Allergic rhinitis du e to pollen J30.1 ; Other allergic rhinitis J30.89 and Other chronic allergic conjunctivitis H10.45 [facility] [address] [place] [phone] 05/09/2024 Marcia Mauro Allergic rhinitis du e to pollen J30.1 ; Other allergic rhinitis J30.89 and Other chronic allergic conjunctivitis H10.45 [facility] [address] [place] [phone] 06/06/2024 Marcialuis Kunzm Allergic rhinitis du e to pollen J30.1 ; Other allergic rhinitis J30.89 and Other chronic allergic conjunctivitis H10.45 Assessments Encounter Date Diagnosis (ICD Code) Assessment Notes Treatment Notes Treatment Clinical Notes Section Notes 07/14/2023 Allergic rhinitis due to pollen (ICD-10 - J30.1) 07/14/2023 Other allergic rhinitis (ICD-10 - J30.89) 09/08/2023 Allergic rhinitis due to pollen (ICD-10 - J30.1) 09/08/2023 Other allergic rhinitis (ICD-10 - J30.89) 10/03/2023 Allergic rhinitis due to pollen (ICD-10 - J30.1) 08/11/2023 Allergic rhinitis due to pollen (ICD-10 - J30.1) 08/11/2023 Other allergic rhinitis (ICD-10 - J30.89) 10/06/2023 Allergic rhinitis due to pollen (ICD-10 - J30.1) 10/06/2023 Other allergic rhinitis (ICD-10 - J30.89) 11/03/2023 Allergic rhinitis due to pollen (ICD-10 - J30.1) 11/03/2023 Other allergic rhinitis (ICD-10 - J30.89) 12/01/2023 Allergic rhinitis due to pollen (ICD-10 - J30.1) 12/01/2023 Other allergic rhinitis (ICD-10 - J30.89) 02/02/2024 Allergic rhinitis due to pollen (ICD-10 - J30.1) 02/02/2024 Other allergic rhinitis (ICD-10 - J30.89) 03/01/2024 Allergic rhinitis due to pollen (ICD-10 - J30.1) 03/01/2024 Other allergic rhinitis (ICD-10 - J30.89) 04/05/2024 Allergic rhinitis due to pollen (ICD-10 - J30.1) 04/05/2024 Other allergic rhinitis (ICD-10 - J30.89) 04/11/2024 Allergic rhinitis due to pollen (ICD-10 - J30.1) 04/11/2024 Other allergic rhinitis (ICD-10 - J30.89) 06/06/2024 Allergic rhinitis due to pollen (ICD-10 - J30.1) 06/06/2024 Other allergic rhinitis (ICD-10 - J30.89) 05/09/2024 Allergic rhinitis due to pollen (ICD-10 - J30.1) 05/09/2024 Other allergic rhinitis (ICD-10 - J30.89) 03/29/2024 Allergic rhinitis due to pollen (ICD-10 - J30.1) 03/29/2024 Other allergic rhinitis (ICD-10 - J30.89) 01/05/2024 Allergic rhinitis due to pollen (ICD-10 - J30.1) 01/05/2024 Other allergic rhinitis (ICD-10 - J30.89) 01/05/2024 Other chronic allergic conjunctivitis (ICD-10 - H10.45) 03/29/2024 Other chronic allergic conjunctivitis (ICD-10 - H10.45) 05/09/2024 Other chronic allergic conjunctivitis (ICD-10 - H10.45) 06/06/2024 Other chronic allergic conjunctivitis (ICD-10 - H10.45) 04/11/2024 Other chronic allergic conjunctivitis (ICD-10 - H10.45) 04/05/2024 Other chronic allergic conjunctivitis (ICD-10 - H10.45) 03/01/2024 Other chronic allergic conjunctivitis (ICD-10 - H10.45) 02/02/2024 Other chronic allergic conjunctivitis (ICD-10 - H10.45) 12/01/2023 Other chronic allergic conjunctivitis (ICD-10 - H10.45) 11/03/2023 Other chronic allergic conjunctivitis (ICD-10 - H10.45) 09/08/2023 Other chronic allergic conjunctivitis (ICD-10 - H10.45) 10/06/2023 Other chronic allergic conjunctivitis (ICD-10 - H10.45) 08/11/2023 Other chronic allergic conjunctivitis (ICD-10 - H10.45) 07/14/2023 Other chronic allergic conjunctivitis (ICD-10 - H10.45) Plan Of Treatment Next Appt Details Provider Name:Marcia brown, 07/04/2024 09:00:00 AM, [address] [facility], [address], [address], Insurance Providers Payer Name Payer Address Payer Phone Subscriber Number Group Number Insured Name Patient Relationship to Insured Coverage Start Date Coverage End Date [facility] [address] [place] [address] [id number] Alice Vazquez Self - patient is the insured 9 Medical (General) History Medical History History ICD Code Essential (primary) hypertension I10 Allergic rhinitis due to pollen J30.1 Other allergic rhinitis J30.89 Surgical History Surgery Date(Month/Year) Hospitalization History Reason Date(Month/Year) syncope after experiencing j aw pain and thought related to BP medications
--- OUTSIDE RECORDS SUMMARY | 2024-06-27 00:50 | XMS_ITS | Data Portability ---
Author Organization [facility] [employer], Main Office Address [address] [place] [address] Care Team Providers Care Document Design Specialist Name Role Phone KING PARKER Primary Care Provider [phone] Assessment No assessment recorded. Plan of Treatment Reminders Order Date Submit Date Provider Last Modified By Organization Details Last Modified Time Details Appointments None recorded. Lab glycohemogl obin, total, blood 2023 024 [email or web address] [facility] (Lab), [address] [place], [address], 4 17:32:07 TSH, serum or plasma 2023 024 [email or web address] [facility] (Lab), [address] [place], [address], 4 17:32:07 T4, free, serum 2023 024 [email or web address] [facility] (Lab), [address] [place], [address], 4 17:32:07 lipid panel, serum 2023 024 [email or web address] [facility] (Lab), [address] [place], [address], 4 17:32:06 CMP, serum or plasma 2023 024 [email or web address] [facility] (Lab), [address] [place], [address], 4 17:32:07 CBC w/ auto diff 04/03/ 2024 04/03/2 024 [email or web address] [facility] (Lab), [address] [place], [address], 4 17:32:06 HbA1c (hemoglobin A1c), blood 2022 023 [id number] [facility] (Lab), [address] [place], [address], 3 09:58:32 microalbumi n/creatinin e, mass ratio, urine 2022 023 [email or web address] [facility] (Lab), [address] [place], [address], 3 09:58:32 CBC w/ auto diff [id number] [place] [address] (Lab), [address] [place], [address], 3 09:58:31 CMP, serum or plasma [id number] [place] [address] (Lab), [address] [place], [address], 3 09:58:31 lipid panel, serum [id number] [place] [address] (Lab), [address] [place], [address], 3 09:58:31 T4, free, serum [id number] [place] [address] (Lab), [address] [place], [address], 3 09:58:31 TSH, serum or plasma [email or web address] [place] [address] (Lab), [address] [place], [address], 3 09:58:32 lipid panel, serum [address] (Lab), [address] [place], [address], 3 10:10:44 glycohemogl obin, total, blood 2022 023 [facility] (Lab), [address] [place], [address], 3 13:33:04 microalbumi n/creatinin e, ratio, urine 2022 023 [facility] (Lab), [address] [place], [address], 3 13:08:05 CMP, serum or plasma [address] (Lab), [address] [place], [address], 3 17:10:52 TSH, serum or plasma [address] (Lab), [address] [place], [address], 3 17:10:52 T4, free, serum [address] (Lab), [address] [place], [address], 3 17:10:52 Referral None recorded. Procedures None recorded. Surgeries None recorded. Imaging None recorded. Medication Orders Ozempic 1 mg/dose (4 mg/3 mL) subcutaneou s pen injector 2022 023 [id number], [address] [facility] [place], [place], [id number], 3 17:10:02 metformin ER 500 mg tablet,exte nded release 24 hr 2022 023 [id number], [address], [place], [place], [id number], 17:10:32 Patient TargetsNo targets recorded. Patient Instructions Encounter Date Encounter Id Patient Instructions Last Modified By Organization Details Last Modified Time 07/16/2022 [id number] Follow-up hypertension -hyperlipidemia - type 2 diabetes-anxiety disorder -obesity -of hypothyroidism all clinically stable. Has had recent blood work performed by endocrinology. Will continue with current Rx at this time. Follow-up in six months [email or web address] Not available 07/16/2022 16:12:56 01/21/2023 [id number] risk assessment* [email or web address] Not availabl e 01/21/2023 15:35:59 INFLUENZA VACCIN [...] SCREENING Not indicated GLUCOSE SCREENING LIPID SCREENING [email or web address] Not available 01/21/2023 15:24:38 Well patient evaluation [...] Next Appt: 6 Months Approximate Date: 07/20/2023 [email or web address] Not available 01/21/2023 15:35:41 07/22/2023 [id number] Follow-up hypertension, hyperlipidemia, hypothyroidism, type 2 diabetes [...] recognize, using context, where substitutions have occurred. [email or web address] Not available 07/22/2023 15:34:03 01/20/2024 [id number] Follow-up essent ial hypertension, hyperlipidemia, hypothyroidism, obesity [...] recognize, using context, where substitutions have occurred. [email or web address] Not available 01/20/2024 15:26:20 Reason for Referral None Reported. Results Created Date Observation Date Name Description Value Unit Range Abnormal Flag Note LastModifiedBy Organization Detail LastModifiedTime 07/08/19 23 07/07/2022 COMPR EHENS IESHA METAB OLIC PANEL sodium 136 mmol/ L 137-14 5 low Not Available [facility] (Lab) [address] [place], [address], 07/07/2022 14:23:55 07/08/19 23 07/07/2022 COMPR EHENS IESHA METAB OLIC PANEL potassium 4.1 mmol/ L 3.5-5. 1 Not Available [facility] (Lab) [address] [place], [address], 07/07/2022 14:23:55 07/08/19 23 07/07/2022 COMPR EHENS IESHA METAB OLIC PANEL chloride 104 mmol/ L 98-107 Not Available [facility] (Lab) [address] [place], [address], 07/07/2022 14:23:55 07/08/19 23 07/07/2022 COMPR EHENS IESHA METAB OLIC PANEL carbon dioxide 25 mmol/ L 22-30 Not Available [facility] (Lab) [address] [place], [address], 07/07/2022 14:23:55 07/08/19 23 07/07/2022 COMPR EHENS IESHA METAB OLIC PANEL anion gap 11.1 mmol/ L 14-22 low Not Available [facility] (Lab) [address] [place], [address], 07/07/2022 14:23:55 07/08/19 23 07/07/2022 COMPR EHENS IESHA METAB OLIC PANEL glucose 90 mg/dL 70-99 Not Available [facility] (Lab) [address] [place], [address], 07/07/2022 14:23:55 07/08/19 23 07/07/2022 COMPR EHENS IESHA METAB OLIC PANEL BUN 12 mg/dL 8-19 Not Available [facility] (Lab) [address] [place], [address], 07/07/2022 14:23:55 07/08/19 23 07/07/2022 COMPR EHENS IESHA METAB OLIC PANEL creatinine 0.77 mg/dL 0.66-1 .25 Not Available [facility] (Lab) [address] [place], [address], 07/07/2022 14:23:55 07/08/1907/07/2022 COMPR EHENS IESHA METAB OLIC PANEL GFR >60 Refer ence Range : [place] GFR Healt hy Adult : >60 [...] or ethni c subgr oups, such as Hisvt nics. Outsi de the valid ated richie [...] calcu lator is avail able on the [facility] websi te: https ://rosalva [email or web address].vanita rg/pr eveliaess ional s/kdo qi/gf r_cal culat or Not Available [facility] (Lab) [address] [place], [address], 07/07/2022 14:23:55 07/08/1907/07/2022 COMPR EHENS IESHA METAB OLIC PANEL alkaline phosphatase 65 U/L 38-126 Not Available [facility] (Lab) [address] [place], [address], 07/07/2022 14:23:55 07/08/19 23 07/07/2022 COMPR EHENS IESHA METAB OLIC PANEL alanine aminotransfe rase 27 U/L 0-35 Not Available [facility] (Lab) [address] [place], [address], 07/07/2022 14:23:55 07/08/19 23 07/07/2022 COMPR EHENS IESHA METAB OLIC PANEL aspartate aminotransfe rase 26 U/L 15-37 Not Available [facility] (Lab) [address] [place], [address], 07/07/2022 14:23:55 07/08/19 23 07/07/2022 COMPR EHENS IESHA METAB OLIC PANEL bilirubin, total 0.40 mg/dL 0.20-1 .30 Not Available [facility] (Lab) [address] [place], [address], 07/07/2022 14:23:55 07/08/19 23 07/07/2022 COMPR EHENS IESHA METAB OLIC PANEL calcium 8.8 mg/dL 8.4-10 .2 Not Available [facility] (Lab) [address] [place], [address], 07/07/2022 14:23:55 07/08/19 23 07/07/2022 COMPR EHENS IESHA METAB OLIC PANEL total protein 6.9 g/dL 6.3-8. 2 Not Available [facility] (Lab) [address] [place], [address], 07/07/2022 14:23:55 07/08/19 23 07/07/2022 COMPR EHENS IESHA METAB OLIC PANEL albumin 3.8 g/dL 3.4-5. 0 Not Available [facility] (Lab) [address] [place], [address], 07/07/2022 14:23:55 07/08/19 23 07/07/2022 COMPR EHENS IESHA METAB OLIC PANEL globulin 3.1 g/dL 2.6-4. 2 Not Available [facility] (Lab) [address] [place], [address], 07/07/2022 14:23:55 07/08/19 23 07/07/2022 COMPR EHENS IESHA METAB OLIC PANEL A/G ratio 1.2 ratio 1.0-2. 0 Not Available [facility] (Lab) [address] [place], [address], 07/07/2022 14:23:55 07/08/19 23 07/07/2022 LIPID PANEL cholesterol 184 mg/dL 140-19 9 NIH SURAJ NSUS RECOM MENDA TION FOR ESTEBAN STERO L: ADULT CHILD LOW RISK: <200 <170 BORDE RLINE : <200- 239 ----- HIGH RISK: >240 >200 Not Available [facility] (Lab) [address] [place], [address], 07/07/2022 14:23:59 07/08/19 23 07/07/2022 LIPID PANEL triglyceride s 270 mg/dL 0-150 high NIH SURAJ NSUS REPOR T RECOM MENDA TION FOR TRIGL YCERI LLUVIA: ADULT CHILD LOW RISK: <150 ----- BODER LINE: 150-1 99 ----- HIGH RISK: >200 ----- Not Available [facility] (Lab) [address] [place], [address], 07/07/2022 14:23:59 07/08/19 23 07/07/2022 LIPID PANEL HDL cholesterol 38 mg/dL 40- low Not Available [facility] (Lab) [address] [place], [address], 07/07/2022 14:23:59 07/08/19 23 07/07/2022 LIPID PANEL [...] WILL NOT BE REPOR ADRYAN. Not Available [facility] (Lab) [address] [place], [address], 07/07/2022 14:23:59 07/08/19 23 07/07/2022 T3 FREE free T3 3.1 pg/mL 2.77-5 .27 Not Available [facility] (Lab) [address] [place], [address], 07/07/2022 14:45:41 07/08/19 23 07/07/2022 T4 FREE free T4 0.90 NG/dL 0.78-2 .19 Not Available [facility] (Lab) [address] [place], [address], 07/07/2022 14:45:47 07/08/19 23 07/07/2022 TSH thyroid-stim ulating hormone 2.160 uIU/m L 0.465- 4.680 Not Available [facility] (Lab) [address] [place], [address], 07/07/2022 14:47:33 07/08/19 23 07/07/2022 HEMOG LOBIN A1C HA1C 6.1 % 4.0-6. 0 high Diabe teresa Scree radha Crite aiden: <5.7% Consi stent with absen ce of diabe teresa 5.7-6 .4% Consi stent with incre ased risk for diabe teresa (pred iabet es) >OR=6 .5% Consi stent with diabe teresa REFER ENCE: Diabe teresa Care 2016, 39(Lee ppl.1 ):s13 -s22 Not Available [facility] (Lab) [address] [place], [address], 07/07/2022 15:03:47 07/08/19 23 07/08/2022 INSUL IN insulin 32.1 uIU/m L 2.6-24 .9 high Perfo rmed at: [facility] [address] [facility], [place] [address] 126 Lab Direc tor: Reginald aguilar PhD, Phone : [phone] Not Available [facility] (Lab) [address] [place], [address], 07/08/2022 10:13:25 03/04/20 23 03/04/2023 CBC/C OMPLE TE BLD COUNT W/DIF F white blood cells 8.3 x10'3 /uL 4.2-10 .8 Not Available [facility] (Lab) [address] [place], [address], 03/04/2023 12:14:45 03/04/20 23 03/04/2023 CBC/C OMPLE TE BLD COUNT W/DIF F red blood cells 4.61 x10'6 /uL 3.80-5 .20 Not Available [facility] (Lab) [address] [place], [address], 03/04/2023 12:14:45 03/04/20 23 03/04/2023 CBC/C OMPLE TE BLD COUNT W/DIF F hemoglobin 13.1 g/dL 12.0-1 5.6 Not Available [facility] (Lab) [address] [place], [address], 03/04/2023 12:14:45 03/04/20 23 03/04/2023 CBC/C OMPLE TE BLD COUNT W/DIF F hematocrit 40.3 % 35.7-4 5.7 Not Available [facility] (Lab) [address] [place], [address], 03/04/2023 12:14:45 03/04/20 23 03/04/2023 CBC/C OMPLE TE BLD COUNT W/DIF F mean red cell volume 87.4 fL 82.0-9 9.0 Not Available [facility] (Lab) [address] [place], [address], 03/04/2023 12:14:45 03/04/2003/04/2023 CBC/C OMPLE TE BLD COUNT W/DIF F mean red cell hemoglobin 28.4 pg 27.0-3 3.0 Not Available [facility] (Lab) [address] [place], [address], 03/04/2023 12:14:45 03/04/2003/04/2023 CBC/C OMPLE TE BLD COUNT W/DIF F mean RBC HGB concentratio n 32.5 g/dL 31.0-3 6.0 Not Available [facility] (Lab) [address] [place], [address], 03/04/2023 12:14:45 03/04/2003/04/2023 CBC/C OMPLE TE BLD COUNT W/DIF F red cell distribution width 14.4 % 11.8-1 5.5 Not Available [facility] (Lab) [address] [place], [address], 03/04/2023 12:14:45 03/04/2003/04/2023 CBC/C OMPLE TE BLD COUNT W/DIF F platelets 234 x10'3 /uL 150-40 0 Not Available [facility] (Lab) [address] [place], [address], 03/04/2023 12:14:45 03/04/2003/04/2023 CBC/C OMPLE TE BLD COUNT W/DIF F mean platelet volume 10.5 fL 9.0-12 .4 Not Available [facility] (Lab) [address] [place], [address], 03/04/2023 12:14:45 03/04/2003/04/2023 CBC/C OMPLE TE BLD COUNT W/DIF F neutrophils 57.7 % 39.0-7 2.0 Not Available [facility] (Lab) [address] [place], [address], 03/04/2023 12:14:45 03/04/20 23 03/04/2023 CBC/C OMPLE TE BLD COUNT W/DIF F lymphocytes 30.8 % 16.0-4 7.0 Not Available [facility] (Lab) [address] [place], [address], 03/04/2023 12:14:45 03/04/2003/04/2023 CBC/C OMPLE TE BLD COUNT W/DIF F monocytes 8.3 % 5.0-12 .0 Not Available [facility] (Lab) [address] [place], [address], 03/04/2023 12:14:45 03/04/2003/04/2023 CBC/C OMPLE TE BLD COUNT W/DIF F eosinophils 2.0 % 1.0-7. 0 Not Available [facility] (Lab) [address] [place], [address], 03/04/2023 12:14:45 03/04/2003/04/2023 CBC/C OMPLE TE BLD COUNT W/DIF F basophils 0.7 % 0.0-2. 0 Not Available [facility] (Lab) [address] [place], [address], 03/04/2023 12:14:45 03/04/2003/04/2023 CBC/C OMPLE TE BLD COUNT W/DIF F immature granulocytes 0.5 % 0.00-0 .50 Not Available [facility] (Lab) [address] [place], [address], 03/04/2023 12:14:45 03/04/2003/04/2023 CBC/C OMPLE TE BLD COUNT W/DIF F neutrophils, absolute count 4.79 x10'3 /uL 1.5-8. 0 Not Available [facility] (Lab) [address] [place], [address], 03/04/2023 12:14:45 03/04/20 23 03/04/2023 CBC/C OMPLE TE BLD COUNT W/DIF F lymphocytes, absolute count 2.56 x10'3 /uL 1.07-3 .43 Not Available [facility] (Lab) [address] [place], [address], 03/04/2023 12:14:45 03/04/2003/04/2023 CBC/C OMPLE TE BLD COUNT W/DIF F monocytes, absolute count 0.69 x10'3 /uL 0.29-0 .99 Not Available [facility] (Lab) [address] [place], [address], 03/04/2023 12:14:45 03/04/20 23 03/04/2023 CBC/C OMPLE TE BLD COUNT W/DIF F eosinophils, absolute count 0.17 x10'3 /uL 0.02-0 .53 Not Available [facility] (Lab) [address] [place], [address], 03/04/2023 12:14:45 03/04/2003/04/2023 CBC/C OMPLE TE BLD COUNT W/DIF F basophils, absolute count 0.06 x10'3 /uL 0.01-0 .08 Not Available [facility] (Lab) [address] [place], [address], 03/04/2023 12:14:45 03/04/20 23 03/04/2023 CBC/C OMPLE TE BLD COUNT W/DIF F immature granulocytes ,absolute 0.04 x10'3 /uL 0.00-0 .05 Not Available [facility] (Lab) [address] [place], [address], 03/04/2023 12:14:45 03/04/20 23 03/04/2023 CBC/C OMPLE TE BLD COUNT W/DIF F nucleated red blood cells 0.0 % -0 Not Available [facility] (Lab) [address] [place], [address], 03/04/2023 12:14:45 03/04/20 23 03/04/2023 CBC/C OMPLE TE BLD COUNT W/DIF F NRBC# 0.00 x10'3 /uL Not Available [facility] (Lab) [address] [place], [address], 03/04/2023 12:14:45 03/04/20 23 03/04/2023 MICRO ALBUM N RNDM W/CRE AT RATIO ur creat 36.01 mg/dL REFER ENCE RANGE NOT ESTAB LISHE D FOR RANDO M URINE CREAT ININE Not Available [facility] (Lab) [address] [place], [address], 03/04/2023 13:22:00 03/04/20 23 03/04/2023 MICRO ALBUM N RNDM W/CRE AT RATIO microalbumin , urine <6.0 mg/L 0.0-16 .6 Not Available [facility] (Lab) [address] [place], [address], 03/04/2023 13:22:00 03/04/20 23 03/04/2023 COMPR EHENS IESHA METAB OLIC PANEL sodium 137 mmol/ L 137-14 5 Not Available [facility] (Lab) [address] [place], [address], 03/04/2023 13:30:10 03/04/20 23 03/04/2023 COMPR EHENS IESHA METAB OLIC PANEL potassium 4.0 mmol/ L 3.5-5. 1 Not Available [facility] (Lab) [address] [place], [address], 03/04/2023 13:30:10 03/04/20 23 03/04/2023 COMPR EHENS IESHA METAB OLIC PANEL chloride 103 mmol/ L 98-107 Not Available [facility] (Lab) [address] [place], [address], 03/04/2023 13:30:10 03/04/20 23 03/04/2023 COMPR EHENS IESHA METAB OLIC PANEL carbon dioxide 26 mmol/ L 22-30 Not Available [facility] (Lab) [address] [place], [address], 03/04/2023 13:30:10 03/04/20 23 03/04/2023 COMPR EHENS IESHA METAB OLIC PANEL anion gap 12.0 mmol/ L 14-22 low Not Available [facility] (Lab) [address] [place], [address], 03/04/2023 13:30:10 03/04/20 23 03/04/2023 COMPR EHENS IESHA METAB OLIC PANEL glucose 101 mg/dL 70-99 high Not Available [facility] (Lab) [address] [place], [address], 03/04/2023 13:30:10 03/04/20 23 03/04/2023 COMPR EHENS IESHA METAB OLIC PANEL BUN 10 mg/dL 8-19 Not Available [facility] (Lab) [address] [place], [address], 03/04/2023 13:30:10 03/04/20 23 03/04/2023 COMPR EHENS IESHA METAB OLIC PANEL creatinine 0.79 mg/dL 0.66-1 .25 Not Available [facility] (Lab) [address] [place], [address], 03/04/2023 13:30:10 03/04/20 23 03/04/2023 COMPR EHENS IESHA METAB OLIC PANEL GFR >60 Refer ence Range : [place] GFR Healt hy Adult : >60 [...] calcu lator is avail able on the [facility] websi te: https ://rosalva elizabeth.vanita gunderson/daren altamiranoess michelineal s/kdo qi/gf r_cal culat or Not Available [facility] (Lab) [address] [place], [address], 03/04/2023 13:30:10 03/04/20 23 03/04/2023 COMPR EHENS IESHA METAB OLIC PANEL alkaline phosphatase 59 U/L 38-126 Not Available [facility] (Lab) [address] [place], [address], 03/04/2023 13:30:10 03/04/20 23 03/04/2023 COMPR EHENS IESHA METAB OLIC PANEL alanine aminotransfe rase 27 U/L 0-35 Not Available [facility] (Lab) [address] [place], [address], 03/04/2023 13:30:10 03/04/20 23 03/04/2023 COMPR EHENS IESHA METAB OLIC PANEL aspartate aminotransfe rase 36 U/L 15-37 Not Available [facility] (Lab) [address] [place], [address], 03/04/2023 13:30:10 03/04/20 23 03/04/2023 COMPR EHENS IESHA METAB OLIC PANEL bilirubin, total 0.50 mg/dL 0.20-1 .30 Not Available [facility] (Lab) [address] [place], [address], 03/04/2023 13:30:10 03/04/20 23 03/04/2023 COMPR EHENS IESHA METAB OLIC PANEL calcium 9.2 mg/dL 8.4-10 .2 Not Available [facility] (Lab) [address] [place], [address], 03/04/2023 13:30:10 03/04/20 23 03/04/2023 COMPR EHENS IESHA METAB OLIC PANEL total protein 7.6 g/dL 6.3-8. 2 Not Available [facility] (Lab) [address] [place], [address], 03/04/2023 13:30:10 03/04/20 23 03/04/2023 COMPR EHENS IESHA METAB OLIC PANEL albumin 4.0 g/dL 3.4-5. 0 Not Available [facility] (Lab) [address] [place], [address], 03/04/2023 13:30:10 03/04/20 23 03/04/2023 COMPR EHENS IESHA METAB OLIC PANEL globulin 3.6 g/dL 2.6-4. 2 Not Available [facility] (Lab) [address] [place], [address], 03/04/2023 13:30:10 03/04/20 23 03/04/2023 COMPR EHENS IESHA METAB OLIC PANEL A/G ratio 1.1 ratio 1.0-2. 0 Not Available [facility] (Lab) [address] [place] [address], [address], 03/04/2023 13:30:10 03/04/20 23 03/04/2023 LIPID PANEL cholesterol 200 mg/dL 140-19 9 high NIH SURAJ NSUS RECOM MENDA TION FOR ESTEBAN STERO L: ADULT CHILD LOW RISK: <200 <170 BORDE RLINE : <200- 239 ----- HIGH RISK: >240 >200 Not Available [facility] (Lab) [address] [place] [address], [address], 03/04/2023 13:30:17 03/04/20 23 03/04/2023 LIPID PANEL triglyceride s 258 mg/dL 0-150 high NIH SURAJ NSUS REPOR T RECOM MENDA TION FOR TRIGL YCERI LLUVIA: ADULT CHILD LOW RISK: <150 ----- BODER LINE: 150-1 99 ----- HIGH RISK: >200 ----- Not Available [facility] (Lab) [address] [place] [address], [address], 03/04/2023 13:30:17 03/04/20 23 03/04/2023 LIPID PANEL HDL cholesterol 33 mg/dL 40- low Not Available [facility] (Lab) [address] [place] [address], [address], 03/04/2023 13:30:17 03/04/20 23 03/04/2023 LIPID PANEL [...] WILL NOT BE REPOR ADRYAN. Not Available [facility] (Lab) [address] [place], [address], 03/04/2023 13:30:17 03/04/20 23 03/04/2023 HEMOG LOBIN A1C HA1C 5.5 % 4.0-6. 0 Diabe teresa Scree radha Crite aiden: <5.7% Consi stent with absen ce of diabe teresa 5.7-6 .4% Consi stent with incre ased risk for diabe teresa (pred iabet es) >OR=6 .5% Consi stent with diabe teresa REFER ENCE: Diabe teresa Care 2016, 39(Lee ppl.1 ):s13 -s22 Not Available [facility] (Lab) [address] [place], [address], 03/04/2023 13:33:04 03/04/20 23 03/04/2023 T4 FREE free T4 1.09 NG/dL 0.78-2 .19 Not Available [facility] (Lab) [address] [place], [address], 03/04/2023 13:51:50 03/04/20 23 03/04/2023 TSH thyroid-stim ulating hormone 0.392 uIU/m L 0.465- 4.680 low Not Available [facility] (Lab) [address] [place], [address], 03/04/2023 13:55:05 01/18/20 24 01/18/2024 CBC/C OMPLE TE BLD COUNT W/DIF F white blood cells 8.6 x10'3 /uL 4.2-10 .8 Not Available [facility] (Lab) [address] [place], [address], 01/18/2024 11:40:46 01/18/20 24 01/18/2024 CBC/C OMPLE TE BLD COUNT W/DIF F red blood cells 4.48 x10'6 /uL 3.80-5 .20 Not Available [facility] (Lab) [address] [place], [address], 01/18/2024 11:40:46 01/18/20 24 01/18/2024 CBC/C OMPLE TE BLD COUNT W/DIF F hemoglobin 12.7 g/dL 12.0-1 5.6 Not Available [facility] (Lab) [address] [place], [address], 01/18/2024 11:40:46 01/18/20 24 01/18/2024 CBC/C OMPLE TE BLD COUNT W/DIF F hematocrit 39.9 % 35.7-4 5.7 Not Available [facility] (Lab) [address] [place], [address], 01/18/2024 11:40:46 01/18/20 24 01/18/2024 CBC/C OMPLE TE BLD COUNT W/DIF F mean red cell volume 89.1 fL 82.0-9 9.0 Not Available [facility] (Lab) [address] [place], [address], 01/18/2024 11:40:46 01/18/20 24 01/18/2024 CBC/C OMPLE TE BLD COUNT W/DIF F mean red cell hemoglobin 28.3 pg 27.0-3 3.0 Not Available [facility] (Lab) [address] [place], [address], 01/18/2024 11:40:46 01/18/20 24 01/18/2024 CBC/C OMPLE TE BLD COUNT W/DIF F mean RBC HGB concentratio n 31.8 g/dL 31.0-3 6.0 Not Available [facility] (Lab) [address] [place], [address], 01/18/2024 11:40:46 01/18/20 24 01/18/2024 CBC/C OMPLE TE BLD COUNT W/DIF F red cell distribution width 14.5 % 11.8-1 5.5 Not Available [facility] (Lab) [address] [place], [address], 01/18/2024 11:40:46 01/18/20 24 01/18/2024 CBC/C OMPLE TE BLD COUNT W/DIF F platelets 239 x10'3 /uL 150-40 0 Not Available [facility] (Lab) [address] [place], [address], 01/18/2024 11:40:46 01/18/20 24 01/18/2024 CBC/C OMPLE TE BLD COUNT W/DIF F mean platelet volume 10.7 fL 9.0-12 .4 Not Available [facility] (Lab) [address] [place], [address], 01/18/2024 11:40:46 01/18/20 24 01/18/2024 CBC/C OMPLE TE BLD COUNT W/DIF F neutrophils 52.8 % 39.0-7 2.0 Not Available [facility] (Lab) [address] [place], [address], 01/18/2024 11:40:46 01/18/20 24 01/18/2024 CBC/C OMPLE TE BLD COUNT W/DIF F lymphocytes 35.9 % 16.0-4 7.0 Not Available [facility] (Lab) [address] [place], [address], 01/18/2024 11:40:46 01/18/20 24 01/18/2024 CBC/C OMPLE TE BLD COUNT W/DIF F monocytes 8.1 % 5.0-12 .0 Not Available [facility] (Lab) [address] [place], [address], 01/18/2024 11:40:46 01/18/20 24 01/18/2024 CBC/C OMPLE TE BLD COUNT W/DIF F eosinophils 2.1 % 1.0-7. 0 Not Available [facility] (Lab) [address] [place], [address], 01/18/2024 11:40:46 01/18/20 24 01/18/2024 CBC/C OMPLE TE BLD COUNT W/DIF F basophils 0.7 % 0.0-2. 0 Not Available [facility] (Lab) [address] [place], [address], 01/18/2024 11:40:46 01/18/20 24 01/18/2024 CBC/C OMPLE TE BLD COUNT W/DIF F immature granulocytes 0.4 % 0.00-0 .50 Not Available [facility] (Lab) [address] [place], [address], 01/18/2024 11:40:46 01/18/20 24 01/18/2024 CBC/C OMPLE TE BLD COUNT W/DIF F neutrophils, absolute count 4.53 x10'3 /uL 1.5-8. 0 Not Available [facility] (Lab) [address] [place], [address], 01/18/2024 11:40:46 01/18/20 24 01/18/2024 CBC/C OMPLE TE BLD COUNT W/DIF F lymphocytes, absolute count 3.08 x10'3 /uL 1.07-3 .43 Not Available [facility] (Lab) [address] [place], [address], 01/18/2024 11:40:46 01/18/20 24 01/18/2024 CBC/C OMPLE TE BLD COUNT W/DIF F monocytes, absolute count 0.69 x10'3 /uL 0.29-0 .99 Not Available [facility] (Lab) [address] [place], [address], 01/18/2024 11:40:46 01/18/20 24 01/18/2024 CBC/C OMPLE TE BLD COUNT W/DIF F eosinophils, absolute count 0.18 x10'3 /uL 0.02-0 .53 Not Available [facility] (Lab) [address] [place], [address], 01/18/2024 11:40:46 01/18/20 24 01/18/2024 CBC/C OMPLE TE BLD COUNT W/DIF F basophils, absolute count 0.06 x10'3 /uL 0.01-0 .08 Not Available [facility] (Lab) [address] [place], [address], 01/18/2024 11:40:46 01/18/20 24 01/18/2024 CBC/C OMPLE TE BLD COUNT W/DIF F immature granulocytes ,absolute 0.03 x10'3 /uL 0.00-0 .05 Not Available [facility] (Lab) [address] [place], [address], 01/18/2024 11:40:46 01/18/20 24 01/18/2024 CBC/C OMPLE TE BLD COUNT W/DIF F nucleated red blood cells 0.0 % -0 Not Available [facility] (Lab) [address] [place], [address], 01/18/2024 11:40:46 01/18/20 24 01/18/2024 CBC/C OMPLE TE BLD COUNT W/DIF F NRBC# 0.00 x10'3 /uL Not Available [facility] (Lab) [address] [place], [address], 01/18/2024 11:40:46 01/18/20 24 01/18/2024 LIPID PANEL cholesterol 196 mg/dL 140-19 9 NIH SURAJ NSUS RECOM MENDA TION FOR ESTEBAN STERO L: ADULT CHILD LOW RISK: <200 <170 BORDE RLINE : <200- 239 ----- HIGH RISK: >240 >200 Not Available [facility] (Lab) [address] [place], [address], 01/18/2024 12:03:33 01/18/2001/18/2024 LIPID PANEL triglyceride s 218 mg/dL 0-150 high NIH SURAJ NSUS REPOR T RECOM MENDA TION FOR TRIGL YCERI LLUVIA: ADULT CHILD LOW RISK: <150 ----- BODER LINE: 150-1 99 ----- HIGH RISK: >200 ----- Not Available [facility] (Lab) [address] [place], [address], 01/18/2024 12:03:33 01/18/2001/18/2024 LIPID PANEL HDL cholesterol 41 mg/dL 40- Not Available [facility] (Lab) [address] [place], [address], 01/18/2024 12:03:33 01/18/20 24 01/18/2024 LIPID PANEL [...] WILL NOT BE REPOR ADRYAN. Not Available [facility] (Lab) [address] [place], [address], 01/18/2024 12:03:33 01/18/2001/18/2024 COMPR EHENS IESHA METAB OLIC PANEL sodium 133 mmol/ L 137-14 5 low Not Available [facility] (Lab) [address] [place], [address], 01/18/2024 12:03:40 01/18/20 24 01/18/2024 COMPR EHENS IESHA METAB OLIC PANEL potassium 4.4 mmol/ L 3.5-5. 1 Not Available [facility] (Lab) [address] [place], [address], 01/18/2024 12:03:40 01/18/20 24 01/18/2024 COMPR EHENS IESHA METAB OLIC PANEL chloride 101 mmol/ L 98-107 Not Available [facility] (Lab) [address] [facility] [place], [address], 01/18/2024 12:03:40 01/18/20 24 01/18/2024 COMPR EHENS IESHA METAB OLIC PANEL carbon dioxide 26 mmol/ L 22-30 Not Available [facility] (Lab) [address] [place], [address], 01/18/2024 12:03:40 01/18/20 24 01/18/2024 COMPR EHENS IESHA METAB OLIC PANEL anion gap 10.4 mmol/ L 14-22 low Not Available [facility] (Lab) [address] [place], [address], 01/18/2024 12:03:40 01/18/20 24 01/18/2024 COMPR EHENS IESHA METAB OLIC PANEL glucose 91 mg/dL 70-99 Not Available [facility] (Lab) [address] [place], [address], 01/18/2024 12:03:40 01/18/20 24 01/18/2024 COMPR EHENS IESHA METAB OLIC PANEL BUN 15 mg/dL 8-19 Not Available [facility] (Lab) [address] [place], [address], 01/18/2024 12:03:40 01/18/20 24 01/18/2024 COMPR EHENS IESHA METAB OLIC PANEL creatinine 0.96 mg/dL 0.66-1 .25 Not Available [facility] (Lab) [address] [place], [address], 01/18/2024 12:03:40 09/30/20 24 01/18/2024 COMPR EHENS IESHA METAB OLIC PANEL GFR >60 Refer ence Range : [place] GFR Healt hy Adult : >60 [...] calcu lator is avail able on the [facility] websi te: [email or web address] :[email or web address]/kdo [email or web address]/gf r_cal culat or Not Available [facility] (Lab) [address] [place], [address], 01/18/2024 12:03:40 01/18/20 24 01/18/2024 COMPR EHENS IESHA METAB OLIC PANEL alkaline phosphatase 59 U/L 38-126 Not Available [facility] (Lab) [address] [place], [address], 01/18/2024 12:03:40 01/18/20 24 01/18/2024 COMPR EHENS IESHA METAB OLIC PANEL alanine aminotransfe rase 26 U/L 0-35 Not Available [facility] (Lab) [address] [place], [address], 01/18/2024 12:03:40 01/18/20 24 01/18/2024 COMPR EHENS IESHA METAB OLIC PANEL aspartate aminotransfe rase 25 U/L 15-37 Not Available [facility] (Lab) [address] [place], [address], 01/18/2024 12:03:40 01/18/20 24 01/18/2024 COMPR EHENS IESHA METAB OLIC PANEL bilirubin, total 0.60 mg/dL 0.20-1 .30 Not Available [facility] (Lab) [address] [place], [address], 01/18/2024 12:03:40 01/18/20 24 01/18/2024 COMPR EHENS IESHA METAB OLIC PANEL calcium 8.9 mg/dL 8.4-10 .2 Not Available [facility] (Lab) [address] [place], [address], 01/18/2024 12:03:40 01/18/20 24 01/18/2024 COMPR EHENS IESHA METAB OLIC PANEL total protein 7.1 g/dL 6.3-8. 2 Not Available [facility] (Lab) [address] [place], [address], 01/18/2024 12:03:40 01/18/20 24 01/18/2024 COMPR EHENS IESHA METAB OLIC PANEL albumin 3.9 g/dL 3.4-5. 0 Not Available [facility] (Lab) [address] [place], [address], 01/18/2024 12:03:40 01/18/20 24 01/18/2024 COMPR EHENS IESHA METAB OLIC PANEL globulin 3.2 g/dL 2.6-4. 2 Not Available [facility] (Lab) [address] [place], [address], 01/18/2024 12:03:40 01/18/20 24 01/18/2024 COMPR EHENS IESHA METAB OLIC PANEL A/G ratio 1.2 ratio 1.0-2. 0 Not Available [facility] (Lab) [address] [place], [address], 01/18/2024 12:03:40 01/18/20 24 01/18/2024 T4 FREE free T4 1.18 NG/dL 0.78-2 .19 Not Available [facility] (Lab) [address] [place], [address], 01/18/2024 12:21:42 01/18/20 24 01/18/2024 TSH thyroid-stim ulating hormone 0.412 uIU/m L 0.465- 4.680 low Not Available [facility] (Lab) [address] [place], [address], 01/18/2024 12:34:36 01/18/20 24 01/18/2024 HEMOG LOBIN A1C HA1C 5.2 % 4.0-6. 0 Diabe teresa Scree radha Crite aiden: <5.7% Consi stent with absen ce of diabe teresa 5.7-6 .4% Consi stent with incre ased risk for diabe teresa (pred iabet es) >OR=6 .5% Consi stent with diabe teresa REFER ENCE: Diabe teresa Care 2016, 39(Lee ppl.1 ):s13 -s22 Not Available [facility] (Lab) [address] [place], [address], 01/18/2024 15:18:26 09/19/19 23 09/18/2022 XR, wrist , 3 or more view [facility] [address] [place] [address] Patien t Name: ALICE VAZQUEZ Access ion #: [id number] Sex: F : 1970 6 Locati [...] s. IMPRES LORI: Page 1 of [address] [facility] Name: ALICE VAZQUEZ Access ion #: [id number] Sex: F : 1970 6 Exam [...] MD (CT) (CT) Page [address] of [address] (Imaging) [address] [place], [address], 09/18/2022 17:02:14 05/18/1905/17/2024 biops y, thyro id (PROC ) No observ ation record ed. [place] [id number] [facility] [address], [place], [address], 05/18/2024 10:07:39 Result Notes None recorded. Problems Name Problem SNOMED Code Status Onset Date Resolution Date Notes Provider Name and Address Organization Details Recorded Time Diabetes mellitus without complicati on 801533449 Active 2021 Not Available [facility] 3 16:19:26 Benign essential hypertensi on 0077997 Active Not Available [facility] 3 16:19:26 Irritable bowel syndrome with diarrhea 863484754 Active 2017 Not Available [facility] 3 16:19:26 Anxiety disorder 632755514 Active Not Available [facility] 3 16:19:26 Fco thyroiditi s 08750168 Active 2016 Not Available [facility] 3 16:19:26 Finding of body mass index 284833806 Active 2021 Not Available [facility] 3 16:19:26 Hypothyroi dism 51687318 Active 2019 Not Available [facility] 3 16:19:26 Obesity 194933130 Active 2021 Not Available [facility] 3 16:19:26 Nodular goiter 047090614 Active 2016 Not [address] [facility] 3 16:19:26 Glossitis 72991450 Active 2020 Not Available [facility] 3 16:19:26 Hyperlipid emia 70681130 Active 2021 Not Available [facility] 3 16:19:26 Palpitatio ns 73564697 Active Not Available [facility] 3 16:19:26 Prediabete s 814945119 Active 2022 Not Available [facility] 3 16:19:26 Hypertrigl yceridemia 224591586 Active 2022 Not [address] [facility] 3 16:19:26 Pain of left wrist 2209724854840 02 Active 2022 Sunita [place], CINTHIA null, [place] - [facility] 3 12:06:25 Well controlled type 2 diabetes mellitus 862376796 Active 2022 Naila Reed MD [address], [place], [address] , [facility] 3 17:08:50 Mixed hyperlipid emia 860726435 Active 2022 Naila Reed MD [address], [place], [address] , [facility] 3 17:10:04 Low back strain 227812913 Active 2022 King Parker MD [address], [place], [address] , [facility] 3 16:19:54 Gastroesop hageal reflux disease 524979826 Active 2023 King Parker MD [address] [facility] [place] [address], [place], [address] , [facility] 4 15:22:49 Problem Notes Documentation Provider Name and Address Organization Details Recorded Time Endocrinology Note : [facility] [address] [facility], [facility] [address]EFZGQY, Erika L (id #[id number], : 1970) Documents [...] received this fax in error, please visit [email or web address] to notify the sender and confirm that the information will be destroyed. If you do not have internet access, please call to notify the sender and confirm that the information will be destroyed. Thank you for your attention and cooperation. [ID:[id number]][facility] [employer] [address] [place] [address] , Date: 10/28/2022RE: Alice Vazquez, : 1970, [...] Source Auvi-Q 0.3 mg/0.3 mL injection, auto-injectorUSE [id number]/27/22 filled MIGRATION.[id number] azelastine 137 mcg (0.1 %) nasal spray aerosolUSE 2 SPRAYS IN EACH NOSTRIL TWICE DAILY12/28/21 filled MIGRATION.[id number] lisinopriL 20 mg tabletTAKE 1 TABLET BY MOUTH EVERY DAY FOR HIGH BLOOD EEASRONC20/05/22 filled MIGRATION.9967530247 metFORMIN ER 500 mg tablet,extended release 24 hrTAKE 1 TABLET BY MOUTH EVERY DAY AT YRTMZT12/11/23 prescribed Naila Reed MD metoprolol tartrate 25 mg tabletTAKE 1 TABLET BY MOUTH TWICE DAILY07/22/22 renewed King Parker MD Ozempic 0.25 mg or 0.5 mg (2 mg/1.5 mL) subcutaneous pen injectorINJECT 0.5 MG UNDER THE SKIN EVERY WEEK AT FAHEBH50/02/22 filled MIGRATION.[id number] Ozempic 1 mg/dose (4 mg/3 mL) subcutaneous pen injectorInject 1 mg every week by subcutaneous route at dinner for 90 days.10/28/22 prescribed Naila Reed MD sertraline 50 mg tabletTAKE 1 TABLET BY MOUTH EVERY DAY01/22/22 filled MIGRATION.[id number] Synthroid 75 mcg tabletTAKE 1 TABLET BY MOUTH EVERY DAY IN THE AERLCLA18/22/23 renewed Naila Reed MD Vascepa 1 gram capsuleTake 2 capsule(s) twice a day by oral route before meals for 90 days.12/26/21 filled MIGRATION.6690879788 Vitamin D3 25 mcg (1,000 unit) tabletTake 1 tablet 3 times a week by oral route., start started MIGRATION.2527146992 [facility] Family History: Father - Diabetes mellitus [...] Exercise: Infrequently 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 Recommended patient to utilize the diabetesOcera Therapeutics.ePrep from the ADA website to help with [...] (3) 3 mL syringe Refills: 1 Pharmacy: [id number] metformin ER 500 mg tablet,extended release 24 hr - TAKE 1 TABLET BY MOUTH EVERY DAY AT DINNER Qty: (90) tablet Refills: 1 Pharmacy: [facility] #[id number] 2. Hypothyroidism-Continue synthroid 75 mcg daily as [...] Office to see King Parker MD at [facility] Internal Med [address] on or around 01/16/2023 CINTHIA Zavaleta [place] [facility] 10/29/2022 11:08:16 Procedures Surgical History None recorded. Imaging Results Imaging Date Name Status LastModified by Organiz [facility] Details LastModified Time 09/18/2022 XR, wrist, 3 or more view completed [email or web address] [facility] (Imaging) [address] [place], [address], 09/18/2022 17:02:14 05/17/2024 biopsy, thyroid (PROC) completed [address] [facility] [address], [place], [address], 05/18/2024 10:07:39 Procedure Notes None recorded. Medical [...] Updated DateTime 3 157.48 cm 40.2 kg/m2 40510.3 2 g 96.9 [degF] 87 /min 96 % 96 % 126 mm[Hg] 70 mm[Hg] Vee Williamson MA [facility] [employer] [facility] 3 15:56:11 Date Recorded Body height Body mass index (BMI) Body weight Body temperature Heart rate Systolic blood pressure Diastolic blood pressure Provider Name and Address Organization Details Last Updated DateTime 3 157.48 cm 40.3 kg/m2 511500. 48 g 97.9 [degF] 74 /min 148 mm[Hg] 71 mm[Hg] KIMBERLY [facility] [employer] [facility] 3 16:49:16 Date Recorded Body height Body mass index (BMI) Body weight Heart rate Body temperature Oxygen saturation Oxygen saturation in Arterial blood by Pulse oximetry Systolic blood pressure Diastolic blood pressure Provider Name and Address Organization Details Last Updated DateTime 3 157.48 cm 39.1 kg/m2 66255.7 7 g 80 /min 97 [degF] 96 % 96 % 120 mm[Hg] 78 mm[Hg] Mona Leonard [employer] [facility] [employer] [facility] 3 15:17:34 Date Recorded Body height Body mass index (BMI) Body weight Heart rate Body temperature Oxygen saturation Oxygen saturation in Arterial blood by Pulse oximetry Systolic blood pressure Diastolic blood pressure Provider Name and Address Organization Details Last Updated DateTime 4 157.48 cm 39.6 kg/m2 21393.7 5 g 86 /min 97 [degF] 92 % 92 % 122 mm[Hg] 84 mm[Hg] Mona Leonard [employer] [facility] [employer] 4 15:23:30 Date Recorded Body height Body mass index (BMI) Body weight Heart rate Body temperature Oxygen saturation Oxygen saturation in Arterial blood by Pulse oximetry Systolic blood pressure Diastolic blood pressure Provider Name and Address Organization Details Last Updated DateTime 4 157.48 cm 39.5 kg/m2 62936.9 5 g 80 /min 97 [degF] 98 % 98 % 118 mm[Hg] 82 mm[Hg] KIMBERLY Sigala [place] - [facility] 14:58:25 Social History Question Answer Notes LastModified by Organizat ion Details LastModified Time Tobacco Smoking Status Never Smoker Not Available [employer] 06/18/2022 01:03:35 What Is Your Level Of Alcohol Consumption? None MIGRATION.[id number] Information not available 06/18/2022 What Is Your Level Of Caffeine Consumption? Moderate MIGRATION.035573 6121 Information not available 06/18/2022 How Much Tobacco Do You Chew? None MIGRATION.601889 4902 Information not available 06/18/2022 In The 14 Days Before Symptom Onset, Have You Had Close Contact With A Laboratory-confir med COVID-19 While That Case Was Ill? No MIGRATION.788503 0228 Information not available 06/18/2022 In The 14 Days Before Symptom Onset, Have You Had Close Contact With A Person Who Is Under Investigation For COVID-19 While That Person Was Ill? No MIGRATION.607509 0917 Information not available 06/18/2022 Which Illicit Or Recreational Drugs Have You Used? None MIGRATION.424756 8745 Information not available 06/18/2022 Do You Or Have You Ever Used E-cigarettes Or Vape? Never Used Electronic Cigarettes MIGRATION.872211 6391 Information not available 06/18/2022 Do You Or Have You Ever Used Smokeless Tobacco? Never Used Smokeless Tobacco MIGRATION.480552 3163 Information not available 06/18/2022 How Much Tobacco Do You Smoke? No MIGRATION.388593 3407 Information not available 06/18/2022 Have You Recently Traveled Abroad? No MIGRATION.483113 9993 Information not available 06/18/2022 Sex: Female Functional Status None recorded. Mental Status None recorded. Family History Relationship Description Onset Age of this Age Resolved Age Notes LastModified by Organization Details LastModified Time Father Diabetes mellitus MIGRATION.031 [id number] Not available 06/18/2022 01:06:08 Father Malignant tumor of stomach MIGRATION.326 [id number] Not available 06/18/2022 01:06:08 Paternal Grandmother Goiter MIGRATION.129 [id number] Not available 06/18/2022 01:06:08 Notes:Mother Living 68 [...] PF 3 completed King Parker MD [address] [facility] [address], [place], [address], [facility] [employer] 01/21/2023 16:48:37 SARS-COV-2 (COVID-19) vaccine, UNSPECIFIED 1 completed Not Available [facility] 08/24/2022 16:19:27 SARS-COV-2 (COVID-19) vaccine, UNSPECIFIED 1 completed Not Available [facility] 08/24/2022 16:19:27 SARS-COV-2 (COVID-19) vaccine, UNSPECIFIED 1 completed Not Available [facility] 08/24/2022 16:19:27 Influenza, split virus, trivalent, preservative 3 completed Not Available [facility] 08/24/2022 16:19:27 Influenza, split virus, quadrivalent, PF 1 completed Not Available [facility] 08/24/2022 16:19:27 Influenza, split virus, quadrivalent, PF 0 completed Not Available [employer] 08/24/2022 16:19:27 Influenza, split virus, quadrivalent, preservative 7 completed Not Available [facility] 08/24/2022 16:19:27 Influenza, split virus, trivalent, PF 4 completed Sunita [place] CMA null, [place] [facility] 01/20/2024 15:44:08 Past Encounters Encounter ID Performer Location Encounter Start Date Encounter Closed Date Diagnosis/Indication Diagnosis SNOMED-CT Code Diagnosis ICD10 Code Diagnosis Note [id number] _ATHENA_M IGRATION_ DEFAULT_1 _1 , 06/28/2020 00:00:00 06/28/2020 11:00:54 [id number] [facility] Internal [facility] [address] [address] 07/25/2020 00:00:00 07/25/2020 12:46:51 [id number] [facility] [place]o [place] [address] [place] [address] 01/08/2021 00:00:00 01/08/2021 15:33:18 [id number] [facility] Internal Med Abbe coronado [address] [facility] , [facility] [place] [address] 01/15/2021 00:00:00 01/15/2021 16:08:29 [id number] _ATHENA_M IGRATION_ DEFAULT_1 _1 , 06/20/2021 00:00:00 06/20/2021 10:02:53 [id number] [facility] Internal [facility] [address] [address] 07/10/2021 00:00:00 07/10/2021 11:49:36 [id number] _ATHENA_M IGRATION_ DEFAULT_1 _1 , 12/26/2021 00:00:00 12/26/2021 10:15:45 [id number] [facility] Internal [facility] [address] [address] 01/15/2022 00:00:00 01/15/2022 16:05:23 [id number] King Parker MD [facility] Internal Med [place] [address], [facility] [address] [place] [address] 07/16/2022 15:55:49 07/16/2022 17:52:22 Benign essential hypertension 9563488 I10 Hyperlipidemia 52974170 E78.5 Diabetes zuri gomez without complication 003281176 E11.9 Anxiety disorder 7295820 06 F41.9 Obesity 492491916 E66.9 Hypothyroidism 50830253 E03.9 [id number] Naila Reed MD [facility] Endo Antoine Alvarenga [address] [place] [address] 10/28/2022 16:42:31 10/28/2022 17:33:28 Well controlled type 2 diabetes mellitus 264915529 E11.9 a1c of 6.1% in control- continue on metformin and ozempic 1 mg once weekly for continued glucose control. Discussed carb counting and how to read food labels. Recommende d patient to utilize the diabetesfo [employer].ePrep from the ADA website to help with food preparatio n as this presents ideal carb content per meal so this will make carb counting much easier for patient. Recommende d she incorporat e natural insulin master chef s such as pears, apples, cinnamon, raúl and sweet potatoes to help mobilize her endogenous insulin. Recommende d up to 150 minutes of moderate level activity/e xercise weekly. Hypothyroidism 10985920 E03.9 Continue synthroid 75 mcg daily as thyroid levels in ideal control. Mixed hyperlipidemia 267 398433 E78.2 continue on vascepa for mixed dyslipidem [...] results to the patient. RTC as needed. [id number] King Parker MD [facility] Internal Med [address], [facility] [address] [place] [address] 01/21/2023 14:41:22 01/21/2023 15:39:46 Administration of influenza vaccine 12991606 Z23 [facility] examination 954268176 Z00.00 Depression screening 171 738435 Z13.31 Diabetes m ellitus without complication 824001163 E11.9 Benign ess ential hypertension 6807184 I10 Mixed hyperlipidemia 267 208360 E78.2 [id number] King Parker MD [facility] Internal Med [facility] [address] [address] 07/22/2023 14:52:30 07/22/2023 15:38:16 Hyperlipidemia 06231169 E78.5 Hypothyroidism 70352090 E03.9 Well contr olled type 2 diabetes mellitus 676586744 E11.9 Benign ess ential hypertension 4470097 I10 Anxiety disorder 8088695 06 F41.9 [id number] King Parker MD [facility] Internal Med [facility] [address] [place] [address] 01/20/2024 14:43:55 01/20/2024 15:30:08 Benign essential hypertension 8615438 I10 Hyperlipidemia 72036657 E78.5 Hypothyroidism 31682404 E03.9 Obesity 787174357 E66.9 Gastroesop hageal reflux disease 234063934 K21.9 Administra tion of influenza vaccine 93702608 Z23 Health Concerns Section Related Observation LastModified by Organization Detai ls LastModified Time None Recorded Concern Status LastModified by Organization Details LastModified Time None Recorded Advance Directives Directive None Recorded Payers Encounter Date Sequence Insurance Name Policy Number Policy Castellano Covered Member ID Castellano Member ID Guarantor Name 07/16/2022 1 [place]) 113 Alice L George [id number] Alice L George 10/28/2022 1 [place] 113 Alice L George [id number] Alice L George 01/21/2023 1 [place] 113 Alice L George [id number] Ailce L George 07/22/2023 1 [place] 113 Alice L George [id number] Alice L George 01/20/2024 1 [place] [employer] EMPLOYEE PROGRAM (PPO) 113 Alice Vazquez [id number] Alice Vazquez Notes Date Note Type Note [...] WeeklyVascepa 1000 MG CAPSULE 4 DailyVaccination and Rayiidmdohay9460-24 Covid Booster Jfqgdy4842-57 Covid Nlesij0412-52 Icaaygjuw8302-14 Ggmi8917-92 Zostavax (shingles)Surgical HistoryThyroid BiopsyPreventative Testing Confirmed by Our Eoiqdjz0107/07/2022 ALBUMIN 3.8 G/DL07/07/2022 HAIC 6.1 % 04/18/2022 [...] brothers or sisters King Parker MD [address] [address], [place], [address], [employer] 07/16/2022 16:13:18 3 text/html 52 yo female [...] mg/dLCr normalLFT normal Naila Reed MD [address] [facility], [address] [address], [place], [address], [employer] 10/28/2022 22:09:04 3 text/html Patient Name: Alice [...] non healing lesions. [facility]: 6.1 Calculated MB [...] WeeklyVascepa 1000 MG CAPSULE 4 DailyVaccination and Ykywueyfapxa5655-04 Xpaiaovjd5861-06 Vygfkwwry1458-98 Covid Booster Tgilxo4630-49 Covid Smiomx4671-26 Kmrkxrgqa7220-18 Vsuy9709-49 Zostavax (shingles)Surgical HistoryThyroid BiopsyPreventative Testing Confirmed by Our Cnhwamx8707/07/2022 ALBUMIN 3.8 G/DL07/07/2022 HAIC 6.1 % 04/18/2022 MAMMOGRAM COLONOSCOPY ( 3 YEARS ) 04/15/2025Social HistorySOCIAL HISTORY:Does not smoke cigarettes. Drinking Hx: 2 Cups of tea perday, < 6 cans of soft drinks per day.Exercise: InfrequentlySexual Hx: Sexually ActiveOccupation: Office WorkerFamily HistoryFAMILY HISTORY:Mother Living 75 years old CholesterolFather 71 years old neuroendocrine cancer of stomach, CVA and GBNo brothers or sisters King Parker MD [address] [place] [address], [place] [address], [place], [address], [place] [employer] [place] [employer] 01/21/2023 16:48:47 4 text/html Patient Name: Alice [...] offered to be evaluated and instructed by windows architect on weight loss diet.#5. GERD current on [...] COVID PFIZER(X) 2020- COVID BOOSTER PFIZER Surgical [id number] Thyroid Biopsy Preventative Testing( ) 01/18/2024 Albumin 3.9 G/DL( ) 01/18/2024 HAIC 5.2 %( ) 03/04/2023 Micro Albumin <6.0 MG/L N(X) 04/18/2022 Mammogram 04/18/2023( ) 04/15/2022 Colonoscopy ( 3 Years ) 04/15/2025 Social HistorySOCIAL HISTORY:Does not smoke cigarettes. 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
--- OUTSIDE RECORDS SUMMARY | 2024-06-27 00:50 | XMS_ITS ---
Author Organization [facility] Address [address] [place] [address] Care Team Providers Care Slime Plant Operator Helper Name Role Phone Gautam Parker MD Primary Care Provider Marcia Watson Unavailable [phone] REASON FOR VISIT SCIT - Traditional Schedule Allergy immunotherapy Medications Medication SIG (Take, Route, Frequency, Duration) Notes Start Date End Date Status SIT (TRADITIONAL) variable per schedule SC per schedule for to be determined Active Encounters Encounter Location Date Provider Diagnosis [facility] [address] [place] [phone] 05/09/2024 Marcia Wade Allergic rhinitis du e [...] Provider Name:Marcia brown, 07/04/2024 09:00:00 AM, [address], [place], [address], Progress Notes * Arik VAZQUEZ:1970 (53 yo F)Acc No.[id number]:05/09/2024 SCIT-Aeroallergen Patient: Alice SUNSHINE Provider: Lolita Wade MD :1970 A ge:53 Y S ex:Female Date:05/09/2024 Address:[address] [place], [place] [phone] Pcp:Gautam Parker MD Subjective: * Chief Complaints: [...] Information: * Visit Code: * Procedure Codes: 86245 IMMUNOTHERAPY INJECTIONS. * CIATE PROFESSOR OF THEOLOGY Sign off status: Completed true * Provider: Lolita Wade MD Date: 0 05/09/2024 Generated for Kodii marlene/Margie/Vernonitting on: 0 06/27/2024 12:49 AM CDT History [...]
--- OUTSIDE RECORDS SUMMARY | 2024-06-27 00:50 | XMS_ITS | Referral Summary ---
Author Organization [facility] Address [address] [place] [address] Care Team Providers Care Hot Mill Observer Name Role Phone Unknown, Provider Primary Care Provider Unavaila ble Source Comments [facility],non-owned Affiliates and Associated Physician Practices is amultiple site organization consisting of ambulatory clinics and hospital sitesin [place], [place], [place] and [place]. This disclosure is being madepursuant to the Care Everywhere program and may not contain all information available regarding this patient. Last updated 18.[facility] [employer] Encounters Date Type Department Care Team Description 06/24/2024 Travel 06/24/2024 1:30 PM PROCESSING ARCHIVIST Office Visit [facility] - ENT [address] [place] [phone] Kevin Melendez MD Arrived from Last 3 Months Allergies No known active allergies Medications * [...] tablet by mouth once daily 04/18/2024 Active Immunizations Name Administration Dates Next Due INFLUENZA [...] Comments Blood Pressure 176/85 06/24/2024 1:19 PM PROCESSING ARCHIVIST Pulse 112 06/24/2024 1:19 PM PROCESSING ARCHIVIST Temperature - - Respiratory Rate - - Oxygen Saturation - - Inhaled Oxygen Concentration - - Weight 101.6 kg (224 lb) 06/24/2024 1:19 PM PROCESSING ARCHIVIST Height - - Body Mass Index - - Plan of Treatment Not on file Care Teams Hot Mill Observer Relationship Specialty Start Date End Date Unknown, Provider PCP - General 06/24/24
--- OUTSIDE RECORDS SUMMARY | 2024-06-27 00:50 | XMS_ITS ---
Author Organization [facility] Address [address] [place] [address] Care Team Providers Care Handbook Writer Name Role Phone Gautam Parker MD Primary Care Provider Marcia Watson Unavailable [phone] REASON FOR VISIT SCIT - Traditional Schedule Allergy immunotherapy Medications Medication SIG (Take, Route, Frequency, Duration) Notes Start Date End Date Status SIT (TRADITIONAL) variable per schedule SC per schedule for to be determined Active Encounters Encounter Location Date Provider Diagnosis [facility] [address] [place] [address] [place] [phone] 06/06/2024 Marcia Wade Allergic rhinitis du e to pollen J30.1 ; Other allergic rhinitis J30.89 and Other chronic allergic conjunctivitis H10.45 Assessments Encounter Date Diagnosis (ICD Code) Assessment Notes Treatment Notes Treatment Clinical Notes Section Notes 06/06/2024 Allergic rhinitis due to pollen (ICD-10 - J30.1) 06/06/2024 Other allergic rhinitis (ICD-10 - J30.89) 06/06/2024 Other chronic allergic conjunctivitis (ICD-10 - H10.45) Plan Of Treatment Medication Medication Name Sig Start Date Stop Date Notes SIT (TRADITIONAL) variable per schedule SC per schedule for to be determined Next Appt Details Follow Up: 1 Week, Reason: Provider Name:Marcia brown, 07/04/2024 09:00:00 AM, [address], [place], [address], Progress Notes * Arik VAZQUEZ:1970 (54 yo F)Acc No.[id number]:06/06/2024 SCIT-Aeroallergen Patient: Alice SUNSHINE Provider: Lolita Wade MD :1970 A ge:54 Y S ex:Female Date:06/06/2024 Address:[address] [place], [place] [phone] Pcp:Gautam Parker MD Subjective: * Chief Complaints: [...] Information: * Visit Code: * Procedure Codes: 74054 IMMUNOTHERAPY INJECTIONS. * SCIENCE RESEARCH ASSISTANT Sign off status: Completed true * Provider: Lolita Wade MD Date: 0 06/06/2024 Generated for Karin rosario/Margie/Vernonitting on: 0 06/27/2024 12:49 AM CDT History [...]
--- NOTE | 2024-06-27 07:10 | WPDHPUPDATE1 ---
History and Physical Update Update Date/Time: 06/27/24 07:10 History and Physical has been reviewed, including an updated exam of the patient. There are NO changes in the patient's condition. Risks, benefits, and alternatives have been discussed and questions answered. Patient agrees to proceed with procedure.
--- NOTE | 2024-06-27 07:10 | PM.HPGS ---
History of Present Illness History of Present Illness Consent: Risks, benefits, and alternatives have been discussed and questions answered. Patient agrees to proceed with procedure. Chief complaint: post menopausal bleeding Narrative: Alice Vazquez is a 54 year old female with postmenopausal bleeding and thickened endometrium. It was recommended to undergo D&C hysteroscopy to further evaluate. Risks infection, bleeding, and perforation are reviewed. Patient voices understanding and agrees to proceed. Review of Systems Review of Systems: not repeated day of surgery; patient states no changes in status PMFSH Past Medical History Medical History (Updated 06/27/24 @ 07:14 by Ambar Pete MD) Fco's thyroiditis HTN (hypertension) BMI 40.0-44.9, adult Pre-diabetes Hypothyroidism Family History Family History Other Cerebrovascular accident Depression Diabetes mellitus Family history of malignant neoplasm of bone Family history of malignant neoplasm of thyroid Family history of osteoporosis Family history of thyroid disease Hypertension Social History Social History Smoking status: Never smoker Second hand tobacco smoke exposure: No Alcohol intake: never Substance use: never Substance use type: does not use Do You Feel Safe in your Home?: Yes Lack of Transportation: No Lack of Food: Never True Current Housing: I Have Housing Concerned About Future Housing: No Difficulty Paying Gas/Electric Bills: No Difficulty Paying for Meds: No Currently Unemployed: No Education: Master's Degree or Higher Difficulty w/ Childcare or Family Care: No Living arrangements: with family Spiritual care concerns: No Meds Home Medications and Allergies Home Medications ?Medication ?Instructions ?Recorded ?Confirmed ?Type lisinopril 20 mg tablet 20 mg PO DAILY 04/01/22 06/15/24 History sertraline 50 mg tablet 50 mg PO DAILY 04/01/22 06/15/24 History Synthroid 75 mcg tablet 75 mcg PO DAILY #90 tabs 05/13/24 06/15/24 Rx (levothyroxine) metformin 500 mg tablet,extended 500 mg PO DAILY #90 tabs 05/13/24 06/15/24 Rx release 24 hr metoprolol tartrate 25 mg tablet 25 mg PO DAILY@1700 06/15/24 06/15/24 History Allergies Allergy/AdvReac Type Severity Reaction Status Date / Time No Known Allergies Allergy Verified 06/15/24 17:37 Exam Const: General: healthy appearing and alert Orientation/consciousness: patient oriented x3 Resp: Effort & Inspection: normal respiratory effort : External Female Exam: normal external appearance Speculum Exam - Vagina: normal appearance of the vagina and normal vaginal discharge Speculum Exam - Cervix: normal appearance of the cervix Bimanual exam- vagina & uterus: uterine size normal and consistency normal Bimanual Exam- Adnexa, other: normal adnexae and No adnexal tenderness Neuro: General: patient oriented x3 Assessment and Plan Assessment and plan (1) Post-menopausal bleeding: Code(s): N95.0 - Postmenopausal bleeding Status: Acute Assessment and Plan: Plan to proceed with D&C hysteroscopy
[2024-06-27 08:20] VITALS: BP 145/79; PULSE 94; RESP 16; TEMP 37.3; O2SAT 98; BMI 40.9
[2024-06-27 08:20] LABS: Glucose Point of Care 118 mg/dl (65-105)
[2024-06-27] MEDS: ACETAMINOPHEN 500 MG TABLET 1000 MG PO (08:20)
[2024-06-27] MEDS: LACTATED RINGERS 1,000 ML 30 ML IV CONT (08:25)
--- NOTE | 2024-06-27 08:37 | P.PNAN_ITS ---
Anes - Initial Pre Proc Eval Procedure: Operation Date: 06/27/24 09:45 Proposed Procedures p Hysteroscopy, Dilation and Curettage - Ambar Pete MD Date/Time: 06/27/24 08:37 Surgeon: Ambar Pete MD Pre Op Diagnosis: post menopausal bleeding Patient Data Age: 54 Gender: F Height: 1.57 m Weight: 99.79 kg Allergies Allergy/AdvReac Type Severity Reaction Status Date / Time No Known Allergies Allergy Verified 06/15/24 17:37 Home Medications ?Medication ?Instructions ?Recorded ?Confirmed ?Type lisinopril 20 mg tablet 20 mg PO DAILY 04/01/22 06/15/24 History sertraline 50 mg tablet 50 mg PO DAILY 04/01/22 06/15/24 History Synthroid 75 mcg tablet 75 mcg PO DAILY #90 tabs 05/13/24 06/15/24 Rx (levothyroxine) metformin 500 mg tablet,extended 500 mg PO DAILY #90 tabs 05/13/24 06/15/24 Rx release 24 hr metoprolol tartrate 25 mg tablet 25 mg PO DAILY@1700 06/15/24 06/15/24 History Laboratory Tests 06/27/24 08:18 POC Capillary Glucose 118 H mg/dl (65-105) Patient hx anesthesia problems: none Family hx anesthesia problems: none Results Review: All pre-operative results and documents have been reviewed as part of the pre- operative evaluation. [facility] Past Medical History Medical History Fco's thyroiditis HTN (hypertension) BMI 40.0-44.9, adult Pre-diabetes Hypothyroidism Family History Family History Other Cerebrovascular accident Depression Diabetes mellitus Family history of malignant neoplasm of bone Family history of malignant neoplasm of thyroid Family history of osteoporosis Family history of thyroid disease Hypertension Social History Social History Smoking status: Never smoker Second hand tobacco smoke exposure: No Alcohol intake: never Substance use: never Substance use type: does not use Do You Feel Safe in your Home?: Yes Lack of Transportation: No Lack of Food: Never True Current Housing: I Have Housing Concerned About Future Housing: No Difficulty Paying Gas/Electric Bills: No Difficulty Paying for Meds: No Currently Unemployed: No Education: Master's Degree or Higher Difficulty w/ Childcare or Family Care: No Living arrangements: with family Spiritual care concerns: No Anes - Eval Final PreProcedure Day of Procedure 06/27/24 08:37 Patient weight: morbidly obese Heart: regular rate and rhythm Lungs: clear to auscultation Airway: Mallampati scale class II Neurological: alert and oriented Last oral intake: >/= 8 hours ASA classification: III Emergent: no Anesthetic plan: proceed Anesthesia type and monitoring: general GIVS and standard monitoring Results Review: All pre-operative results and documents have been reviewed as part of the pre- operative evaluation. Informed Consent: The patient's anesthetic plan and its attendant risks and benefits were discussed with the patient/family/POA. Questions were solicited and answers provided to the satisfaction of the patient/family/POA.
--- NOTE | 2024-06-27 09:44 | SUR.OPER ---
Fluid deficit 170
[2024-06-27] MEDS: KETOROLAC 30 MG/ML VIAL (*BKC) IV PUSH (09:46)
[2024-06-27 09:50] VITALS: BP 113/67; PULSE 83; RESP 14; O2SAT 93
--- NOTE | 2024-06-27 09:54 | W.PM.PROC2 ---
Procedure Note - Detailed Date of Procedure 06/27/24 Pre-op Diagnosis post menopausal bleeding Post-op Diagnosis Same Procedure Performed D&C hysteroscopy Surgeon Ambar Pete MD Anesthesia MAC Findings External os is stenotic. Internal os is stenotic. Appearance of adenomyosis and atrophy. Description of Procedure The patient was taken to the operating room and placed under anesthesia in the dorsal lithotomy position. The Graves speculum was placed was noted to be too wide. The Leoncio speculum was then placed cervix grasped on the anterior lip with a tenaculum. The external os was stenotic. The sound and small Hegar dilators are not able to pass. The os Finders were used and the external os is past. There is resistance at the internal os. I attempted to hydro dissect to find the endometrial cavity following several paths. There appears to be adenomyosis throughout the cervix and the true endometrial canal is uncertain. The hysteroscope was removed and the os Finders were again used and the sound placed and sounds to 6cm. The hysteroscope was again placed and the area appears slightly wider and the cavity may be entered. However no obvious tubal ostia are visualized. No obvious endometrial cavity was encountered. The sharp curette is used to curette the possible endometrium versus the endocervix. Minimal material was obtained consistent with the atrophic appearance. All instruments are removed. Sponge, needle, and instrument counts are correct per the OR staff. The patient was awakened from anesthesia and taken to recovery in stable condition. Estimated Blood Loss 5 Drains No Packing No Pathology Yes (Curettings possible endometrial versus endocervical) Complications No immediate complications Condition Stable Disposition PACU
[2024-06-27 10:00] VITALS: O2SAT 98
[2024-06-27 10:14] LABS: Glucose Point of Care 118 mg/dl (65-105)
[2024-06-27 10:15] VITALS: BP 97/58; PULSE 82; RESP 14; O2SAT 92
[2024-06-27 10:45] VITALS: BP 105/52; PULSE 64; RESP 14; O2SAT 95
== END 2024-06-27 10:55 | disposition home or self-care (01) ==
PROVIDERS: PCP Nurse Practitioner; Visit Provider Obstetrics & Gynecology Gynecology
PROC: 0U5B8ZZ Destruction of Endometrium, Via Natural or Artificial Opening Endoscopic (ICD-10-PCS; CPT 58563; principal; 2024-06-27 09:45)
DX: N95.0 Postmenopausal bleeding (principal); Z79.84 Long term (current) use of oral hypoglycemic drugs; E66.01 Morbid (severe) obesity due to excess calories; Z68.41 Body mass index [BMI] 40.0-44.9, adult
CPT/HCPCS: 58558; 82948; 88305; A9270; J1885; J2003; J2250; J2405; J2704; J7120

== ENCOUNTER 2024-10-05 14:58 | Outpatient (CLI) | payer BC, SELFPAY ==
--- NOTE | ~2024-10-05 | MM_ITS ---
EXAMINATION: MM screening tiago BI w mariam HISTORY: Screening TECHNIQUE: Craniocaudal and mediolateral oblique 3-D tomosynthesis images were obtained and synthetic 2-D images were generated. CAD analysis was submitted and interpreted. COMPARISON: Comparison to multiple prior studies sequentially, with oldest reviewed study dated 04/2017. BREAST PARENCHYMAL COMPOSITION: There are scattered areas of fibroglandular density. FINDINGS: There is no evidence of suspicious mass, calcification, or architectural distortion to sugg est malignancy in either breast. There has been no suspicious interval change. IMPRESSION: 1. No mammographic evidence of malignancy. 2. Recommend routine screening mammography in one year. BI-RADS Category 1: Negative Reviewed, dictated and finalized at location A.
== END 2024-10-05 14:59 | disposition home or self-care (01) ==
LOC: MICIMG 14:58
PROVIDERS: PCP Nurse Practitioner; Visit Provider Nurse Practitioner
DX: Z12.31 Encounter for screening mammogram for malignant neoplasm of breast (principal)
CPT/HCPCS: 77063; 77067

== ENCOUNTER 2024-12-30 07:12 | Outpatient (CLI) | payer BC, SELFPAY ==
--- NOTE | ~2024-12-30 | DEXA_ITS ---
Bone Density Report Name: GUZMAN ALVAREZ Age: 54 Sex: Female Ethnicity: White Date of : 1970 Indication: postmenopausal; screening for osteoporosis; cancer; Referring Provider: BERNA, RAGINI Study: Bone densitometry was performed. Exam Date: December 30, 2024 Accession number: [id number] Bone Density: Region BMD T-score Z-score Classification AP Spine(L1-L4) 1.284 2.2 3.1 Normal Femoral Neck (Left) 0.914 0.6 1.5 Normal Total Hip (Left) 1.115 1.4 2.0 Normal Femoral Neck (Right) 0.864 0.1 1.1 Normal Total Hip (Right) 1.175 1.9 2.5 Normal Total Hip Mean 1.145 1.7 2.3 Normal World Health Organization criteria for BMD impression classify patients as: Normal (T-score at or above -1.0), Osteopenia (T-score between -1.0 and -2.5), or Osteoporosis (T-score at or below -2.5). 10-year Fracture Risk: FRAX not reported because: All T-scores for Spine Total, Hip Total, Femoral Neck at or above -1.0 Clinical Information Provided by Patient: Has used the following medications: Vitamin D Has the following medical conditions: Cancer Patient maximum height was 62 Menopause Age: 53 No regular weight bearing exercise Drinks caffeinated beverages Onset of menses at age 10 Number of children 0 Impression: The patient has normal bone mass. Discussion: BONE DENSITY IS ABOVE THE MINIMUM DESIRABLE LEVEL AT ALL SKELETAL SITES TESTED. This patient?s bone mineral density is above the minimum desirable level (T-score -1.0 or better) at all sites measured. The patient should follow a healthful lifestyle (good nutrition with adequate calcium and vitamin D, and appropriate weight-bearing exercise). Follow-Up: Consider repeating this study in 5 years or sooner if there is some new clinical indication. Reported by: SANJUANA on 12/30/2024 7:53:00 AM. Reviewed, dictated and finalized at location A.
== END 2024-12-30 07:13 | disposition home or self-care (01) ==
LOC: ANHFOHIMG 07:14
PROVIDERS: PCP Internal Medicine; Visit Provider Nurse Practitioner
DX: Z78.0 Asymptomatic menopausal state (principal); Z13.820 Encounter for screening for osteoporosis
CPT/HCPCS: 77080

== ENCOUNTER 2025-03-29 12:12 | Outpatient (CLI) | payer BC, SELFPAY ==
--- NOTE | ~2025-03-29 | US_ITS ---
EXAMINATION: US thyroid DATE: 03/29/2025 12:39 INDICATION: Hypothyroidism. Thyroid cancer status post right thyroidectomy. TECHNIQUE: Multiple ultrasound images of the thyroid were obtained. COMPARISON: 10/05/2023 FINDINGS: The right thyroid lobe is not visualized and reportedly surgically absent. The left thyroid lobe measures 8.0 x 3.8 x 3.3 cm. Wider than tall 3.6 cm mixed solid and cystic nodule with hypoechoic solid components with smooth margins and without echogenic foci in the mid to inferior left thyroid (TI-RADS 2, not suspicious, no FNA recommended) and with prior benign biopsy performed on 05/17/2024. There is a second 1.0 cm wider than tall solid hyperechoic nodule with smooth margins and without echogenic foci in the upper left thyroid lobe (TI-RADS 3, mildly suspicious , FNA if >=2.5 cm, annual followup is >=1.5 cm). IMPRESSION: 1. A couple left thyroid nodules, neither currently meeting criteria for biopsy and the larger with recent benign biopsy. Would recommend continued annual ultrasound follow-up. Reviewed, dictated and finalized at location A. 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 A couple left thyroid nodules, neither currently meeting criteria for biopsy and the larger with recent benign biopsy. Would recommend continued annual ult rasound follow-up.
== END 2025-03-29 12:13 | disposition home or self-care (01) ==
PROVIDERS: PCP Internal Medicine; Visit Provider Internal Medicine
DX: E04.2 Nontoxic multinodular goiter (principal); E89.0 Postprocedural hypothyroidism; C73 Malignant neoplasm of thyroid gland; R73.03 Prediabetes; Z68.36 Body mass index [BMI] 36.0-36.9, adult; Z68.41 Body mass index [BMI] 40.0-44.9, adult
CPT/HCPCS: 76536